=== PATIENT | male | born 1960 | race Caucasian/White ===

== ENCOUNTER → 2019-10-31 | Outpatient (CLI) | payer OTHER, SELFPAY ==
--- NOTE | 2019-11-02 08:01 | PFT ---
INTRODUCTION: The patient is a 59-year-old male that presents for pulmonary function studies secondary to a diagnosis of shortness of breath. Respiratory therapy reports good patient effort. Bronchodilators were used during testing. INTERPRETATION: Forced expiration spirometry demonstrates no evidence of a large airways obstructive ventilatory defect. There was no significant response to aerosolized bronchodilators. Spirograms are of good quality and plateau normally. Body plethysmography was performed and reveals lung volumes to be within normal limits. Diffusing capacity by single breath CO is also within normal limits. IMPRESSION: Grossly normal pulmonary function studies.
== END | disposition home or self-care (01) ==
PROVIDERS: Referring Provider Nurse Practitioner Family; Visit Provider Nurse Practitioner Family
DX: R06.02 Shortness of breath (principal); R07.89 Other chest pain; R53.83 Other fatigue; R53.1 Weakness
CPT/HCPCS: 94060; 94726; 94729

== ENCOUNTER → 2019-11-16 | Outpatient (CLI) | payer OTHER, SELFPAY ==
--- NOTE | 2019-11-17 12:37 | STRESSREP ---
Stress Test Report Date: 11/16/2019 Procedure: Exercise tolerance test Indications: Shortness of breath, chest tightness Consent: Per the patient Procedure: The patient exercised on a José Manuel protocol for 7 minutes and 30 seconds achieving a peak heart rate of 150 bpm (92 % predicted maximal heart rate) with a peak blood pressure 144/80 mmHg and a peak MET capacity of approximately 9.3 mET's. The baseline ECG demonstrated normal sinus rhythm. The peak exercise ECG demonstrated no significant ischemic changes. [There were no cardiac dysrhythmias pretest, during exercise, or recovery]. The functional capacity was considered normal for age. Patient had chest tightness at rest that became worse with exercise. The examination was discontinued secondary to dyspnea. Impression: 1. Technically adequate (percent predicted maximal heart rate greater than 85%) exercise tolerance test 2. Stress test is positive for chest pain at baseline that got worse with exertion. 3. Stress test test is negative for exercise-induced EKG changes of ischemia. 4. Functional capacity is normal for age This note was generated with [employer] software. It may contain incorrect words, spelling, and punctuation that were not noted in checking the note before signing.
== END | disposition home or self-care (01) ==
PROVIDERS: PCP Nurse Practitioner Family; Referring Provider Nurse Practitioner Family; Visit Provider Nurse Practitioner Family
DX: R06.02 Shortness of breath (principal); R07.89 Other chest pain
CPT/HCPCS: 93017

== ENCOUNTER → 2019-11-17 | Outpatient (CLI) | payer OTHER, SELFPAY ==
[2019-11-16 14:43] VITALS: BMI 33.7
--- OUTSIDE RECORDS SUMMARY | 2020-04-23 07:49 | XMS RPT_ITS | CCD ---
:1960 External Reference #:[id number] Author Organization [employer] Care Team Providers Name Role Phone WASHINGTON MARIE Admitting Unavailable MORAH, WASHINGTON Attending Unavailable HORTON, A Referring Unavailable MORAH, WASHINGTON Primary Care Unavailable HORTON, A Consulting Unavailable PROVIDER Consulting Unavailable PROVIDER Consulting Unavailable PROVIDER Consulting Unavailable HORTON, A Referring Unavailable REED, DO Admitting Unavailable REED, DO Attending Unavailable REED, DO Primary Care Unavailable HORTON, A Consulting Unavailable PROVIDER Consulting Unavailable PROVIDER Consulting Unavailable PROVIDER Consulting Unavailable KINCAID, C Admitting Unavailable KINCAID, C Attending Unavailable KINCAID, C Primary Care Unavailable HORTON, A Consulting Unavailable HORTON, A Referring Unavailable PROVIDER Consulting Unavailable PROVIDER Consulting Unavailable PROVIDER Consulting Unavailable Teresa (Gyn Physician) Primary Care Provider Allergies Reported Allergen Reaction(s) Severity Date of Onset Location Sulfonamides (Antibiotic) Unknown [facility] Reposi tory Sulfonamides (Antibiotic) 07-20-2005 - [facility] ([id number]) Medications Medication Name Sig Date Prescriber Location Omeprazole omeprazole 40 mg capsule [facility] Provider [facility] ([id number]) Take 40 mg by mouth once daily. 0 Active Comment: Take 40 mg by mouth once nilo ly. Spironolactone spironolactone 03-11-2020 Jerry (Gyn Physician) [facility] (ALDACTONE) 25 mg tablet Teresa ([id number]) Indications: Essential hypertension , Pedal edema Take 1 tablet by mouth once daily. 30 tablet 2 03/11/2020 Active Comment: Take 1 tablet by mouth once daily. Problems Category Problem Name Status Date Location Abdominal pain Left upper quadrant Active [facility] pain (32025) Allergic reactions Allergy status to Active 10-08-2019 - [facility] sulfonamides [facility] (68490) Anxiety disorders Anxiety Active [facility] (04032) Essential hypertension Essential (primary) Active 11-25-2013 - [facility] hypertension [facility] ([id number]) Fluid and electrolyte Hypokalemia Active 10-08-2019 - Jose R P omerene disorders [facility] (24123) Gastrointestinal [facility] (09037[facility] Nonspecific chest pain Chest pain Active [facility] (95836) Other lower respiratory Shortness of breath Active 10-08-2019 - Jose R Pomerene disease [facility] (42580) Other upper respiratory Acute upper Active 2019 - Jose R Pomerene infections respiratory [facility] infection, (63886) unspecified Pneumonia (except that Pneumonia, Active 10-08-2019 - Jose R Pomerene caused by tuberculosis or unspecified organism [facility] sexually transmitted (12957) disease) Residual codes; Sleep apnea, Active 10-08-2019 - Jose R Pomeren e unclassified unspecified [facility] (08245) Residual codes; Edema of foot Active [facility] linic unclassified ([id number]) Results Result Name Value Range Unit Interpretation Flag Date Location progress on 2020-04 PROGRESS HNO ID: [id number] Normal 04-12-2020 [facility] Author: Andre (Arlen.Kathya) REYNA Talavera.KATHYA [place] ([id number]) Service: ? Author Type: Nurse Practitioner Type: Progress Notes Filed: 04/12/2020 9:12 AM Note Text: Chief Complaint Patient presents with: Follow Up This Team Access Model visit is a virtual encounter. It requ ired patient-provider interaction for the medical decision making as documented below. Patient was offered a virtual/telemedicine appointmen t in lieu of an office visit due to recommendations to reduce patient exp osure to COVID-19. HIPAA secured video was used for evaluation of this patient. Patient agrees to the visit: Yes Patient Location: [facility] Jose Asif is a 59 year old male who is contacted today f or a virtual visit This is an established patient of Dr. Jerry Lama APRN.KATHYA Reports: Follow-up on blood pressure. Placed on Spironolacto ne at previous appointment. Previously been on another diuretic bu t it caused low potassium levels. Was changed to spironolactone. States over the past week he feels at times he has some chest tightness and shortness of breath. This is been chronic for the past 6 months. He has h ad spirometry, echocardiogram, exercise stress test without any significant findings or ischemic changes noted on testing. Has not seen cardiology or pulmonology. No current or active chest pain. Chest tightnes s and shortness of breath occurs at rest and/or with activity. He was given a trial of an inhaler but it did not provide significant relie f of his shortness of breath. He has been compliant with aspire lacto ne over the past month. Blood pressures have averaged 140/80. Denies ene e effects from the medication. Past medical history, appointments, medications, allergies r eviewed 04/12/2020 Previous Medical History PAST MEDICAL HISTORY Diagnosis Date - Abdominal pain, left upper quadrant - Allergic rhinitis, cause unspecified - Arrhythmia - Blood in stool - Hernia of unspecified site of abdominal cavity without men tion of obstruction or gangrene umbilical - High cholesterol - Snoring - Umbilical hernia without mention of obstruction or gangren e - Unspecified essential hypertension borderline Previous Surgical History PAST SURGICAL HISTORY Procedure Laterality Date - CHOLECYSTECTOMY 11/20/2019 Dr. Sanchez - COLONOSCOP W/ OR W/O [facility] SPEC 12/16/15 Colonoscopy - COLONOSCOPY 2002 - REMOVAL OF TONSILS,12+ Y/O age 19 - REPAIR UMBILICAL KAYLA,5+Y/O,REDUC 10/25/2009 - UNSPECIFIED ORAL SURGERY PROCEDURE, BY REPORT one wisdom tooth removed Family History FAMILY HISTORY Problem Relation Age of Onset - Diabetes Mother - Hypertension Mother - Lipids Mother - Diabetes Maternal Grandmother Patient Allergies ALLERGIES Allergen Reactions - Sulfa (Sulfonamide * Current Medications Current Outpatient Medications on File Prior to Visit Medication Sig - spironolactone (ALDACTONE) 25 mg tablet Take 1 tablet by m outh once daily. - omeprazole 40 mg capsule Take 40 mg by mouth once daily. No current facility-administered medications on file prior t o visit. Social History Social History Tobacco Use - Smoking status: Never Smoker - Smokeless tobacco: Former User - Tobacco comment: used for 20-30 years, quit about 13 years ago Substance Use Topics - Alcohol use: Yes Frequency: Monthly or less Drinks per session: 1 or 2 Binge frequency: Less than monthly Comment: occasionally/socially - Drug use: No Review of Symptoms GENERAL: No malaise or fatigue. No fevers. HEENT: Negative for headaches Nose POS for congestion and nasal discharge NECK: Negative for pain or swelling. RESPIRATORY: No wheezing, Difficulty breathing. No cough. Ch ronic shortness of breath CARDIOVASCULAR: Negative for chest pain. Chronic chest tight ness MUSCULOSKELETAL: Negative for bodyaches. Occasional extremit y swelling SKIN: Negative for rash or itching Neuro: No lightheadedness or dizziness EXAM: There were no vitals taken for this visit. Virtual visit completed using video, limited exam completed. Patient sounds or appears ill: No General Appearance: Well appearing, alert, in no acute distr ess, well-hydrated, well nourished. Skin: Skin color normal Head: Normocephalic. No facial swelling or redness. EENT: Eyes nonreddened. No discharge. External ears nonredde marjorie and no swelling. Neck: No mass or lesions. No swelling. FROM Patient is not able to speak in complete sentences: No Patient has labored breathing: No. Patient is audibly coughing: No Psych: Attitude - cooperative, easily engaged in conversatio n Affect - Euthymic, normal mood Mental status: Alert. Speech is clear and fluent with good r epetition, comprehension Appearance - Normal hygiene and grooming appropriate Coordination: No abnormal or extraneous movements. Gait/Stance: Posture is normal. Health Maintenance List HEPATITIS C SCREENING due on 1980 HIV SCREENING due on 1980 BP CONTROLLED (<130/80) due on 1980 DTAP,TDAP,TD(1 - Tdap) due on 1981 LIPID SCREEN due on 1997 SHINGRIX VACCINE(1 of 2) due on 2012 PROSTATE CANCER SCREENING DISCUSSION due on 2017 INFLUENZA(1) due on 03/12/2020 ANNUAL PCP TEAM CHRONIC DISEASE VISIT due on 03/11/2021 DIABETES SCREEN due on 01/01/2023 COLONOSCOPY due on 12/16/2025 MENINGOCOCCAL CONJUGATE Completed Data reviewed Last 5 Encounter BP Readings: Date: BP: 03/11/2020 138/92 02/06/2020 132/78 03/21/2017 122/82 02/10/2016 121/84 11/22/2015 126/76 BMI Readings from Last 5 Encounters: 03/11/20 : 34.17 kg/m? 02/06/20 : 33.51 kg/m? 03/21/17 : 33.25 kg/m? 02/10/16 : 32.98 kg/m? 12/16/15 : 33.16 kg/m? Last 5 Encounter Wt Readings: Date: Wt: 03/11/2020 117.5 kg (259 lb) 02/06/2020 115.2 kg (254 lb) 03/21/2017 114.3 kg (252 lb) 02/10/2016 113.4 kg (250 lb) 11/22/2015 114 kg (251 lb 5.2 oz) Medication and allergy list reviewed, reconciled and updated 04/12/2020 ASSESSMENT/PLAN: 1. Essential hypertension - ICD9: 401.9, ICD10: I10 (primary diagnosis) - fair control - Continue current medication(s) - Encouraged dietary sodium restriction/DASH diet - Recommend home blood pressure monitoring, to bring results in on next visit - Reviewed risks of HTN and principles of treatment - Goal of BP <140/90 2. Low blood potassium - ICD9: 276.8, ICD10: E87.6 Recheck CMP - CMP (CMP) (FOR REMOTE [facility] USE) 3. Other chest pain - ICD9: 786.59, ICD10: R07.89 Chest pain of unclear etiology, patient with significant ris k factor(s) of Hypertension and Obesity. Previous work-up completed which w as unremarkable to this point. No active chest pain during tolouise y's appointment. - Referral to Cardiology Patient will seek care in the emergency room for the followi ng: Any concerns of chest pain pressure or palpitations; any chest p ain that changes in severity, quality or location; chest pain that is associated with lightheadedness, dizziness, indigestion and/or shortnes s of breath, or that radiates to the jaw, neck, or back. The patient is i nstructed to call 911 for transport via EMS or head directly to the ER. T he patient verbalizes understanding. Follow-up with primary care provider after cardiology consul tation. - CONSULT TO CARDIOLOGY Andre Talavera DNP.SHEET METAL SUPERINTENDENT This note was completed with [email or web address] dictation software. Note was reviewed for accuracy. There may be minor misspellings or gr ammar miscues with [email or web address] Dictation. [facility] [address] [place], [place] [address] Total appointment time on virtual with patient = 20 minutes progress on 2020-02 PROGRESS HNO ID: [id number] Normal 03-11-2020 [facility] Author: Jerry (Gyn Physician) [facility] ([id number]) Service: ? Author Type: Nurse Practitioner Type: Progress Notes Filed: 03/20/2020 12:58 PM Note Text: Patient presents with: Follow Up: Elevated BP, swelling in feets and ankles intermi ttently HPI: Jose Asif is a 59 year old male who presents to the offi ce today for review of health conditions. Concerns today: He is still having some SOB, and starting to think that this is r/t stress. Cannot pinpoint anything specific that c auses it or when it happens. He does have a lot of stress at his job. Has gained some weight. Has noticed over the past 2-3 weeks, his ankles have been swelling a bit. This swelling improves with elevat ion. His Bps have been running 140's/90's at home. Last 3 Encounter BP Readings: Date: BP: 03/11/2020 138/92 02/06/2020 132/78 03/21/2017 122/82 PAST MEDICAL HISTORY Diagnosis Date - Abdominal pain, left upper quadrant - Allergic rhinitis, cause unspecified - Arrhythmia - Blood in stool - Hernia of unspecified site of abdominal cavity without men tion of obstruction or gangrene umbilical - High cholesterol - Snoring - Umbilical hernia without mention of obstruction or gangren e - Unspecified essential hypertension borderline PAST SURGICAL HISTORY Procedure Laterality Date - CHOLECYSTECTOMY 11/20/2019 Dr. Sanchez - COLONOSCOP W/ OR W/O [facility] SPEC 12/16/15 Colonoscopy - COLONOSCOPY 2002 - REMOVAL OF TONSILS,12+ Y/O age 19 - REPAIR UMBILICAL KAYLA,5+Y/O,REDUC 10/25/2009 - UNSPECIFIED ORAL SURGERY PROCEDURE, BY REPORT one wisdom tooth removed Social History Tobacco Use - Smoking status: Never Smoker - Smokeless tobacco: Former User - Tobacco comment: used for 20-30 years, quit about 13 years ago Substance Use Topics - Alcohol use: Yes Frequency: Monthly or less Drinks per session: 1 or 2 Binge frequency: Less than monthly Comment: occasionally/socially - Drug use: No FAMILY HISTORY Problem Relation Age of Onset - Diabetes Mother - Hypertension Mother - Lipids Mother - Diabetes Maternal Grandmother Allergies: ALLERGIES Allergen Reactions - Sulfa (Sulfonamide * Current Meds: omeprazole 40 mg capsule Take 40 mg by mouth once daily. Review of Systems Constitutional: Negative. HENT: Negative. Respiratory: Positive for chest tightness and shortness of b reath. Cardiovascular: Positive for leg swelling. Gastrointestinal: Negative. Endocrine: Negative. Genitourinary: Negative. Musculoskeletal: Negative. Neurological: Negative. Psychiatric/Behavioral: Stress PE: 03/11/20 0844 BP: 138/92 Pulse: 84 Resp: 16 Weight: 117.5 kg (259 lb) Physical Exam Vitals signs and nursing note reviewed. Constitutional: Appearance: Normal appearance. HENT: Head: Normocephalic and atraumatic. Cardiovascular: Rate and Rhythm: Normal rate and regular rhythm. Pulses: Normal pulses. Heart sounds: Normal heart sounds. Pulmonary: Effort: Pulmonary effort is normal. Breath sounds: Normal breath sounds. Skin: General: Skin is warm and dry. Capillary Refill: Capillary refill takes less than 2 seconds . Neurological: General: No focal deficit present. Mental Status: He is alert and oriented to person, place, an d time. Psychiatric: Mood and Affect: Mood normal. Behavior: Behavior normal. ASSESSMENT/PLAN: 1. Essential hypertension - ICD9: 401.9, ICD10: I10 (primary diagnosis) Would rather not be taking a medication for his blood pressu re, as he feels he has felt poorly from these types of medications in the past. Will utilize spironolactone, as he does have pedal edema as well as hx hypokalemia. He will notify me in 1 month of recent at-home blood pressures. Will follow up in the office again in 3 months. - SPIRONOLACTONE 25 MG TABLET 2. Pedal edema - ICD9: 782.3, ICD10: R60.0 See #1. - SPIRONOLACTONE 25 MG TABLET 3. Situational anxiety - ICD9: 300.09, ICD10: F41.8 Causing his SOB. Negative cardiac work up. At this time refu sing medication for these symptoms. Will continue to monitor. Jerry Lama APRN.SHEET METAL SUPERINTENDENT To ER if develops chest pain, shortness of breath, or severe worsening of symptoms. Discussed risks, benefits, alternatives, and potential side effects of medications. Patient expressed understanding and agreed with the plan. Jerry Lama APRN.SHEET METAL SUPERINTENDENT [address] [place] [address] cnov on 2020-03-11 CNOV Office Visit (FAMPWS) Normal 03-11-[address] [place] [address] JOSE Rojas ([id number]) 1960 Formerly [facility] Date Time Provider Department ([id number]) 03/11/20 8:40 AM [facility]KATH[facility] today, we recorded the following informati on about you: Pulse Respiration Blood pressure Weight 84/minute 16/minute 138/92 117.5 kg Jerry Lama APRN.CNP 03/20/2020 12:58 PM Signed Patient presents with: Follow Up: Elevated BP, swelling in feets and ankles intermi ttently HPI: Jose Asif is a 59 year o ld male who presents to the office today for review of health conditions. Concerns today: He is still having some SOB, and starting to think that this is r/t stress. Cannot pinpoint anything specific that causes it or when it happens. He does have a lot of stress at his job. Has gained some weight. Has noticed over the past 2-3 weeks, his ankles have been swelling a bit. This swelling improves with elevation. His Bps have been running 140's/90's at home. Last 3 Encounter BP Readings: Date: BP: 03/11/2020 138/92 02/06/2020 132/78 03/21/2017 122/82 PAST MEDICAL HISTORY Diagnosis Date - Abdominal pain, left upper quadrant - Allergic rhinitis, cause unspecified - Arrhythmia - Blood in stool - Hernia of unspecified site of abdominal cavity without mention of obstruction or gangrene umbilical - High cholesterol - Snoring - Umbilical hernia without mention of obstruction or gangren e - Unspecified essential hypertension borderline PAST SURGICAL HISTORY Procedure Laterality Date - CHOLECYSTECTOMY 11/20/2019 Dr. Sanchez - COLONOSCOP W/ OR W/O [facility] SPEC 6/6/16 Colonoscopy - COLONOSCOPY 2002 - REMOVAL OF TONSILS,12+ Y/O age 19 - REPAIR UMBILICAL KAYLA,5+Y/O,REDUC 10/25/2009 - UNSPECIFIED ORAL SURGERY PROCEDURE, BY REPORT one wisdom tooth removed Social History Tobacco Use - Smoking status: Never Smoker - Smokeless tobacco: Former User - Tobacco comment: used for 20-30 years, quit about 13 years ago Substance Use Topics - Alcohol use: Yes Frequency: Monthly or less Drinks per session: 1 or 2 Binge frequency: Less than monthly Comment: occasionally/socially - Drug use: No FAMILY HISTORY Problem Relation Age of Onset - Diabetes Mother - Hypertension Mother - Lipids Mother - Diabetes Maternal Grandmother Allergies: ALLERGIES Allergen Reactions - Sulfa (Sulfonamide * Current Meds: omeprazole 40 mg capsule Take 40 mg by mouth once daily. Review of Systems Constitutional: Negative. HENT: Negative. Respiratory: Positive for chest tightness and shortness of b reath. Cardiovascular: Positive for leg swelling. Gastrointestinal: Negative. Endocrine: Negative. Genitourinary: Negative. Musculoskeletal: Negative. Neurological: Negative. Psychiatric/Behavioral: Stress PE: 03/11/20 0844 BP: 138/92 Pulse: 84 Resp: 16 Weight: 117.5 kg (259 lb) Physical Exam Vitals signs and nursing note reviewed. Constitutional: Appearance: Normal appearance. HENT: Head: Normocephalic and atraumatic. Cardiovascular: Rate and Rhythm: Normal rate and regular rhythm. Pulses: Normal pulses. Heart sounds: Normal heart sounds. Pulmonary: Effort: Pulmonary effort is normal. Breath sounds: Normal breath sounds. Skin: General: Skin is warm and dry. Capillary Refill: Capillary refill takes less than 2 seconds . Neurological: General: No focal deficit present. Mental Status: He is alert and oriented to person, place, an d time. Psychiatric: Mood and Affect: Mood normal. Behavior: Behavior normal. ASSESSMENT/PLAN: 1. Essential hypertension - ICD9: 401.9, ICD10: I10 (primary diagnosis) Would rather not be taking a medication for his blood pressure, as he feels he has felt poorly from these types of medications in the past. Will utilize spironolactone, as he does have pedal ed reji as well as hx hypokalemia. He will notify me in 1 month of recent at-home blood pre ssures. Will follow up in the office again in 3 months. - SPIRONOLACTONE 25 MG TABLET 2. Pedal edema - ICD9: 782.3, ICD10: R60.0 See #1. - SPIRONOLACTONE 25 MG TABLET 3. Situational anxiety - ICD9: 300.09, ICD10: F41.8 Causing his SOB. Negative cardiac work up. At this time re fusing medication for these symptoms. Will continue to monitor. Jerry Lama APRN.CNP To ER if develops chest pain, shortness of breath, or severe worsening of symptoms. Discussed risks, benefits, alternatives, and potential side effects of medications. Patient expressed understanding and agreed with the plan. Jerry Lama APRN.CNP [address] [place] [address] Jerry Lama APRN.CNP 03/11/2020 9:12 AM Signed Start taking your spironolactone on a daily basis, in the mo rning. Send me a [employer] message in 3-4 weeks w ith some recent BP readings and report of your ankle swelling. Follow up in the office in 3 months. Referring Provider: SELF [[id number]] Allergies As of Date: 03/11/2020 Noted Allergy Reaction SULFA (SULFONAMIDE ANTIBIOTICS) 07/20/2005 Date Reviewed: 03/11/2020 Reviewed by: Jerry Lama - Fully Assessed Reason for Visit: Follow Up [171] Cmt: Elevated BP, swelling in fe ets and ankles intermittently Primary Visit Diagnosis:Essential hypertension [I10] Other Visit Diagnoses:Pedal edema [R60.0] Situational anxiety [F41.8] Order(s):spironolactone (ALDACTONE) 25 mg tabletTake 1 tab let by mouth once daily.Disp: 30 tabletRfl: 2 Prescriptions as of 03/11/2020 Sig: OMEPRAZOLE 40 MG CAPSULE,MATTHEW* Take 40 mg by mouth once josé manuel * SPIRONOLACTONE 25 MG TABLET Take 1 tablet by mouth once d* Problem List As Of Date 03/11/2020 Noted Resolved ABDOMINAL PAIN LUQ [R10.12] Hypertension [I10] 11/25/2013 Blood in stool [K92.1] Other instructions from your clinician: Start taking your spironolactone on a daily basis, in the mo rning. Send me a [employer] message in 3-4 weeks with some recent BP r eadings and report of your ankle swelling. Follow up in the office in 3 months. Prescriptions ordered this encounter Disp Refills Start End SPIRONOLACTONE 25 MG TABLET 30 t* 2 03/11/2020 Route: ORAL Sig: Take 1 tablet by mouth once daily. Disposition: Return in about 3 months (around 06/10/2020) fo r anxiety, SOB, HTN follow up. Follow-up and Disposition History Recorded Encounter Status:Closed by JERRY LAMA on 03/20/20 progress on 2020-01 PROGRESS HNO ID: [id number] Normal 02-06-2020 [facility] Author: Dora Santiago (Alena) Lottie Nolasco ([id number]) Service: ? Author Type: Physician Gold Nib Grinder Type: Progress Notes Filed: 02/06/2020 7:32 AM Note Text: This note was created using NoteWriter. Subjective Jose Asif is a 59 year old male. HPI Patient presents with left lower tooth pain over the past 4 days. He thinks he has a filling in that tooth that might be coming l oose. He has had some swelling of his lymph nodes on that side and left e ar pain. No fever. No drainage from the tooth. He did take ibuprofen [id number]-[id number]. No nausea or vomiting. No trouble opening and closing his jaw. He has a dentist appointment next week. Review of Systems HENT: Dental pain All other systems reviewed and are negative. PAST MEDICAL HISTORY Diagnosis Date - Abdominal pain, left upper quadrant - Allergic rhinitis, cause unspecified - Arrhythmia - Blood in stool - Hernia of unspecified site of abdominal cavity without men tion of obstruction or gangrene umbilical - High cholesterol - Snoring - Umbilical hernia without mention of obstruction or gangren e - Unspecified essential hypertension borderline Current Outpatient Medications Medication Sig Dispense Refill - omeprazole 40 mg capsule Take 40 mg by mouth once daily. - amoxicillin (AMOXIL) 875 mg tablet Take 1 tablet by mouth twice daily for 10 days. 20 tablet 0 No current facility-administered medications for this visit. PAST SURGICAL HISTORY Procedure Laterality Date - CHOLECYSTECTOMY 11/20/2019 Dr. Sanchez - COLONOSCOP W/ OR W/O [facility] SPEC 12/16/15 Colonoscopy - COLONOSCOPY 2002 - REMOVAL OF TONSILS,12+ Y/O age 19 - REPAIR UMBILICAL KAYLA,5+Y/O,REDUC 10/25/2009 - UNSPECIFIED ORAL SURGERY PROCEDURE, BY REPORT one wisdom tooth removed FAMILY HISTORY Problem Relation Age of Onset - Diabetes Mother - Hypertension Mother - Lipids Mother - Diabetes Maternal Grandmother Social History Tobacco Use - Smoking status: Never Smoker - Smokeless tobacco: Former User - Tobacco comment: used for 20-30 years, quit about 13 years ago Substance Use Topics - Alcohol use: Yes Frequency: Monthly or less Drinks per session: 1 or 2 Binge frequency: Less than monthly Comment: occasionally/socially - Drug use: No Objective BP 132/78 Pulse 88 Temp 37.2 ?C (99 ?F) (Tympanic) Res p 16 Wt 115.2 kg (254 lb) SpO2 96% BMI 33.51 kg/m? Physical Exam Vitals signs reviewed. Constitutional: Appearance: Normal appearance. HENT: Head: Normocephalic and atraumatic. Right Ear: Tympanic membrane, ear canal and external ear nor mal. Left Ear: Tympanic membrane, ear canal and external ear norm al. Nose: Nose normal. Mouth/Throat: Comments: Patient has fillings in teeth #20 and 18. No obvio us swelling of the gumline. He does have some left anterior cer vical lymphadenopathy palpated which is tender. No trismus. No sig nificant overlying facial swelling. Skin: General: Skin is warm and dry. Findings: No rash. Neurological: Mental Status: He is alert. Assessment and Plan ASSESSMENT/PLAN: 1. Dental infection - ICD9: 522.4, ICD10: K04.7 I will start him on amoxicillin. Keep dental appointment. Di scussed red flag symptoms that would warrant ER. Patient agreeable. CROW Estrada on 2020-02-06 [facility] Normal 02-06-20 [place] JOSE Rojas R ([id number]) 1960 [address] JEFF [place] Date Time Provider Department ([id number]) 02/06/20 7:00 AM DORA LISA (ALENA) [facility] During your visit today, we recorded the following informati on about you: Temperature Pulse Respiration Blood pressure 99 degrees 88/minute 16/minute 132/78 Weight 115.2 kg Dora Lisa PA-C 02/06/2020 7:32 AM Signed This note was created using NoteWriter. Subjective Jose Asif is a 59 year old male. HPI Patient presents with left lower tooth p ain over the past 4 days. He thinks he has a filling in that tooth that might be coming loose. He h as had some swelling of his lymph nodes on that side and left ear pain. No fever. No drainage from the tooth. He did take ibuprofen o [id number]. No nausea or vomiting. No trouble opening and closing his jaw. [facility]. Review of Systems HENT: Dental pain All other systems reviewed and are negative. PAST MEDICAL HISTORY Diagnosis Date - Abdominal pain, left upper quadrant - Allergic rhinitis, cause unspecified - Arrhythmia - Blood in stool - Hernia of unspecified site of abdominal cavity without mention of obstruction or gangrene umbilical - High cholesterol - Snoring - Umbilical hernia without mention of obstruction or gangren e - Unspecified essential hypertension borderline Current Outpatient Medications Medication Sig Dispense Refill - omeprazole 40 mg capsule Take 40 mg by mouth once daily. - amoxicillin (AMOXIL) 875 mg tablet Hugo e 1 tablet by mouth twice daily for 10 days. 20 tablet 0 No current facility-administered medications for this visit. PAST SURGICAL HISTORY Procedure Laterality Date - CHOLECYSTECTOMY 11/20/2019 Dr. Sanchez - COLONOSCOP W/ OR W/O [facility] SPEC 12/16/15 Colonoscopy - COLONOSCOPY 2002 - REMOVAL OF TONSILS,12+ Y/O age 19 - REPAIR UMBILICAL KAYLA,5+Y/O,REDUC 10/25/2009 - UNSPECIFIED ORAL SURGERY PROCEDURE, BY REPORT one wisdom tooth removed FAMILY HISTORY Problem Relation Age of Onset - Diabetes Mother - Hypertension Mother - Lipids Mother - Diabetes Maternal Grandmother Social History Tobacco Use - Smoking status: Never Smoker - Smokeless tobacco: Former User - Tobacco comment: used for 20-30 years, quit about 13 years ago Substance Use Topics - Alcohol use: Yes Frequency: Monthly or less Drinks per session: 1 or 2 Binge frequency: Less than monthly Comment: occasionally/socially - Drug use: No Objective BP 132/78 Pulse 88 Temp 37.2 ?C (99 ?F) (Tympanic) R herlinda 16 Wt 115.2 kg (254 lb) SpO2 96% BMI 33.51 kg/m? Physical Exam Vitals signs reviewed. Constitutional: Appearance: Normal appearance. HENT: Head: Normocephalic and atraumatic. Right Ear: Tympanic membrane, ear canal and external ear nor mal. Left Ear: Tympanic membrane, ear canal and external ear norm al. Nose: Nose normal. Mouth/Throat: Comments: Patient has fillings in teeth #20 and 18. No obvio us swelling of the gumline. He does have some left ante rior cervical lymphadenopathy palpated which is tender. No trismus. No significant overlying facial swelling. Skin: General: Skin is warm and dry. Findings: No rash. Neurological: Mental Status: He is alert. Assessment and Plan ASSESSMENT/PLAN: 1. Dental infection - ICD9: 522.4, ICD10: K04.7 I will start him on amoxicillin. Keep dental appointme nt. Discussed red flag symptoms that would warrant ER. Patient agreeable. LAY EstradaC Referring Provider: SELF [[id number]] Allergies As of Date: 02/06/2020 Noted Allergy Reaction SULFA (SULFONAMIDE ANTIBIOTICS) 07/20/2005 Date Reviewed: 02/06/2020 Reviewed by: Bessy Holt Ma - Fully Assessed Reason for Visit: Dental Problem [31] Cmt: left side tooth pain migratin g into gland and ear x 4 days Primary Visit Diagnosis:Dental infection [K04.7] Order(s):amoxicillin (AMOXIL) 875 mg tabletTake 1 tablet by mouth twice daily for 10 days.Disp: 20 tabletRfl: 0 Prescriptions as of 02/06/2020 Sig: OMEPRAZOLE 40 MG CAPSULE,MATTHEW* Take 40 mg by mouth once josé manuel * AMOXICILLIN 875 MG TABLET Take 1 tablet by mouth twice * Problem List As Of Date 02/06/2020 Noted Resolved ABDOMINAL PAIN LUQ [R10.12] Hypertension [I10] 11/25/2013 Blood in stool [K92.1] Prescriptions ordered this encounter Disp Refills Start End AMOXICILLIN 875 MG TABLET 20 t* 0 02/06/2020 02/16/2020 Route: ORAL Sig: Take 1 tablet by mouth twice daily for 10 days. Encounter Status:Closed by DORA LISA PA-C on 02/06/20 progress on 2019-12 PROGRESS HNO ID: [id number] Normal 01-08-2020 [facility] Author: Jerry Harmon) Treesa Nolasco ([id number]) Service: ? Author Type: Nurse Practitioner Type: Progress Notes Filed: 01/08/2020 5:01 PM Note Text: Chief Complaint No chief complaint on file. In lieu of an in person visit due to coronavirus COVID 19 pa ndemic concerns, a virtual Zoom visit was performed with patient. Anabela bucio is aware that I am not fully able to assess symptoms and do a f ull physical exam including vital signs in office at this time. Patient c onsents to the visit. This Team Access Model visit is a virtual encounter. It requ ired patient-provider interaction for the medical decision making as documented below. Patient was offered a virtual/telemedicine appointmen t in lieu of an office visit due to recommendations to reduce patient exp osure to COVID-19. HIPAA secured video was used for evaluation of this patient. 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 Every once in a while he gets the SOB feeling and gets winded easily. But do es not happen very often. He has been back to work for a couple months, an d states he has quite a bit of stress-but states that it comes with the job. He does wonder if the SOB feeling is related to some type of food/bl oating. When he has bloating, he feels that it possibly does put pressure on his lungs and causes some SOB. His stools are pretty normal, if anythi ng on the looser side-but not runny like diarrhea. He does seem to hav e sinus pressure or congestion at the times she has these SOB feelin gs. He does have a fluttering feeling, did wear a heart monitor about 20 years ago for this. Past medical history, appointments, medications, allergies r eviewed 01/08/2020 Previous Medical History PAST MEDICAL HISTORY Diagnosis Date - Abdominal pain, left upper quadrant - Allergic rhinitis, cause unspecified - Arrhythmia - Blood in stool - Hernia of unspecified site of abdominal cavity without men tion of obstruction or gangrene umbilical - High cholesterol - Snoring - Umbilical hernia without mention of obstruction or gangren e - Unspecified essential hypertension borderline Previous Surgical History PAST SURGICAL HISTORY Procedure Laterality Date - CHOLECYSTECTOMY 11/20/2019 Dr. Sanchez - COLONOSCOP W/ OR W/O [facility] SPEC 12/16/15 Colonoscopy - COLONOSCOPY 2002 - REMOVAL OF TONSILS,12+ Y/O age 19 - REPAIR UMBILICAL KAYLA,5+Y/O,REDUC 10/25/2009 - UNSPECIFIED ORAL SURGERY PROCEDURE, BY REPORT one wisdom tooth removed Family History FAMILY HISTORY Problem Relation Age of Onset - Diabetes Mother - Hypertension Mother - Lipids Mother - Diabetes Maternal Grandmother Patient Allergies ALLERGIES Allergen Reactions - Sulfa (Sulfonamide * Current Medications Current Outpatient Medications on File Prior to Visit Medication Sig - perflutren lipid microspheres (DEFINITY) 1.1 mg/mL injecti on (to be provided with echo procedure) Inject 1.3 mL intravenously as directed. Administration Instructions: If no IV access, insert saline lock prior to administering contrast. Discontinue saline lock post exam. I f patient has central line or IVAD, may access for administration accordin g to line specific nursing protocol. Once exam is complete, flush line and de-access per line specific nursing protocol. Diluted IV Bolus: Dilute 1.3 ml of Definity with 8.7 ml of preservative-free saline. No current facility-administered medications on file prior t o visit. Social History Social History Tobacco Use - Smoking status: Never Smoker - Smokeless tobacco: Former User - Tobacco comment: used for 20-30 years, quit about 13 years ago Substance Use Topics - Alcohol use: Yes Frequency: Monthly or less Drinks per session: 1 or 2 Binge frequency: Less than monthly Comment: occasionally/socially - Drug use: No Review of Symptoms GENERAL: Occasional fatigue. No fevers. HEENT: Negative for headaches NECK: Negative for pain or swelling. No lumps RESPIRATORY:Occasional SOB CARDIOVASCULAR: Negative for chest pain. Occasional flutteri ng in chest. GI: No nausea, vomiting, or diarrhea MUSCULOSKELETAL: Negative for bodyaches SKIN: Negative for rash or itching Neuro: No lightheadedness or dizziness EXAM: There were no vitals taken for this visit. Virtual visit completed using video, limited exam completed. General Appearance: Well appearing, alert, in no acute distr ess, well-hydrated, well nourished. Skin: Skin color normal Head: Normocephalic. No facial swelling or redness. Affect - Euthymic, normal mood Mental status: Alert. Speech is clear and fluent with good r epetition, comprehension Appearance - Normal hygiene and grooming appropriate Coordination: No abnormal or extraneous movements. Gait/Stance: Posture is normal. Health Maintenance List HEPATITIS C SCREENING due on 1980 HIV SCREENING due on 1980 BP CONTROLLED (<130/80) due on 1980 DTAP,TDAP,TD(1 - Tdap) due on 1981 LIPID SCREEN due on 1997 SHINGRIX VACCINE(1 of 2) due on 2012 PROSTATE CANCER SCREENING DISCUSSION due on 2017 ANNUAL PCP TEAM CHRONIC DISEASE VISIT due on 11/28/2020 DIABETES SCREEN due on 01/01/2023 COLORECTAL CANCER SCREENING,SEE MODIFIER due on 12/16/2025 INFLUENZA Completed Data reviewed Last 5 Encounter BP Readings: Date: BP: 03/21/2017 122/82 02/10/2016 121/84 11/22/2015 126/76 11/21/2015 132/80 08/20/2014 132/80 BMI Readings from Last 5 Encounters: 03/21/17 : 33.25 kg/m? 02/10/16 : 32.98 kg/m? 12/16/15 : 33.16 kg/m? 11/21/15 : 33.17 kg/m? Last 5 Encounter Wt Readings: Date: Wt: 03/21/2017 114.3 kg (252 lb) 02/10/2016 113.4 kg (250 lb) 11/22/2015 114 kg (251 lb 5.2 oz) 11/21/2015 114 kg (251 lb 6.4 oz) 08/20/2014 113.4 kg (250 lb) Medication and allergy list reviewed, reconciled and updated 01/08/2020 Total appointment time on phone with patient = 21-30 minutes ASSESSMENT/PLAN: 1. SOB (shortness of breath) - ICD9: 786.05, ICD10: R06.02 ( primary diagnosis) Has improved, but still occasionally experiences. Patient fe els this may be related to bloating of his stomach, pushing up on his brittanie phragm. He will keep a food diary to determine if he can narrow down a specific food or category that seems to make him bloat. I do suspect that both his SOB and fluttering sensation of his heart are related to stress and anxiety, although patient does not necessarily feel these would be a cause. Will order Holter Monitor for this fluttering to determine any ab normal beats/rhythms as well as correlation with his SOB. Will foll ow up with him in the office in 6-8 weeks to discuss food diary, BP, an d heart monitor results. 2. Bloating - ICD9: 787.3, ICD10: R14.0 See #1. 3. Fluttering sensation of heart - ICD9: 785.1, ICD10: R00.2 See #1. Jerry Lama APRN.KATHYA welsh on 2020-01-08 KAVON Telephone (FAMWS) Normal 01-08-2020 [place] JOSE Rojas ([id number]) 1960 [place] JEFF [place] Date Time Provider Department ([id number]) 01/08/20 [facility] your visit today, we recorded the following informati on about you: Jerry Lama APRN.CNP 01/08/2020 5:01 PM Signed Please assist patient to schedule for his Holter monitor. LUCIANO Marshall [facility] 01/09/2020 2:26 PM Signed Spoke with patient who will check with [facility] and see if order can be faxed there for placement. Nohemi Brice 01/09/2020 3:00 PM Signed Patient is calling back and stated that info can be faxed to Allergies As of Date: 01/08/2020 Noted Allergy Reaction SULFA (SULFONAMIDE ANTIBIOTICS) 07/20/2005 Date Reviewed: 01/08/2020 Reviewed by: Jerry MirelesPenikese Island Leper HospitalTre Lama - Fully Assessed Reason for Visit: Holter Monitor Application [261] Prescriptions as of 01/08/2020 Sig: OMEPRAZOLE 40 MG CAPSULE,MATTHEW* Take 40 mg by mouth once josé manuel * Problem List As Of Date 01/08/2020 Noted Resolved ABDOMINAL PAIN LUQ [R10.12] Hypertension [I10] 11/25/2013 Blood in stool [K92.1] Encounter Status:Closed by KEITH STERN on 01/09/20 comp metabolic panel on 2020-01-02 Albumin [Mass/Vol] 4.5 3.9-4.9 g/dL Normal 01-02-2020 [facility] ([id number]) Comment: Performed By: #### CMP ####C [address] [phone] ALP [Catalytic activity/Vol] 64 38-113 U/L Normal 0 01-02-2020 [facility] ([id number]) Comment: Performed By: #### CMP ####C [address] [phone] ALT [Catalytic activity/Vol] 37 10-54 U/L Normal 0 01-02-2020 [facility] ([id number]) Comment: Performed By: #### CMP ####C [address] [phone] Anion gap [Moles/Vol] 12 9-18 mmol/L Normal 01-02-20 [facility] ([id number]) Comment: Performed By: #### CMP ####C [address] [phone] AST [Catalytic activity/Vol] 26 14-40 U/L Normal 0 01-02-2020 [facility] ([id number]) Comment: Performed By: #### CMP ####C [address] [phone] Bilirubin [Mass/Vol] 0.7 0.2-1.3 mg/dL Normal 0 [facility] ([id number]) Comment: Performed By: #### CMP ####C [address] [phone] Calcium [Mass/Vol] 9.2 8.5-10.2 mg/dL Normal 01-02-2020 [facility] ([id number]) Comment: Performed By: #### CMP ####C [address] [phone] Chloride [Moles/Vol] 99 97-105 mmol/L Normal 0 [facility] ([id number]) Comment: Performed By: #### CMP ####C [address] [phone] CO2 [Moles/Vol] 28 22-30 mmol/L Normal 01-02-2020 [facility] ([id number]) Comment: Performed By: #### CMP ####C [address] [phone] Creatinine [Mass/Vol] 0.88 0.73-1.22 mg/dL Normal 01-02-20 20 [facility] ([id number]) Comment: Performed By: #### CMP ####C [address] [phone] eGFR- Amer. >60 Normal 01-02-2020 [facility] ([id number]) Comment: Performed By: #### CMP ####C [address] [phone] GFR/1.73 sq M predicted >60 mL/min/{1.73_m2} Normal 01-02-2020 [facility] among non-blacks [facility] ([id number]) (S/P/Bld) [Vol rate/Area] Comment: Result Comment: eGFR (Estima trev GFR) Units of measure: mL/min/1.73 meters squared eGFR is derived from the ree xpressed MDRD Study equation using the following parameters: serum creatinine, age, gender and race. The creatinine assay has been calibrated to be traceable to IDMS. An eGFR <60 mL/min/1.73m2 fo r >3 months is consistent with chronic kidney disease. Refer to KDOQI guidelines for clinical interpretation. In patients with unstable re nal function, e.g. those with acute kidney injury, the eGFR may not accurately reflect actual GFR. Performed By: #### CMP ####C [facility] [place], [place] [phone] Glucose [Mass/Vol] 85 74-99 mg/dL Normal 01-02-2020 [facility] ([id number]) Comment: Result Comment: The [place] Diabetes Association (ADA) provides guidance for cutoff values for fasting glucose and random glucose. The ADA defines fasting as no caloric intake for at least 8 hours. Fas ting plasma glucose results between 100 to 125 mg/dL indicate increased risk for diabetes (prediabetes). Fasting plasma glucose resul ts greater than or equal to 126 mg/dL meet the criteria for diagnosis of diabetes. In the absence of unequivocal hyperglycemia, results should be confirmed by repeat testing. In a patient with classic s ymptoms of hyperglycemia or hyperglycemic crisis, random plasma glucose results greater than or equal to 200 mg/dL meet the criteria for diagnosis of diabetes. Reference: Standards of [facility] Care in Diabetes 2016, [place] Diabetes Association. Diabetes Care. 2016.39(Suppl 1). Performed By: #### CMP ####C [facility] [address] [place], [place] [phone] Potassium [Moles/Vol] 4.1 3.7-5.1 mmol/L Normal 01-02-20 [facility] ([id number]) Comment: Performed By: #### CMP ####C [facility] [place], [place] [phone] Protein [Mass/Vol] 7.5 6.3-8.0 g/dL Normal 01-02-2020 [facility] ([id number]) Comment: Performed By: #### CMP ####C [facility] [address] [place], [place] [phone] Sodium [Moles/Vol] 139 136-144 mmol/L Normal 01-02-2020 [facility] ([id number]) Comment: Performed By: #### CMP ####C [facility] [place], [place] [phone] Urea nitrogen [Mass/Vol] 12 9-24 mg/dL Normal 01-01 [facility] ([id number]) Comment: Performed By: #### CMP ####C [facility] [place], [place] [phone] cnpn on 2019-12-01 CNPN Telephone (FAMPWS) Normal 12-01-2019 [place] [facility] JOSE ASIF ([id number]) 1960 [facility] Date Time Provider Department ([id number]) 12/01/19 JERRY LAMA) KAYA During your visit today, we recorded the following informati on about you: Jerry Lama APRN.CNP 12/01/2019 12:28 PM Signed Please notify patient that his echocardiogram of his heart looks very good. LUCIANO Marshall MA 12/01/2019 12:58 PM Signed Spoke to pt and advised of shantel saldana, pt verbalizes understanding. He would like to know what the next step is/what provider recommends. Please advise, thank you. Stephania Chu MA Allergies As of Date: 12/01/2019 Noted Allergy Reaction SULFA (SULFONAMIDE ANTIBIOTICS) 07/20/2005 Date Reviewed: 11/29/2019 Reviewed by: Jerry Harmon) Teresa - Fully Assessed Reason for Visit: Results [95] Prescriptions as of 12/01/2019 Sig: PERFLUTREN LIPID MICROSPHERES* Inject 1.3 mL intravenously a * LORAZEPAM 0.5 MG TABLET Take 1 tablet by mouth twice * Problem List As Of Date 12/01/2019 Noted Resolved ABDOMINAL PAIN LUQ [R10.12] Hypertension [I10] 11/25/2013 Blood in stool [K92.1] Encounter Status:Closed by JERRY LAMA on 12/21/19 progress on 2019-11 PROGRESS HNO ID: [id number] Normal 11-29-2019 [facility] Author: Jerry (Kathya) Teresa [place] Service: ? ([id number]) Author Type: Nurse Practitioner Type: Progress Notes Filed: 11/29/2019 8:44 AM Note Text: Chief Complaint Patient presents with: Follow Up: F/u on cholecystectomy surgery; some questions on labs; In lieu of an in person visit due to coronavirus COVID 19 pa ndemic concerns, a telephone visit was performed with patient. Minerva ent is aware that I am not fully able to assess symptoms and do a full ph ysical exam including vital signs in office at this time. Patient consen ts to the visit. This Team Access Model visit is a phone encounter. It requir ed patient-provider interaction for the medical decision making as documented below. Patient was offered a virtual/telemedicine appointmen t in lieu of an office visit due to recommendations to reduce patient exp osure to COVID-19. No video was used for evaluation of this patient. 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 His gallb ladder was adhered to his liver, so that made it a little bit more diff icult to remove. Was pretty painful the first couple days, but has be en improving since. He only took a couple doses of the Percocet because h e felt like his pulse was dropping so low from it. He only required a fe w Advil here and there for the pain, and he feels like things are healing up well. He has an appointment tomorrow for a follow up with his surgeon , Dr. Sanchez. The feeling of needing to take the deep breath. He feels courtney t his endurance was building up prior to the surgery, but that he took some steps backward with his endurance by having the surgery and is now having decreased endurance and feeling that shortness of breath/fat igue feeling after about 10 minutes of walking. Past medical history, appointments, medications, allergies r eviewed 11/29/2019 Previous Medical History PAST MEDICAL HISTORY Diagnosis Date - Abdominal pain, left upper quadrant - Allergic rhinitis, cause unspecified - Arrhythmia - Blood in stool - Hernia of unspecified site of abdominal cavity without men tion of obstruction or gangrene umbilical - High cholesterol - Snoring - Umbilical hernia without mention of obstruction or gangren e - Unspecified essential hypertension borderline Previous Surgical History PAST SURGICAL HISTORY Procedure Laterality Date - CHOLECYSTECTOMY 11/20/2019 Dr. Sanchez - COLONOSCOP W/ OR W/O [facility] SPEC 12/16/15 Colonoscopy - COLONOSCOPY 2002 - REMOVAL OF TONSILS,12+ Y/O age 19 - REPAIR UMBILICAL KAYLA,5+Y/O,REDUC 10/25/2009 - UNSPECIFIED ORAL SURGERY PROCEDURE, BY REPORT one wisdom tooth removed Family History FAMILY HISTORY Problem Relation Age of Onset - Diabetes Mother - Hypertension Mother - Lipids Mother - Diabetes Maternal Grandmother Patient Allergies ALLERGIES Allergen Reactions - Sulfa (Sulfonamide * Current Medications Current Outpatient Medications on File Prior to Visit Medication Sig - LORazepam (ATIVAN) 0.5 mg Take 1 tablet by mouth twice nilo ly as needed (anxiety) for up to 30 days. - triamterene-hydrochlorothiazide 37.5-25 mg per capsule Hugo e 1 capsule by mouth once daily. - KRILL OIL ORAL Take by mouth once daily. - Naproxen Sodium (ALEVE) 220 mg ORAL Tab Take one(1) tablet twice daily.as necessary No current facility-administered medications on file prior t o visit. Social History Social History Tobacco Use - Smoking status: Never Smoker - Smokeless tobacco: Former User - Tobacco comment: used for 20-30 years, quit about 13 years ago Substance Use Topics - Alcohol use: Yes Frequency: Monthly or less Drinks per session: 1 or 2 Binge frequency: Less than monthly Comment: occasionally/socially - Drug use: No Review of Symptoms GENERAL: Positive forfatigue. No fevers. HEENT: Negative for headaches Nose NEG for congestion and nasal discharge NECK: Negative for pain or swelling. No lumps RESPIRATORY: No wheezing, difficulty breathing. No cough. SO B with prolonged exertion CARDIOVASCULAR: Negative for chest pain GI: No nausea, vomiting, or diarrhea MUSCULOSKELETAL: Negative for bodyaches SKIN: Negative for rash or itching Neuro: No lightheadedness or dizziness EXAM: There were no vitals taken for this visit. Deferred/limited physical exam as visit was completed over t [employer] phone platform. Health Maintenance List HIV SCREENING due on 1980 BP CONTROLLED (<130/80) due on 1980 DTAP,TDAP,TD(1 - Tdap) due on 1981 LIPID SCREEN due on 1997 HEPATITIS C SCREENING due on 2006 SHINGRIX VACCINE(1 of 2) due on 2012 PROSTATE CANCER SCREENING DISCUSSION due on 2017 ANNUAL PCP TEAM CHRONIC DISEASE VISIT due on 11/01/2020 DIABETES SCREEN due on 10/23/2022 COLORECTAL CANCER SCREENING,SEE MODIFIER due on 12/16/2025 INFLUENZA Completed Data reviewed Last 5 Encounter BP Readings: Date: BP: 03/21/2017 122/82 02/10/2016 121/84 11/22/2015 126/76 11/21/2015 132/80 08/20/2014 132/80 BMI Readings from Last 5 Encounters: 03/21/17 : 33.25 kg/m? 02/10/16 : 32.98 kg/m? 12/16/15 : 33.16 kg/m? 11/21/15 : 33.17 kg/m? Last 5 Encounter Wt Readings: Date: Wt: 03/21/2017 114.3 kg (252 lb) 02/10/2016 113.4 kg (250 lb) 11/22/2015 114 kg (251 lb 5.2 oz) 11/21/2015 114 kg (251 lb 6.4 oz) 08/20/2014 113.4 kg (250 lb) Medication and allergy list reviewed, reconciled and updated 11/29/2019 Total appointment time on phone with patient = 11-20 minutes ASSESSMENT/PLAN: 1. SOB (shortness of breath) - ICD9: 786.05, ICD10: R06.02 ( primary diagnosis) Recent treadmill stress test was WNL. Patient is continuing to get fatigued and SOB, with some chest tightness after 10 minutes of walking. Will obtain echo as well. He will be going back to work next week. Also will need to continue closely following his K+ level, as it has been decreased in the past. However, he has not been been taking blood pressure medication for the past couple months and his blood pressures have been 130's over 80's. - ECHO - PERFLUTREN LIPID MICROSPHERES 1.1 MG/ML INTRAVENOUS SUSPEN STUART 2. Fatigue, unspecified type - ICD9: 780.79, ICD10: R53.83 See #1. - ECHO - PERFLUTREN LIPID MICROSPHERES 1.1 MG/ML INTRAVENOUS SUSPEN STUART 3. Chest tightness - ICD9: 786.59, ICD10: R07.89 See #1, - ECHO - PERFLUTREN LIPID MICROSPHERES 1.1 MG/ML INTRAVENOUS SUSPEN STUART Jerry Lama APRN.KATHYA welsh on 2019-11-22 CNPN Telephone (FAMWS) Normal 11-22-2019 [place] JOSE Rojas ([id number]) 1960 T[place] Date Time Provider Department ([id number]) 11/22/19 JERRY LAMA [facility] During your visit today, we recorded the following informati on about you: Estefany Whalen RN 11/22/2019 11:17 AM Signed Pt called, verified by name and birthdat e. Pt wanted to verify Upcoming apt on 11-29-2019. Appointment verified. Pt states he is working wit h his employer about extending short term disability 1 week longer an d will contact [facility] for records from gallbladder surgery Estefany Whalen RN Allergies As of Date: 11/22/2019 Noted Allergy Reaction SULFA (SULFONAMIDE ANTIBIOTICS) 07/20/2005 Date Reviewed: 11/09/2019 Reviewed by: Chiara (Anne-Marie) Anne-Marie Marino Reason for Visit: Patient Question [1067] Prescriptions as of 11/22/2019 Sig: LORAZEPAM 0.5 MG TABLET Take 1 tablet by mouth twice * TRIAMTERENE 37.5 MG-HYDROCHLO* Take 1 capsule by mouth once * KRILL OIL ORAL Take by mouth once daily. * ALEVE 220 MG TABLET Take one(1) tablet twice josé manuel* Problem List As Of Date 11/22/2019 Noted Resolved ABDOMINAL PAIN LUQ [R10.12] Hypertension [I10] 11/25/2013 Blood in stool [K92.1] Encounter Status:Closed by ESTEFANY WHALEN RN on 11/22/19 progress on 2019-11 PROGRESS HNO ID: [id number] Normal 11-14-2019 [facility] Author: Chiara (Dynadmic) Anne-Marie Marino [place] ([id number]) Service: ? Author Type: Carpet Layer Helper Type: Progress Notes Filed: 11/14/2019 9:46 AM Note Text: Radiology Service Progress Note DATE OF SERVICE: November 14, 2019 TIME: 9:46 AM PATIENT IDENTITY VERIFICATION COMPLETED USING TWO (2) [address] RD IDENTIFIERS: Name and Date of confirmed by patient shanna faustin. FALL SCREENING: Has the patient had 2 falls in the last year or 1 fall with injury or currently using an Ambulatory Assistive Devic e (Walker, Cane, Wheelchair, Crutches, etc.)? No PATIENT GENDER DATA: Male PATIENT RELEVANT IMPLANT DATA REVIEWED: Not Applicable ALLERGIES: Reviewed and unchanged CONTRAST ALLERGY: NO. EXAM: CT -CONTRAST INDUCED NEPHROPATHY RISK FACTORS: Not applicabl e CREATININE: Creatinine Date Value Ref Range Status 10/24/2019 0.86 0.73 - 1.22 mg/dL Final eGFR-All Other Races Date Value Ref Range Status 10/24/2019 >60 . Final Comment: eGFR (Estimated GFR) Units of measure: mL/min/1.73 meters sq uared eGFR is derived from the reexpressed MDRD Study equation usi ng the following parameters: serum creatinine, age, gender and race. The crea tinine assay has been calibrated to be traceable to IDMS. An eGFR <60 mL/min/1.73m2 for >3 months is consistent with c hronic kidney disease. Refer to KDOQI guidelines for clinical interpretati on. In patients with unstable renal function, e.g. those with ac librado kidney injury, the eGFR may not accurately reflect actual GFR. eGFR- Date Value Ref Range Status 10/24/2019 >60 Final P.O.C.T. RESULTS: POC done: Yes, See Lab Tab November 14, 2019 TREATMENT: N/A PERIPHERAL IV DATA: Ambulatory: A peripheral IV was started in the Left antecubital site with a Angio cath: 22 gauge. RADIOLOGY DEPARTMENT: CT; Exam(s) Completed: Abdomen/Pelvis SIGNATURE: Anne-Marie Dahl PATIENT NAME: Jose Asif DATE: November 14, 2019 TIME: 9:[address] abd/pel w ivcon on 2019-11-14 CT ABD/PEL W * * *Final Report* * * Normal [facility] IVCON DATE OF EXAM: Nov 14 2019 9:43AM [place] ([id number]) [facility] 0530 - CT ABD/PEL W IVCON / PROCEDURE REASON: Abdominal distension (gaseous) * * * * Physician Interpretation * * * * EXAMINATION: CT ABDOMEN AND PELVIS WITH IV CONTRAST HISTORY: Clinical information: Abdominal distension (gaseous) Possible abscess in the liver noted on ultrasound TECHNIQUE: CT of the abdomen and pelvis was performed using standard technique, scanning from just above the dome of the diaphrag m to the symphysis pubis. MQ: CTAP_3 Contrast: IV: 150 ml of Omnipaque 300 Oral: 50 ml of 50ML Omnipaque [address] Radiation dose: Integrated Dose-length product (DLP) for this visit = 735 mGy*cm. CT Dose Reduction Employed: Automated exposure control(AEC) and iterative recon COMPARISON: Ultrasound RIGHT upper quadrant 11/07/2019 RESULT: Liver: There are 3 lesions which probably represent hemangiomas: * There is a 2.9 cm low-density lesion with peripheral enhan cement in the lateral segment LEFT lobe of the liver image 37 and brooke esponding to the lesion in question on previous ultrasound. * There is also a 1.5 cm homogeneously hyperattenuating lesi on in the medial segment LEFT lobe of the liver image 26. * There is a 1.5 cm low-density lesion with peripheral enhan cement in the posterior segment RIGHT lobe of the liver image 58. Several small low-density lesions are seen scattered through out the liver Biliary: No bile duct dilation. Multiple gallstones are note d Spleen: No mass. No splenomegaly. Pancreas: No mass or duct dilation. Adrenals: No mass. Kidneys: Kidneys are unremarkable. GI tract: There appears to be hypervascularity surrounding t he colon throughout the region of the transverse descending and sigmo id regions. This also question some thickening of the colonic wall in th e region of the ascending colon. Although the thickening could be due to contraction of the colon. Lymph nodes: No abdominal or pelvic lymphadenopathy. Mesentery/Peritoneum: No ascites or mass. Retroperitoneum: No mass. Vasculature: The celiac axis and SMA are patent. The portal vein and branches, splenic vein, SMV, and hepatic veins are patent. Pelvis: No mass, ascites or fluid collection. Bones/Soft Tissues: No acute changes Lower thorax: Lungs are clear IMPRESSION: 1. There are multiple enhancing lesions in the liver probabl y representing hemangiomas. One in the lateral segment LEFT lo be appears to correspond to the complex lesion noted on previous ultras ound 2. There are also are several smaller indeterminate low-dens ity lesions scattered throughout the liver. 3. The colon appears to show some thickening of the wall as well as some hypervascularity along the pole margins of the colon. This c ould represent colitis 4. Cholelithiasis Grain Manager: PSCB Transcribe Date/Time: Nov 14 2019 9:50A Dictated by : KAELA MALHOTRA DO This examination was interpreted and the report reviewed and electronically signed by: KAELA MALHOTRA DO on Nov 14 2019 10:26AM EST [id number] [facility] 2019[facility] CNPN Telephone (FAMPWS) Normal 11-14-2019 [place] JOSE Rojas ([id number]) 1960 N[place] JEFF [place] Date Time Provider Department ([id number]) 11/14/19 JERRY LAMA ([facility]) FAMPWS During your visit today, we recorded the following informati on about you: Jerry Lama APRN.CNP 11/14/2019 3:21 PM Signed Please notify patient that his CT of his abdomen again revealed gallstones, as well as a few liver lesions that are considered likely benign. Please inform him that we will send this information on to Dr. Sanchez and to expect a call from their office to schedule an appointment. I ordered a stress test at the same time as the CT, and does not look like it has been even scheduled yet. Please look into this. In addition, please send official consult as well as p fortunato's recent visits with myself, CT of chest, CT of abdomen, and ult rasound of his abdomen to Dr. Sanchez. I spoke with him about a week ago, and he is now fa miliar with, willing, and agreeable to see patient. Thanks, Jerry Lama APRN.KATHYA Jang LPN 11/14/2019 3:33 PM Signed TC to pt, notified of provider instructions. He verbalized understanding. All information faxed to Dr. Sanchez's office. Pt st ates stress test is scheduled for 11/15 at [facility]. Carla Lama APRN.KATHYA 11/14/2019 3:39 PM Signed Great, thank you. Jerry Lama APRN.CNP Allergies As of Date: 11/14/2019 Noted Allergy Reaction SULFA (SULFONAMIDE ANTIBIOTICS) 07/20/2005 Date Reviewed: 11/09/2019 Reviewed by: Chiara Valiente) Anne-Marie Marino - Anna wright Reason for Visit: Results [95] Primary Visit Diagnosis:Calculus of gallbladder without cholecystitis without obstruction [K80.20] Order(s):CONSULT TO GENERAL SURGERY [9011] Order #: [id number]: 1 FUTURE Prescriptions as of 11/14/2019 Sig: LORAZEPAM 0.5 MG TABLET Take 1 tablet by mouth twice * TRIAMTERENE 37.5 MG-HYDROCHLO* Take 1 capsule by mouth once * KRILL OIL ORAL Take by mouth once daily. * ALEVE 220 MG TABLET Take one(1) tablet twice josé manuel* Problem List As Of Date 11/14/2019 Noted Resolved ABDOMINAL PAIN LUQ [R10.12] Hypertension [I10] 11/25/2013 Blood in stool [K92.1] Encounter Status:Closed by CARLA JANG LPN on 11/14/19 us abd spleen -nb o n 2019-11-07 US ABD SPLEEN * * *Final Report* * * Normal [facility] - DATE OF EXAM: Nov 07 2019 11:33AM [place] ([id number]) [facility] 1232 - US ABD SPLEEN -NB / PROCEDURE REASON: multiple diagnoses * * * * Physician Interpretation * * * * EXAMINATION: RIGHT UPPER QUADRANT and splenic ULTRASOUND CLINICAL HISTORY: Right upper quadrant pain TECHNIQUE: Sonography of the right upper quadrant was perfor med. Images were obtained and stored in a permanent archive. MQ: URUQ_2 COMPARISON: CT chest dated 10/24/2019 RESULT: Pancreas: Normal sonographic appearance. Portions obscured: Portions of the head, distal body and kati l are suboptimally seen due to overlying bowel gas. Liver: Echotexture: Normal, homogeneous. Echogenicity: Normal Surface contour: Smooth Lesions: Several hepatic cysts are seen measuring at or near 1 to 1.5 cm. Complex lesion in the left hepatic lobe 2.9 x 1.9 x 3.7 cm. This appears to have sharp wall and posterior enhancement. It is filled w ith thick dense echoes, however. No vascularity within it. Biliary: No intrahepatic biliary duct dilation. CBD: 0.3 cm at the hilum. Gallbladder: Multiple gallstones. The largest is approximate ly 0.8 cm. No wall thickening or pericholecystic fluid. Right and left kidney: Right kidney measures 12.1 and the le ft 13 cm in length. No hydronephrosis or solid mass. Ascites: None. The spleen is 12.3 cm in length. No focal abnormality within it. IMPRESSION: Several hepatic cysts. This includes complex nonvascular les ion in the left hepatic lobe as described above. Possibly complex cyst filled with dense material. Diagnostic considerations would include absc ess, in the correct clinical setting. Further evaluation with CT and/or MRI recommended. Gallstones. No common duct dilatation, gallbladder distentio n or pericholecystic fluid. The spleen appears normal. The exam was limited technically by patient inability to raf erate optimal positioning and breath holding for the study Grain Manager: OSMAN Transcribe Date/Time: Nov 07 2019 11:34A Dictated by : SANDI GARCIA MD This examination was interpreted and the report reviewed and electronically signed by: SANDI GARCIA MD on Nov 07 2019 11:41AM EST [id number] us abd right upper quadrant on 2019-11-07 US ABD RIGHT * * *Final Report* * * Normal 04- [facility] UPPER QUADRANT DATE OF EXAM: Nov 07 2019 11:33AM [place] ([id number]) WRU 1032 - US ABD RIGHT UPPER QUADRANT / 10 PROCEDURE REASON: multiple diagnoses * * * * Physician Interpretation * * * * EXAMINATION: RIGHT UPPER QUADRANT and splenic ULTRASOUND CLINICAL HISTORY: Right upper quadrant pain TECHNIQUE: Sonography of the right upper quadrant was perfor med. Images were obtained and stored in a permanent archive. MQ: URUQ_2 COMPARISON: CT chest dated 10/24/2019 RESULT: Pancreas: Normal sonographic appearance. Portions obscured: Portions of the head, distal body and kati l are suboptimally seen due to overlying bowel gas. Liver: Echotexture: Normal, homogeneous. Echogenicity: Normal Surface contour: Smooth Lesions: Several hepatic cysts are seen measuring at or near 1 to 1.5 cm. Complex lesion in the left hepatic lobe 2.9 x 1.9 x 3.7 cm. This appears to have sharp wall and posterior enhancement. It is filled w ith thick dense echoes, however. No vascularity within it. Biliary: No intrahepatic biliary duct dilation. CBD: 0.3 cm at the hilum. Gallbladder: Multiple gallstones. The largest is approximate ly 0.8 cm. No wall thickening or pericholecystic fluid. Right and left kidney: Right kidney measures 12.1 and the le ft 13 cm in length. No hydronephrosis or solid mass. Ascites: None. The spleen is 12.3 cm in length. No focal abnormality within it. IMPRESSION: Several hepatic cysts. This includes complex nonvascular les ion in the left hepatic lobe as described above. Possibly complex cyst filled with dense material. Diagnostic considerations would include absc ess, in the correct clinical setting. Further evaluation with CT and/or MRI recommended. Gallstones. No common duct dilatation, gallbladder distentio n or pericholecystic fluid. The spleen appears normal. The exam was limited technically by patient inability to raf erate optimal positioning and breath holding for the study Grain Manager: OSMAN Transcribe Date/Time: Nov 07 2019 11:34A Dictated by : SANDI GARCIA MD This examination was interpreted and the report reviewed and electronically signed by: SANDI GARCIA MD on Nov 07 2019 11:41AM EST [id number] progress on 2019-10 PROGRESS HNO ID: [id number] Normal 11-07-2019 [facility] Author: Anne-Marie Rao (Tech) [place] ([id number]) Service: ? Author Type: Carpet Layer Helper Type: Progress Notes Filed: 11/07/2019 11:34 AM Note Text: Radiology Service Progress Note PATIENT NAME: Jose Asif DATE OF SERVICE: November 07, 2019 TIME: 11:33 AM PATIENT IDENTITY VERIFICATION COMPLETED USING TWO (2) IDENTI FIERS: Name and Date of confirmed by patient verbally. FALL SCREENING: Has the patient had 2 falls in the last year or 1 fall with injury or currently using an Ambulatory Assistive Devic e (Walker, Cane, Wheelchair, Crutches, etc.)? No PATIENT GENDER DATA: Male PATIENT RELEVANT IMPLANT DATA REVIEWED: Not Applicable RADIOLOGY DEPARTMENT: Ultrasound PERIPHERAL IV DATA: Not applicable SIGNED BY: Anne-Marie Rao November 07, 2019 11:33 AM cnpn on 2019-11-07 KATHYAN Telephone (FAMPWS) Normal 11-07-2019 [place] [facility] JOSE ASIF ([id number]) 1960 [facility]ly [facility] Date Time Provider Department () 11/07/19 JERRY LAMA ([facility]) FAMPWS During your visit today, we recorded the following informati on about you: Estefany Whalen RN 11/07/2019 8:37 AM Signed Pt called, verified by name and birthdate. Pt states h e is having ultrasound today for his gallbladder. Pt states he has decided he wan ts to have stress test at [facility] so he has not scheduled it. Faxed order to [facility] and advised pt he will need to contact them to schedule. Pt verbalized understanding. Pt wants to know if he should have his short term disability extended. Anabela bal states it currently is thru 11-12-2019 and he is concerned about returni ng to work 11-13-2019. Please advise Estefany Lama APRN.KATHYA 11/07/2019 10:28 AM Signed If he is still feeling weak and having significant shortness of breath, I would recommend extending it if possible. Jerry Lama APRN.KATHYA Schwartz LPN, FRANCISCO 11/07/2019 10:55 AM Signed Spoke with pt gave information provided. Allergies As of Date: 11/07/2019 Noted Allergy Reaction SULFA (SULFONAMIDE ANTIBIOTICS) 07/20/2005 Date Reviewed: 11/02/2019 Reviewed by: Jerry Harmon) Teresa - Fully Assessed Reason for Visit: Question [1327] Prescriptions as of 11/07/2019 Sig: LORAZEPAM 0.5 MG TABLET Take 1 tablet by mouth twice * TRIAMTERENE 37.5 MG-HYDROCHLO* Take 1 capsule by mouth once * KRILL OIL ORAL Take by mouth once daily. * ALEVE 220 MG TABLET Take one(1) tablet twice josé manuel* Problem List As Of Date 11/07/2019 Noted Resolved ABDOMINAL PAIN LUQ [R10.12] Hypertension [I10] 11/25/2013 Blood in stool [K92.1] Encounter Status:Closed by ANNE SCHWARTZ LPN on 11/07/19 KAVON Telephone (FAMPWS) Normal 11-07-2019 [place] JOSE Rojas ([id number]) 1960 [place] Date Time Provider Department ([id number]) 11/07/19 JERRY LAMA (KATHYA) KAYA During your visit today, we recorded the following informati on about you: Jerry Lama APRN.CNP 11/07/2019 12:14 PM Signed Please inform patient that his ultrasound did sh ow multiple gallstones in his gallbladder, as well as some lesions wit hin his liver. The radiologist as well as Dr. Sanchez have recommended we proceed with a CT s can of his abdomen for further assessment. Please assist him to schedule this appointment. LUCIANO Marshall LPN 11/07/2019 1:38 PM Signed Message left to return call. Carri Jang LPN 11/09/2019 9:57 AM Signed TC to pt, notified of provider instructions. He verbalized u nderstanding. Carla Jang LPN Allergies As of Date: 11/07/2019 Noted Allergy Reaction SULFA (SULFONAMIDE ANTIBIOTICS) 07/20/2005 Date Reviewed: 11/02/2019 Reviewed by: Jerry Harmon) Teresa - Fully Assessed Reason for Visit: Results [95] Visit Diagnosis:Abdominal distension (gaseous) [R14.0] Order(s):CT ABD/PEL W IVCON [[id number]] Order #: [id number] FU TURE [] iv contrast (will be provided with radiology test) CT ABD/PEL -Inject, intravenously, once for 1 dose.No IV access , insert saline lock prior to the beginning of sedation, infusion, in jection of imaging exam. Discontinue saline lock post exam. If Pt. has a central line or IVAD, may access for administration according to elaine e specific nursing protocol. Once exam is complete flush line and de-ac cess according to line specific nursing protocol in the CT contra st administration guidelines link.Disp: 1 EachRfl: 0 [] enteric contrast (will be provided with radiology test)For CT ABD/PEL W IVCON Routine order Administer, As Directed One Time Only, via Oral, Rectal, both Oral and Rectal, Enteric Tube, Stoma or Indwelling Catheter, Enteric Contrast as designated per ente jennyfer contrast guidelinesDisp: 1 EachRfl: 0 Prescriptions as of 11/07/2019 Sig: IV CONTRAST (RADIOLOGY PROCED* CT ABD/PEL -Inject, intraveno * ENTERIC CONTRAST (RADIOLOGY P* For CT ABD/PEL W IVCON Routin * LORAZEPAM 0.5 MG TABLET Take 1 tablet by mouth twice * TRIAMTERENE 37.5 MG-HYDROCHLO* Take 1 capsule by mouth once * KRILL OIL ORAL Take by mouth once daily. * ALEVE 220 MG TABLET Take one(1) tablet twice josé manuel* Problem List As Of Date 11/07/2019 Noted Resolved ABDOMINAL PAIN LUQ [R10.12] Hypertension [I10] 11/25/2013 Blood in stool [K92.1] Prescriptions ordered this encounter Disp Refills Start End IV CONTRAST (RADIOLOGY PROCEDURE) 1 Ea* 0 11/07/2019 020 Class: In Office Sig: CT ABD/PEL -Inject, intravenously, once for 1 dos e.No IV access, insert saline lock prior to the beginning of sedation, infusion, in jection of imaging exam. Discontinue saline lock post exam. If Pt. has a central line or IVAD, may access for administration according to elaine e specific nursing protocol. Once exam is complete flush line and de-ac cess according to line specific nursing protocol in the CT contra st administration guidelines link. ENTERIC CONTRAST (RADIOLOGY PROCEDUR* 1 Ea* 0 11/07/2019 Class: In Office Sig: For CT ABD/PEL W IVCON Routine order Administer, As Dir ected One Time Only, via Oral, Rectal, both Oral and Rectal, Enteric Tube, Stoma or Indwelling Catheter, Enteric Contrast as designated per ente jennyfer contrast guidelines Encounter Status:Closed by CARLA JANG LPN on 11/09/19 cnco on 2019-11-07 CNCO Letter Text Normal 11-07-2019 [facility] ([id number]) progress on 2019-10 PROGRESS HNO ID: [id number] Normal 11-02-2019 [facility] Author: Jerry Harmon) [facility] Service: ? ([id number]) Author Type: Nurse Practitioner Type: Progress Notes Filed: 11/07/2019 11:27 AM Note Text: Chief Complaint Patient presents with: Breathing Problem ruq pain In lieu of an in person visit due to coronavirus COVID 19 pa ndemic concerns, a virtual visit was performed with patient. Jaspal bal is aware that I am not fully able to assess symptoms and do a full ph ysical exam including vital signs in office at this time. Patient consen ts to the visit. This Team Access Model visit is a virtual encounter. It requ ired patient-provider interaction for the medical decision making as documented below. Patient was offered a virtual/telemedicine appointmen t in lieu of an office visit due to recommendations to reduce patient exp osure to COVID-19. HIPAA secured video was used for evaluation of this patient. 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 Reports: He does feel that he is slowly improving with his s hortness or breath and weakness, although they do still persist. He quit e frequently feels gassy and bloated, like he has gas up in his chest and between his shoulder blades. He has intermittent pain under his front an d lateral right rib cage that does come and go. His appetite has impro jorge a somewhat, but weight remains down. He is unable to state a certain rajni e that he feels that gas or bloating/pain, but thinks it may be after he is done eating. Past medical history, appointments, medications, allergies r eviewed 11/02/2019 Previous Medical History PAST MEDICAL HISTORY Diagnosis Date - Abdominal pain, left upper quadrant - Allergic rhinitis, cause unspecified - Arrhythmia - Blood in stool - Hernia of unspecified site of abdominal cavity without men tion of obstruction or gangrene umbilical - High cholesterol - Snoring - Umbilical hernia without mention of obstruction or gangren e - Unspecified essential hypertension borderline Previous Surgical History PAST SURGICAL HISTORY Procedure Laterality Date - COLONOSCOP W/ OR W/O [facility] SPEC 12/16/15 Colonoscopy - COLONOSCOPY 2002 - REMOVAL OF TONSILS,12+ Y/O age 19 - REPAIR UMBILICAL KAYLA,5+Y/O,REDUC 10/25/2009 - UNSPECIFIED ORAL SURGERY PROCEDURE, BY REPORT one wisdom tooth removed Family History FAMILY HISTORY Problem Relation Age of Onset - Diabetes Mother - Hypertension Mother - Lipids Mother - Diabetes Maternal Grandmother Patient Allergies ALLERGIES Allergen Reactions - Sulfa (Sulfonamide * Current Medications Current Outpatient Medications on File Prior to Visit Medication Sig - triamterene-hydrochlorothiazide 37.5-25 mg per capsule Hugo e 1 capsule by mouth once daily. - KRILL OIL ORAL Take by mouth once daily. - Naproxen Sodium (ALEVE) 220 mg ORAL Tab Take one(1) tablet twice daily.as necessary No current facility-administered medications on file prior t o visit. Social History Social History Tobacco Use - Smoking status: Never Smoker - Smokeless tobacco: Former User - Tobacco comment: used for 20-30 years, quit about 13 years ago Substance Use Topics - Alcohol use: Yes Frequency: Monthly or less Drinks per session: 1 or 2 Binge frequency: Less than monthly Comment: occasionally/socially - Drug use: No Review of Symptoms GENERAL: Positive for malaise and fatigue. No fevers. HEENT: Negative for headaches No eye discharge or redness No earaches No sore throat Nose NEG for congestion and nasal discharge NECK: Negative for pain or swelling. No lumps RESPIRATORY: No wheezing. Positive for SOB, difficulty breat aisha, worse with exertion. No cough CARDIOVASCULAR: Negative for chest pain, positive for chest tightness GI: No nausea, vomiting, or diarrhea. Positive for lack of a ppetite. Positive for bloating MUSCULOSKELETAL: Negative for bodyaches SKIN: Negative for rash or itching Neuro: No lightheadedness or dizziness EXAM: There were no vitals taken for this visit. Virtual visit completed using video, limited exam completed. General Appearance: Patient sounds or appears ill: No Skin: Skin color normal Head: Normocephalic Patient is not able to speak in complete sentences: Yes Patient has labored breathing: Yes. Patient is audibly coughing: No Psych: Attitude - cooperative, easily engaged in conversatio n Affect - Euthymic, normal mood Mental status: Alert. Speech is clear and fluent with good r epetition, comprehension Appearance - Normal hygiene and grooming appropriate Coordination: No abnormal or extraneous movements. Gait/Stance: Posture is normal. Abdomen: positive for Pace's sign as Health Maintenance List DTAP,TDAP,TD(1 - Tdap) due on 1973 HIV SCREENING due on 1980 BP CONTROLLED (<130/80) due on 1980 LIPID SCREEN due on 1997 HEPATITIS C SCREENING due on 2006 SHINGRIX VACCINE(1 of 2) due on 2012 PROSTATE CANCER SCREENING DISCUSSION due on 2017 INFLUENZA(Season Ended) due on 03/12/2020 ANNUAL PCP TEAM CHRONIC DISEASE VISIT due on 10/29/2020 DIABETES SCREEN due on 10/23/2022 COLORECTAL CANCER SCREENING,SEE MODIFIER due on 12/16/2025 Data reviewed Last 5 Encounter BP Readings: Date: BP: 03/21/2017 122/82 02/10/2016 121/84 11/22/2015 126/76 11/21/2015 132/80 08/20/2014 132/80 BMI Readings from Last 5 Encounters: 03/21/17 : 33.25 kg/m? 02/10/16 : 32.98 kg/m? 12/16/15 : 33.16 kg/m? 11/21/15 : 33.17 kg/m? Last 5 Encounter Wt Readings: Date: Wt: 03/21/2017 114.3 kg (252 lb) 02/10/2016 113.4 kg (250 lb) 11/22/2015 114 kg (251 lb 5.2 oz) 11/21/2015 114 kg (251 lb 6.4 oz) 08/20/2014 113.4 kg (250 lb) Medication and allergy list reviewed, reconciled and updated 11/02/2019 Total appointment time on virtual with patient = 21-30 minut es ASSESSMENT/PLAN: 1. Situational anxiety - ICD9: 300.09, ICD10: F41.8 (primary diagnosis) Patient agrees that he is suffering from some anxiety. He wi ll utilize lorazepam as needed for this situations. - LORAZEPAM 0.5 MG TABLET 2. SOB (shortness of breath) - ICD9: 786.05, ICD10: R06.02 Will obtain stress test. - EXERCISE STRESS WO IMAGING - US ABD RT UPPER QUADRANT 3. Chest tightness - ICD9: 786.59, ICD10: R07.89 Will obtain stress test as well as ultrasound of RUQ. - EXERCISE STRESS WO IMAGING - US ABD RT UPPER QUADRANT 4. Calculus of gallbladder without cholecystitis without obs truction - ICD9: 574.20, ICD10: K80.20 [address] did speak [address] Sanchez in general surgery, who was spe cifically requested by patient. Dr. Sanchez would like patient to have a stress test as well as ultrasound of RUQ performed prior to their a ppointment. He does feel that patient likely will need to have his gallb ladder removed. If after ultrasound of the gallbladder, a CT is rec ommended, Dr. Sanchez would like this to be with both IV and PO contrast. - US ABD RT UPPER QUADRANT LUCIANO Marshall on 2019-11-02 [facility] Telephone (FAMPWS) Normal 11-02-2019 [facility] JOSE ASIF ([id number]) 1960 Nannette JEFF [place] Date Time Provider Department ([id number]) 11/02/19 JERRY LAMA (KATHYA) FAMVANIA During your visit today, we recorded the following informati on about you: Jerry Lama APRN.CNP 11/02/2019 1:15 PM Signed Please notify patient that I did speak with Dr. Sanchez, and he does suspect he will require having his gallbladder removed. However, he wou ld like us to obtain an ultrasound of his gallbladder first, as well as have a stress test performed. Please assist patient to schedule these as soon a s possible, as patient is painful, fatigued, and SOB. LUCIANO Marshall Ma 11/02/2019 1:25 PM Signed Pt notified. Transferred to ticket scheduler to set up ultrasound and stress test. Jennifer Murray Ma Allergies As of Date: 11/02/2019 Noted Allergy Reaction SULFA (SULFONAMIDE ANTIBIOTICS) 07/20/2005 Date Reviewed: 11/02/2019 Reviewed by: Jerry Harmon) Teresa - Fully Assessed Reason for Visit: schedule tests [Other] Prescriptions as of 11/02/2019 Sig: LORAZEPAM 0.5 MG TABLET Take 1 tablet by mouth twice * TRIAMTERENE 37.5 MG-HYDROCHLO* Take 1 capsule by mouth once * KRILL OIL ORAL Take by mouth once daily. * ALEVE 220 MG TABLET Take one(1) tablet twice josé manuel* Problem List As Of Date 11/02/2019 Noted Resolved ABDOMINAL PAIN LUQ [R10.12] Hypertension [I10] 11/25/2013 Blood in stool [K92.1] Encounter Status:Closed by JENNIFER MURRAY MA on 11/02/19 progress on 2019-10 PROGRESS HNO ID: [id number] Normal 10-30-2019 [facility] Author: Jerry Harmon) [facility] Service: ? ([id number]) Author Type: Nurse Practitioner Type: Progress Notes Filed: 10/30/2019 9:12 AM Note Text: Chief Complaint Patient presents with: lump in throat In lieu of an in person visit due to coronavirus COVID 19 pa ndemic concerns, a telephone visit was performed with patient. Minerva ent is aware that I am not fully able to assess symptoms and do a full ph ysical exam including vital signs in office at this time. Patient consen ts to the visit. This Team Access Model visit is a phone encounter. It requir ed patient-provider interaction for the medical decision making as documented below. Patient was offered a virtual/telemedicine appointmen t in lieu of an office visit due to recommendations to reduce patient exp osure to COVID-19. No video was used for evaluation of this patient. Patient agrees to the visit: Yes Patient Location: [facility] Jose Asif is a 59 year old male who is contacted today f or a phone visit This is an established patient of Nannette Bill. Reports: As far as cough and SOB, he feels it may be improvi ng a bit. He has been able to sleep in bed the past 4 nights, which is an improvement. He tried to go outside and walk yesterday for about 10 minut es, and he was exhausted. Very short of breath. States he has no stamina. He has noticed when he eats milk or dairy, it seems to make his symptoms of thickening in the back of his throat worse. Starting 2 days ago, he feels that he has been having diffic ulty swallowing. Having trouble getting his pills down. He took a Benadryl, which knocked him out for 6 hours, but he feels it may have helped the feeling of a lump in his throat down a little. Yesterday did not notice much chest tightness, but around be dtime he started with chest tightness and feeling short of breath, wh ich continued through the night. This morning he does feel some chest tigh tness and shortness of breath. Questioning some gurgling noises in his upper chest that he states his can even hear, especially when he is laying down. States feels like his abdomen is a bit gassy and feels this may be related to gas in his upper chest as well. Has been having some inte rmittent sharp and aching pains just under his right lower ribs, as w ambika. These come and go; has not noticed anything that causes them or ma kes them feel any better. He has about 2 weeks of short term disability left. Believes he can extend it out 3 more weeks if necessary. Has PFTs scheduled for tomorrow (10/30) and an appointment with Dr. Wells, ENT on Wednesday (10/31). Past medical history, appointments, medications, allergies r eviewed 10/30/2019 Previous Medical History PAST MEDICAL HISTORY Diagnosis Date - Abdominal pain, left upper quadrant - Allergic rhinitis, cause unspecified - Arrhythmia - Blood in stool - Hernia of unspecified site of abdominal cavity without men tion of obstruction or gangrene umbilical - High cholesterol - Snoring - Umbilical hernia without mention of obstruction or gangren e - Unspecified essential hypertension borderline Previous Surgical History PAST SURGICAL HISTORY Procedure Laterality Date - COLONOSCOP W/ OR W/O [facility] SPEC 12/16/15 Colonoscopy - COLONOSCOPY 2002 - REMOVAL OF TONSILS,12+ Y/O age 19 - REPAIR UMBILICAL KAYLA,5+Y/O,REDUC 10/25/2009 - UNSPECIFIED ORAL SURGERY PROCEDURE, BY REPORT one wisdom tooth removed Family History FAMILY HISTORY Problem Relation Age of Onset - Diabetes Mother - Hypertension Mother - Lipids Mother - Diabetes Maternal Grandmother Patient Allergies ALLERGIES Allergen Reactions - Sulfa (Sulfonamide * Current Medications Current Outpatient Medications on File Prior to Visit Medication Sig - triamterene-hydrochlorothiazide 37.5-25 mg per capsule Hugo e 1 capsule by mouth once daily. - KRILL OIL ORAL Take by mouth once daily. - lansoprazole(PREVACID 30 MG CAP) Take one(1) capsule daily . (Patient taking differently: as needed) - Naproxen Sodium (ALEVE) 220 mg ORAL Tab Take one(1) tablet twice daily.as necessary No current facility-administered medications on file prior t o visit. Social History Social History Tobacco Use - Smoking status: Never Smoker - Smokeless tobacco: Former User - Tobacco comment: used for 20-30 years, quit about 13 years ago Substance Use Topics - Alcohol use: Yes Comment: occasionally/socially - Drug use: No Review of Symptoms GENERAL: Positive for malaise and fatigue. No fevers. HEENT: Negative for headaches No eye discharge or redness No earaches No sore throat Nose NEG for congestion and nasal discharge NECK: Negative for pain or swelling. No lumps. Positive for a feeling of a lump or swelling in his throat intermittently; difficulty swallowing. RESPIRATORY: No wheezing. Continues with moderate dry nonpro ductive cough, SOB-worse with exertion, difficulty breathing. CARDIOVASCULAR: Negative for chest pain. Positive for chest tightness. GI: No nausea, vomiting, or diarrhea MUSCULOSKELETAL: Negative for bodyaches SKIN: Negative for rash or itching Neuro: No lightheadedness or dizziness EXAM: There were no vitals taken for this visit. Deferred physical exam as visit was completed over the phone /Paystikhart. Health Maintenance List DTAP,TDAP,TD(1 - Tdap) due on 1973 HIV SCREENING due on 1980 BP CONTROLLED (<130/80) due on 1980 LIPID SCREEN due on 1997 HEPATITIS C SCREENING due on 2006 SHINGRIX VACCINE(1 of 2) due on 2012 PROSTATE CANCER SCREENING DISCUSSION due on 2017 INFLUENZA(Season Ended) due on 03/12/2020 ANNUAL PCP TEAM CHRONIC DISEASE VISIT due on 10/22/2020 DIABETES SCREEN due on 10/23/2022 COLORECTAL CANCER SCREENING,SEE MODIFIER due on 12/16/2025 Data reviewed Last 5 Encounter BP Readings: Date: BP: 03/21/2017 122/82 02/10/2016 121/84 11/22/2015 126/76 11/21/2015 132/80 08/20/2014 132/80 BMI Readings from Last 5 Encounters: 03/21/17 : 33.25 kg/m? 02/10/16 : 32.98 kg/m? 12/16/15 : 33.16 kg/m? 11/21/15 : 33.17 kg/m? Last 5 Encounter Wt Readings: Date: Wt: 03/21/2017 114.3 kg (252 lb) 02/10/2016 113.4 kg (250 lb) 11/22/2015 114 kg (251 lb 5.2 oz) 11/21/2015 114 kg (251 lb 6.4 oz) 08/20/2014 113.4 kg (250 lb) Medication and allergy list reviewed, reconciled and updated 10/30/2019 Total appointment time on phone with patient = 11-20 minutes ASSESSMENT/PLAN: 1. SOB (shortness of breath) - ICD9: 786.05, ICD10: R06.02 ( primary diagnosis) SOB, chest tightness, cough are slightly to moderately impro ving. SOB with exertion as well as weakness and fatigue remain. Lab wo rk, chest xray, chest CT do not reveal any acute reason for these symp toms. He does have PFTs scheduled tomorrow. Concern that he likely contrac trev COVID, but was not in a high risk category to be tested, hence the lingering shortness of breath, cough, significant weakness and fatigue . 2. Chest tightness - ICD9: 786.59, ICD10: R07.89 See #1. 3. Fatigue, unspecified type - ICD9: 780.79, ICD10: R53.83 See #1. 4. Generalized weakness - ICD9: 780.79, ICD10: R53.1 See #1. 5. Dysphagia, unspecified type - ICD9: 787.20, ICD10: R13.10 This is a new symptom, as of 2 days ago. Possibility that he may have some PND r/t change in the weather and possible allergy resp onse as well. Would recommend cetirizine/loratadine daily. He does already have an appointment scheduled with Dr. Wells, ENT, in 2 days. Depdeangelo campbell on results of Dr. Wells's assessment, may consider allergy sharda ting vs medications vs anxiety vs GERD. 6. Calculus of gallbladder without cholecystitis without obs truction - ICD9: 574.20, ICD10: K80.20 Patient is describing some gas/bloating symptoms as well as intermittent pain under his right rib cage. Concern that this could be ca used by his cholelithiasis. If this continues, will consider ultrasound and hida scan of his gallbladder to determine function. Jerry Lama APRN.SHEET METAL SUPERINTENDENT emergency report on 2019-10-30 [facility] Normal 10-30-2019 [facility] [place] [facility] [facility] EMERGENCY ROOM REPORT Hospital ([id number]) NAME ACCOUNT SEX AGE ADMIT DISCHARGE PT MED. RECORD# NUMBER DATE DATE TYPE JOSE ASIF [id number] Nannette 59 10/19/19 10/19/19 3 [id number] ROOM: ER DATE OF : 1960 DICTATING PHYSICIAN: Michael Kincaid CHIEF COMPLAINT: Shortness of breath with chest tightness an d dizziness. HISTORY OF PRESENT ILLNESS: This is the patient's third visit to the ED over the past couple of weeks for jennifer oing symptoms. 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 He has had chest x-rays that have been unr emarkable. A previous workup has been unr emarkable, but he says that he is getting increasing chest tightness, dizziness, weakne ss and fatigue. He saw Dr. Horton this morning who referred him to the ED for initial ev aluation. He is concerned because of his potential exposure to COVID in the hospitals. He has not had documented fever. He has minimal nausea, but no vomiting. PAST MEDICAL HISTORY: Hypertension, anxiety. PAST SURGICAL HISTORY: Hernia surgery. MEDICATIONS: Triamterene/hydrochlorothiazide for blood press ure. ALLERGIES: Sulfa. SOCIAL HISTORY: He does smoke cigars occasionall y. He does not drink alcohol. REVIEW OF SYSTEMS: He has lost 10-15 pounds over the last couple of weeks. No bleeding disorders. No under lying heart disease. No urinary symptoms. He was told that he has a low potassium earlier. PHYSICAL EXAMINATION: This i s a 59-year-old, mildly heavy-built male who is alert and appropriate. Patient haywood s not appear toxic or in acute distress. Skin is pink, warm and dry. HEENT: Eyes, ears, nose, mouth and throat are all within normal limits. Neck is supple without adeno jeff. Lungs are clear without crackles or wheezes. Cardiac exam, regular rhythm without ectopy, murmurs, gallops or rubs. Abdomen is mildly obese, but soft and n ontender. Moves all extremities appropriately. Good peripheral pulses and capill shreyas refill. VITAL SIGNS: Temperature 98.3, pulse 92, respirations 16, blood pressure 146/95. O2 saturation was 99 -100%. DIAGNOSTIC DATA: EKG showed normal sinus rhythm without acute abnormalities. I did get a number of blood tests. I did order a COVID swab on him. Page 1 of 2 JOSE ASIF Emergency Room Report JOSE ASIF : 1960 CBC returned showing WBC of 11,900 with 78% neutrophils. H &H 17.9 and 50.7. D-dimer was 177. Lactate 2.0. BNP 10. Chemistrie s: Sodium 132, potassium 3.2, CO2 21.2, BUN and creatinine 13 and 0.9. ABGs: pH 7.54, PCO2 22, PO2 99, bicarb 19. EMERGENCY DEPARTMENT COURSE AND TREATMENT: IV normal saline was placed. He was given 1 liter IV fluids. PLAN/DISPOSITION: The patient presents with a number o f symptoms but exam is unremarkable. He does appear to have fwhi-mb-ljtvwzya hyperventilation which is probably contributing to wilman e of his symptoms and most likely that is brought on by anxiety. He has mild hypokal emia and probably some degree of hypovolemia as well. I discussed with Dr. Sol levine d I discussed with the patient. I did give him a prescription for oral potassium to take a t a higher dose than what he was taking over the past several weeks. He is to push fluids. Follow up with Dr. Horton in the next 3-5 days. Return if symptoms worsen. Dictated By: Michael Kincaid MD 10/19/19 14:09 JOB #: [id number] Transcribed By: smith 10/20/19 12:14 Electronically signed by: MIQUEL Kincaid M.D. 10/30/19 07:10 Page 2 of 2 JOSE ASIF Emergency Room Report emergency report on 2019-10-28 EMERGENCY REPORT [facility] Normal 10-27 [facility] EMERGENCY ROOM REPORT ([id number]) NAME ACCOUNT SEX AGE ADMIT DISCHARGE PT MED. RECORD# NUMBER DATE DATE TYPE JOSE ASIF [id number] Nannette 59 10/08/19 10/08/19 3 [id number] ROOM: ER DATE OF : 1960 DICTATING PHYSICIAN: Jessica Reed CHIEF COMPLAINT: Shortness of breath. HISTORY OF PRESENT ILLNESS: The patient is a 59-year-old male with a history of sleep apnea who presents with shortness of breat h that has been progressively worsening over the past 4 da ys. He was seen in the ED 4 days ago at which time his flu swab was negative, his chest x-ray was negative, and he was diagnosed with a viral upper respiratory infection. Since that time, he has had very occasional coughing, no fever, just a constant feeli ng like he cannot breathe, especially at night when he wears his CPAP. He has not had any nausea, vomiting, malaise, but he has had a change in appetite in that he is not w anting to eat or drink much of anything for the past 3 days. 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 He is unaware of any recent sick contacts. PAST MEDICAL HISTORY: Hypertension. PAST SURGICAL HISTORY: Hernia repair. ALLERGIES: Sulfa. REVIEW OF SYSTEMS: Positive for shortness of breath, occasional cough. All other systems reviewed and are negative. PHYSICAL EXAMINATION: Vitals : Blood pressure 150/105, pulse 107, respirations 22, temperature 98.1, SpO2 95% o n room air. General: The patient is awake, alert, calm, and cooperative. Head: Normo cephalic and atraumatic. Eyes: Extraocular movements intact. Ears: Tympanic membr anes clear bilaterally. Oral mucous membranes are moist without erythema or exudates . Lungs are clear to auscultation bilaterally. The patient is tachypneic without retractio ns. Cardiac: Slight tachycardia, regular rhythm. Abdomen: Soft, nondistended, and nont ivan. Extremities: No deformities or edema. Skin: No rashes or lesions. Neurologi c: The patient is alert and oriented to person, place, and time. No neurological deficits. DIAGNOSTIC DATA: He does have a slight leukocytosis of 13.6. Chest x-ray, as interpreted by emergency physician, was unchanged from previous and shows no acute infiltrates. He did have a slight hyponat remia and hypokalemia of 2.9. He was given normal saline Page 1 of 2 JOSE ASIF Emergency Room Report JOSE ASIF : 1960 and 40 mEq of potassium by mouth. EMERGENCY DEPARTMENT COURSE AND TREATMENT: As the patient fe els like he has gotten worse in the p ast 4 days, a workup was done. A chest x-ray being clear did not fully explain his ta chypnea and tachycardia, so a bedside ultrasound was done and was concerning for a rig ht upper lobe pneumonia. I do suspect that this is the cause of his symptoms at this time . As he does not have fever or significant cough or bilateral infiltrates, he does not feliciano t criteria for novel coronavirus testing at this time. DIAGNOSES: 1. Pneumonia. 2. Hypokalemia. PLAN/DISPOSITION: This was a ll discussed with the patient, who felt comfortable being discharged home. He wa s not hypoxic or in any distress while in the emergency department. He was given dox ycycline and a prescription for potassium once daily for the next 7 days. He was inst ructed to follow up with his primary care physician and educated on when to return t o the emergency department. Disposition: Home in stable condition. Dictated By: Jessica Reed DO 10/08/19 19:14 JOB #: [id number] Transcribed By: am 10/08/19 19:52 Electronically signed by: E-Sign: Jessica Reed D.O. 10/28/19 10:30 Page 2 of 2 JOSE ASIF Emergency Room Report cnpn on 2019[facility]10-[facility]) Normal 10-25-2019 [facility] JOSE ASIF ([id number]) 1960 Nannette JEFF [place] Date Time Provider Department ([id number]) 10/25/19 JERRY LAMA ([facility]) JONELWS During your visit today, we recorded the following informati on about you: Estefany Whalen RN 10/25/2019 1:14 PM Signed Pt called, verified by name and birthdate. Pt wants results of CT and labs from yesterday. No notes seen in Epic. Please advise Estefany Lama APRN.KATHYA 10/25/2019 3:08 PM Signed I do have his results, and I would like to have Dr. Knapp look over them as well before giving him a call back. Jerry Lama APRN.KATHYA Lama APRN.CNP 10/25/2019 4:48 PM Signed Please notify patient that his CT of his chest looked good. No reasons noted for his SOB. His lab work was just a little bit off, as far as his electrolytes are concerned. This being said, it would not be causing SOB, and I would like for him to repeat these in a month. We need to do pulmonary function testing next. To make sure that his lungs and all associated structures are operating the way they s hould be. I would like him to have this testing performed in next day to , definitely by Wednesday. If [facility] is unable to perform this testing, I believe [facility] is still doing testing. Please assist him to schedule this. LUCIANO Marshall Ma 10/25/2019 5:03 PM Signed Please see message below. Help assist pt to schedule PFT's Pt notified of results Deidre English Pss 10/26/2019 1:59 PM Signed Patient called back and stated that the soonest he could get into [facility] for the Pulmonary Function Te sting would be October 30. If this is a problem, the patient would like to be abigail led back at [phone]. He scheduled the appointment incase that was angel oliver. Jerry Lama APRN.CNP 10/26/2019 2:13 PM Signed That is fine, if that is the soonest he can make it. Anabela zavaleta reiterate to him however, that if his breathi ng worsens, he should be seen in the emergency room. LUCIANO Marshall MA, MA 10/26/2019 2:29 PM Signed Patient informed of results, verbalized understanding. Roberta Thompson MA Allergies As of Date: 10/25/2019 Noted Allergy Reaction SULFA (SULFONAMIDE ANTIBIOTICS) 07/20/2005 Date Reviewed: 10/24/2019 Reviewed by: Chiara Valiente) Anne-Marie Marino - Anna wright Reason for Visit: Results [95] Primary Visit Diagnosis:SOB (shortness of breath) [R06.02] Other Visit Diagnoses:Chest tightness [R07.89] Fatigue, unspecified type [R53.83] Generalized weakness [R53.1] Order(s):SPIROMETRY - BASELINE AND POST DILATOR [0017340] Order #: [id number] FUTURE COMP METABOLIC PANEL [SQCMP] Order #: [id number] FUTURE URINE CYTOLOGY VOIDED [[id number]] Order #: [id number] Prescriptions as of 10/25/2019 Sig: TRIAMTERENE 37.5 MG-HYDROCHLO* Take 1 capsule by mouth once * KRILL OIL ORAL Take by mouth once daily. * PREVACID 30 MG CAPSULE,DELAYE* Take one(1) capsule daily. Patient taking differently: as needed * ALEVE 220 MG TABLET Take one(1) tablet twice josé manuel* Problem List As Of Date 10/25/2019 Noted Resolved ABDOMINAL PAIN LUQ [R10.12] Hypertension [I10] 11/25/2013 Blood in stool [K92.1] Encounter Status:Closed by ROBERTA THOMPSON on 10/26/19 troponin t on 10-23 Troponin T.cardiac <0.010 0.000-0.029 ug/L Normal 0 [facility] [Mass/Vol] [place] ([id number]) Comment: Performed By: #### CRP, MBE, NTBNP, JO, DDMER #### [facility] [address] [place], [place] [id number] tb by quantiferon o n 2019-10-24 Interpretation No evidence of current or Normal 10-24-2019 [facility] previous infection with [place] ([id number]) Mycobacterium tuberculosis. Comment: Performed By: #### INFTBP ## ##[facility] [address] [place], [place] [phone]- [phone] Mitogen minus Nil 3.92 Normal 10-24-2019 [facility] ([id number]) Comment: Performed By: #### INFTBP ## ##[facility] [address] [place], [place] [id number]- [phone] TB NIL 0.02 IU/mL Normal 10-24-2019 [facility] (28613) Comment: Performed By: #### INFTBP ## ##[place] [id number] [phone] TB Result Negative Negative Normal 10-24-2019 [facility] ([id number]) Comment: Performed By: #### INFTBP ## ##[place] [id number] [phone] TB1 Ag minus Nil 0.00 <0.35 IU/mL Normal 10-24-2019 [facility] (50870) Comment: Performed By: #### INFTBP ## ##[place] [id number] [phone] TB2 Ag minus Nil 0.01 <0.35 IU/mL Normal 10-24-2019 [facility] (79042) Comment: Performed By: #### INFTBP ## ##[place] [id number] [phone] progress on 2019-10 PROGRESS HNO ID: [id number] Normal 10-24-2019 [facility] Author: Anne-Marie Benavides (Tech) [place] ([id number]) Service: ? Author Type: Carpet Layer Helper Type: Progress Notes Filed: 10/24/2019 1:52 PM Note Text: Radiology Service Progress Note DATE OF SERVICE: October 24, 2019 TIME: 1:52 PM PATIENT IDENTITY VERIFICATION COMPLETED USING TWO (2) [address] RD IDENTIFIERS: Name and Date of confirmed by patient shanna faustin. PATIENT GENDER DATA: Male PATIENT RELEVANT IMPLANT DATA REVIEWED: Yes ALLERGIES: Reviewed and unchanged CONTRAST ALLERGY: NO. EXAM: CT -CONTRAST INDUCED NEPHROPATHY RISK FACTORS: Patient age > 60 years CREATININE: No results found for: CREAT, EGFROTH, EGFRAA P.O.C.T. RESULTS: POC done: Yes, See Lab Tab October 24, 2019 TREATMENT: N/A PERIPHERAL IV DATA: Ambulatory: A peripheral IV was started in the Left antecubital site with a Angio cath: 18 gauge. RADIOLOGY DEPARTMENT: CT; Exam(s) Completed: PE Study SIGNATURE: Anne-Marie Dahl PATIENT NAME: Jose Asif DATE: October 24, 2019 TIME: 1:52 PM nt pro bnp on 10-23 PRO B Natr Peptide <50 <125 Normal 10-24-2019 [facility] ([id number]) Comment: Performed By: #### CRP, MBE, NTBNP, JO, DDMER #### [facility] [address] [place], [place] [address] d dimer on D dimer 210 <500 ng/mL FEU Normal 10-24-2019 [facility] (50446) Comment: Result Comment: 500 ng/mL FE U is the D Dimer cutoff to exclude DVT (deep vein thrombosis) and PE (pulmonary embolism) in patients with a low pre test probability. Supplemental Comment: In pat ients over 50 years with a low pre test probability for DVT and/or PE, an age adjusted D dimer cutoff can be calculated as [age x 10] ng/mL FEU. For example, a patient of 88 years would have an age adju sted D dimer cutoff of 880 ng/mL FEU. For patients with a suspecte d DVT, a D dimer level below 500 ng/mL FEU has a negative predictive value of >98.9%, a sensitivity of >96.9% and a specificity of >35.7%. For patients with a suspecte d PE, a D dimer level below 500 ng/mL FEU has a negative predictive value of >98.5%, and a sensitivity of >96.5% and a specificity of >38.8%. Reference: Dl M, et al. FLO 2014 311:1117 and Van Miquel N, et al. Eva Int Med 2016 165:253. Performed By: #### CRP, MBE, NTBNP, JO, DDMER ####[facility] [address] [place], [place] [phone] ct chest w ivcon pe on 2019-10-24 CT CHEST W * * *Final Report* * * Normal 2019 [facility] IVCON PE DATE OF EXAM: Oct 24 2019 1:26PM [place] ([id number]) [facility] 0540 - CT CHEST W IVCON PE / PROCEDURE REASON: multiple diagnoses * * * * Physician Interpretation * * * * EXAMINATION: CHEST CT WITH CONTRAST (PULMONARY EMBOLISM PROT OCOL) CLINICAL HISTORY: SOB (shortness of breath). Chest tightness Technique: Spiral CT acquisition of the chest from the thora cic inlet to the upper abdomen following IV contrast. Axial 1 and 3 mm th ick slices plus coronal and sagittal reformatted images. MQ: CTCP_5 Contrast: 130 mL Omnipaque [address] Dose-Length Product: 574 mGy*cm CT Dose Reduction Employed: Automated exposure control(AEC) and iterative recon Comparison: No relevant prior studies available. RESULT: Limitations: None. Evaluation for thromboembolic disease: - Right heart chambers: No thromboembolic disease. - Main pulmonary arteries: No thromboembolic disease. - Lobar pulmonary arteries: No thromboembolic disease. - Segmental pulmonary arteries: No thromboembolic disease. - Subsegmental pulmonary arteries: No thromboembolic disease . - Additional pulmonary artery findings: The main pulmonary a rtery is normal in caliber. Lines, tubes, and devices: None. Lung parenchyma and airways: Solitary 0.3 cm nodule at the l eft lung base (7:279). No airspace consolidation or pulmonary edema. No en dobronchial lesion or bronchial occlusion. Linear subsegmental atelectas is/scarring within the right lower lobe and anterior right upper lobe. Pleural space: No pleural effusion. No pleural thickening. Lower neck, lymph nodes, and mediastinum: The imaged thyroid gland is normal. No lymphadenopathy in the supraclavicular, axillary, mediastinal, or hilar regions. Heart, pericardium, and thoracic vessels: The thoracic aorta is normal in caliber. The cardiac chambers are normal in size. No silas nary artery atherosclerotic calcifications are noted, although the study is not optimized for coronary assessment. No pericardial effusion o r thickening. Bones and soft tissues: No destructive bone lesion. Chest wa ll is unremarkable. Upper abdomen: Cholelithiasis. Multiple small hypodensities throughout the liver measuring approximately 0.5 cm or less to small to characterize. IMPRESSION: 1. No CT evidence of pulmonary embolism. 2. Lungs are essentially clear. 3. Cholelithiasis. Incidental Finding: No follow-up imaging for incidentally de tected solitary 0.3 cm nodule at the left lung base is recommended. If there are risk factors for lung malignancy, a follow-up chest CT exam could be obtained in 12 months. Note: No imaging follow-up is recommended for any of the fol lowing incidentally detected lesions: Liver lesions less than or eq ual to 0.5 cm, cystic kidney lesions less than 1.0 cm, or adrenal lesio ns less than or equal to 1.0 cm, in this adult patient (18 years or older ). ACR white paper: Managing Incidental Findings on Abdominal CT. JACR 20 10; 17:754 Grain Manager: OSMAN Transcribe Date/Time: Oct 24 2019 1:29P Dictated by : BLACK CHAVEZ MD This examination was interpreted and the report reviewed and electronically signed by: BLACK CHAVEZ MD on Oct 24 2019 1:42PM EST [id number] comp metabolic panel on 2019-10-24 Albumin [Mass/Vol] 4.2 3.9-4.9 g/dL Normal 10-24-2019 [facility] ([id number]) ALP [Catalytic 60 38-113 U/L Normal 10-24-2019 [facility] activity/Vol] [place] (14357) ALT [Catalytic 62 10-54 U/L High 10-24-2019 [facility] activity/Vol] [place] (86764) Anion gap 12 9-18 mmol/L Normal 10-24-2019 [facility] [Moles/Vol] [place] (69060) AST [Catalytic 26 14-40 U/L Normal 10-24-2019 [facility] activity/Vol] [place] (29825) Bilirubin [Mass/Vol] 0.6 0.2-1.3 mg/dL Normal 0 [facility] (46603) Calcium [Mass/Vol] 8.8 8.5-10.2 mg/dL Normal 10-24-2019 [facility] (84744) Chloride [Moles/Vol] 94 97-105 mmol/L Low 0 [facility] (28449) CO2 [Moles/Vol] 21 22-30 mmol/L Low 10-24-2019 [facility] (72189) Creatinine 0.86 0.73-1.22 mg/dL Normal 10-24-2019 [facility] [Mass/Vol] [place] (31720) eGFR- Amer. >60 Normal 10-24-2019 [facility] (04139) GFR/1.73 sq M >60 mL/min/{1.73_m Normal 10-24-2019 [facility] predicted among 2} [place] (62941) non-blacks MDRD (S/P/Bld) [Vol rate/Area] Comment: Result Comment: eGFR (Estima trev GFR) Units of measure: mL/min/1.73 meters squared eGFR is derived from the ree xpressed MDRD Study equation using the following parameters: serum creatinine, age, gender and race. The creatinine assay has been calibrated to be traceable to IDMS. An eGFR <60 mL/min/1.73m2 fo r >3 months is consistent with chronic kidney disease. Refer to KDOQI guidelines for clinical interpretation. In patients with unstable re nal function, e.g. those with acute kidney injury, the eGFR may not accurately reflect actual GFR. Glucose [Mass/Vol] 89 74-99 mg/dL Normal 10-24-2019 [facility] (73568) Comment: Result Comment: The [place] Diabetes Association (ADA) provides guidance for cutoff values for fasting glucose and random glucose. The ADA defines fasting as no caloric intake for at least 8 hours. Fas ting plasma glucose results between 100 to 125 mg/dL indicate increased risk for diabetes (prediabetes). Fasting plasma glucose resul ts greater than or equal to 126 mg/dL meet the criteria for diagnosis of diabetes. In the absence of unequivocal hyperglycemia, results should be confirmed by repeat testing. In a patient with classic s ymptoms of hyperglycemia or hyperglycemic crisis, random plasma glucose results greater than or equal to 200 mg/dL meet the criteria for diagnosis of diabetes. Reference: Standards of [facility] Care in Diabetes 2016, [place] Diabetes Association. Diabetes Care. 2016.39(Suppl 1). Potassium [Moles/Vol] 3.6 3.7-5.1 mmol/L Low 10-24-19 20 [facility] (60088) Protein [Mass/Vol] 6.9 6.3-8.0 g/dL Normal 10-24-2019 [facility] (74758) Sodium [Moles/Vol] 127 136-144 mmol/L Low 10-24-2019 [facility] (52487) Urea nitrogen [Mass/Vol] 8 9-24 mg/dL Low 10-23 [facility] (80910) ckmb on 2019-10-24 CK.MB [Mass/Vol] 1.8 <7.8 ng/mL Normal 10-24-2019 [facility] (39432) Comment: Performed By: #### CRP, MBE, NTBNP, JO, DDMER #### [facility] [address] [place] [id number] cbc and differential on 2019-10-24 Abs Baso 0.06 <0.11 k/uL Normal 10-24-2019 [facility] (10845) Abs Butts 0.69 <0.87 k/uL Normal 10-24-2019 [facility] (31797) Abs Neut 8.17 1.45-7.50 k/uL High 10-24-2019 [facility] (19230) Absolute nRBC <0.01 <0.01 Normal 10-24-2019 [facility] (61612) Basophils/100 WBC 0.6 % Normal 10-24-2019 [facility] (Bld) [place] (88496) DTYPE Auto Diff Normal 10-24-2019 [facility] (95699) Eosinophils (Bld) 0.08 <0.46 k/uL Normal 10-24-2019 [facility] [#/Vol] [place] (11870) Eosinophils/100 WBC 0.8 % Normal 10-24-2019 [facility] (Bld) [place] (17222) Erythrocyte 13.1 11.5-15.0 % Normal 10-24-2019 [facility] distribution width [facility] (18855) (RBC) [Ratio] Hematocrit (Bld) 48.3 39.0-51.0 % Normal 10-24-2019 [facility] [Volume fraction] [facility] (41890) Hemoglobin (Bld) 17.5 13.0-17.0 g/dL High 10-24-2019 [facility] [Mass/Vol] [place] (65693) Lymphocytes (Bld) 1.63 1.00-4.00 k/uL Normal 10-24-2019 [facility] [#/Vol] [place] (98601) Lymphocytes/100 WBC 15.3 % Normal 10-24-2019 [facility] (Bld) [place] (79297) MCH (RBC) [Entitic 29.4 26.0-34.0 pG Normal 10-24-2019 [facility] mass] [place] (79094) MCHC (RBC) 36.2 30.5-36.0 g/dL High 10-24-2019 [facility] [Mass/Vol] [place] (92268) MCV (RBC) [Entitic 81.2 80.0-100.0 fL Normal 10-24-2019 [facility] vol] [place] (42733) Monocytes/100 WBC 6.5 % Normal 10-24-2019 [facility] (d) [place] (98048) Neutrophils/100 WBC 76.8 % Normal 10-24-2019 [facility] ([facility]) [place] (08859) NRBCs 0.0 0 /100 WBC Normal 10-24-2019 [facility] (15661) Platelet mean volume 9.6 9.0-12.7 fL Normal 0 [facility] ([facility]) [Entitic vol] [place] (52643) Platelets (d) 266 150-400 k/uL Normal 10-24-2019 [facility] [#/Vol] [place] (03650) RBC (Bld) [#/Vol] 5.95 4.20-6.00 m/uL Normal 10-24-2019 [facility] (19414) WBC (Bld) [#/Vol] 10.63 3.70-11.00 k/uL Normal 10-24-2019 [facility] (40018) c-reactive protein on 2019-10-24 CRP [Mass/Vol] 0.3 <0.9 mg/dL Normal 10-24-2019 [facility] (85701) Comment: Performed By: #### CRP, MBE, NTBNP, JO, DDMER #### [facility] [address] [place], [place] [id number] progress on 2019-10 PROGRESS HNO ID: [id number] Normal 10-23-2019 [facility] Author: Jerry (Kathya) [facility] (65392) Service: ? Author Type: Nurse Practitioner Type: Progress Notes Filed: 10/23/2019 4:53 PM Note Text: Chief Complaint No chief complaint on file. In lieu of an in person visit due to coronavirus COVID 19 pa ndemic concerns, a telephone visit was performed with patient. Minerva ent is aware that I am not fully able to assess symptoms and do a full ph ysical exam including vital signs in office at this time. Patient consen ts to the visit. This Team Access Model visit is a phone encounter. It requir ed patient-provider interaction for the medical decision making as documented below. Patient was offered a virtual/telemedicine appointmen t in lieu of an office visit due to recommendations to reduce patient exp osure to COVID-19. No video was used for evaluation of this patient. Patient agrees to the visit: Yes Patient Location: [facility] Jose Asif is a 59 year old male who is contacted today f or a phone visit This is an established patient of Nannette Bill. Reports: Started on 09/30 with noticeable SOB and continued t o worsen-is winded going up stairs, any activity. On 10/03, 10/07 was seen in the Emergency Room in [facility]. They did EKG, lab work, kaci st xray, a test for blood clots in his lungs. Did an ultrasound and fou nd fluid in right lung. Then dx with pneumonia and given Doxycycline for 7 days. He then did a telehealth with his PCP and called in 10 days of Doxycycline and supplemental oxygen. Is unable to walk any significant d istance without SOB, cannot speak in full sentences. 10/18-potassium w as low and was given 20mg tabs to be taken 3x daily for 3 days, then 2x daily x3 days, then once daily. Had ABG done-unsure of results. Feels very weak, does not have an appetite, gets bloated and it puts pressure on his lungs with makes his chest pressure worse. Has tested negative for COVID-19, flu A/B, and RSV. Has been sleeping in a recliner. He tried to sleep in bed last night, but just didn't work. The albuterol inhaler may have helped a little. He noticed some pain in his left lung with taking deep breaths, very occasional cough-is really more of a throat cl earing. Not necessarily chest pain, but significant tightness. No known fever, but does get hot sweats and chills. He has lost 15-16 pounds 3-4 weeks unintentionally. Cannot use his CPAP because it is too hard for him to breathe out against the pressure. They never tried him on ox ygen supplementally at the ER. Is on short term disability through November 11 for these sympto ms. Past medical history, appointments, medications, allergies r eviewed 10/23/2019 Previous Medical History PAST MEDICAL HISTORY Diagnosis Date - Abdominal pain, left upper quadrant - Allergic rhinitis, cause unspecified - Arrhythmia - Blood in stool - Hernia of unspecified site of abdominal cavity without men tion of obstruction or gangrene umbilical - High cholesterol - Snoring - Umbilical hernia without mention of obstruction or gangren e - Unspecified essential hypertension borderline Previous Surgical History PAST SURGICAL HISTORY Procedure Laterality Date - COLONOSCOP W/ OR W/O [facility] SPEC 12/16/15 Colonoscopy - COLONOSCOPY 2002 - REMOVAL OF TONSILS,12+ Y/O age 19 - REPAIR UMBILICAL KAYLA,5+Y/O,REDUC 10/25/2009 - UNSPECIFIED ORAL SURGERY PROCEDURE, BY REPORT one wisdom tooth removed Family History FAMILY HISTORY Problem Relation Age of Onset - Diabetes Maternal Grandmother - Diabetes Mother - Hypertension Mother - Lipids Mother Patient Allergies ALLERGIES Allergen Reactions - Sulfa (Sulfonamide * Current Medications Current Outpatient Medications on File Prior to Visit Medication Sig - KRILL OIL ORAL Take by mouth once daily. - hydrochlorothiazide 25 mg tablet Take 1 tablet by mouth on ce daily. - lansoprazole(PREVACID 30 MG CAP) Take one(1) capsule daily . (Patient taking differently: as needed) - Naproxen Sodium (ALEVE) 220 mg ORAL Tab Take one(1) tablet twice daily.as necessary No current facility-administered medications on file prior t o visit. Social History Social History Tobacco Use - Smoking status: Never Smoker Substance Use Topics - Alcohol use: Yes Comment: occasionally/socially - Drug use: No Review of Symptoms GENERAL: Positive for malaise and fatigue. No fevers. HEENT: Negative for headaches No eye discharge or redness No earaches No sore throat Nose NEG for congestion and nasal discharge NECK: Negative for pain or swelling. No lumps RESPIRATORY: No wheezing, SOB, Difficulty breathing. No coug h CARDIOVASCULAR: Negative for chest pain GI: No nausea, vomiting, or diarrhea MUSCULOSKELETAL: Negative for bodyaches SKIN: Negative for rash or itching Neuro: No lightheadedness or dizziness EXAM: There were no vitals taken for this visit. Deferred physical exam as visit was completed over the phone /MyChart. Health Maintenance List DTAP,TDAP,TD(1 - Tdap) due on 1973 ANNUAL PCP TEAM CHRONIC DISEASE VISIT due on 1980 HIV SCREENING due on 1980 BP CONTROLLED (<130/80) due on 1980 LIPID SCREEN due on 1997 HEPATITIS C SCREENING due on 2006 DIABETES SCREEN due on 10/05/2007 SHINGRIX VACCINE(1 of 2) due on 2012 PROSTATE CANCER SCREENING DISCUSSION due on 2017 INFLUENZA(Season Ended) due on 03/12/2020 COLORECTAL CANCER SCREENING,SEE MODIFIER due on 12/16/2025 Data reviewed Last 5 Encounter BP Readings: Date: BP: 03/21/2017 122/82 02/10/2016 121/84 11/22/2015 126/76 11/21/2015 132/80 08/20/2014 132/80 BMI Readings from Last 5 Encounters: 03/21/17 : 33.25 kg/m? 02/10/16 : 32.98 kg/m? 12/16/15 : 33.16 kg/m? 11/21/15 : 33.17 kg/m? Last 5 Encounter Wt Readings: Date: Wt: 03/21/2017 114.3 kg (252 lb) 02/10/2016 113.4 kg (250 lb) 11/22/2015 114 kg (251 lb 5.2 oz) 11/21/2015 114 kg (251 lb 6.4 oz) 08/20/2014 113.4 kg (250 lb) Medication and allergy list reviewed, reconciled and updated 10/23/2019 Total appointment time on phone with patient = 21-30 minutes ASSESSMENT/PLAN: 1. SOB (shortness of breath) - ICD9: 786.05, ICD10: R06.02 ( primary diagnosis) Worse with exertion, worsening over past month. - NT PRO BNP - CBC + DIFF - TROPONIN T - CKMB ONLY - D-DIMER - CT CHEST W IVCON PE - IV CONTRAST (RADIOLOGY PROCEDURE) - COMP METABOLIC PANEL 2. Chest tightness - ICD9: 786.59, ICD10: R07.89 Worse with exertion, worsening over past month. - NT PRO BNP - TROPONIN T - CKMB ONLY - D-DIMER - C-REACTIVE PROTEIN (CRP) - CT CHEST W IVCON PE - IV CONTRAST (RADIOLOGY PROCEDURE) - COMP METABOLIC PANEL 3. Fatigue, unspecified type - ICD9: 780.79, ICD10: R53.83 - CBC + DIFF - C-REACTIVE PROTEIN (CRP) - COMP METABOLIC PANEL 4. Generalized weakness - ICD9: 780.79, ICD10: R53.1 - CBC + DIFF - C-REACTIVE PROTEIN (CRP) - COMP METABOLIC PANEL 5. Hypokalemia - ICD9: 276.8, ICD10: E87.6 Likely r/t triamterene-HCTZ medication. May consider changeliu bunch to another medication, based on results of CMP. He will currently ishaan jeri taking his 20meq KCL supplement daily. - COMP METABOLIC PANEL 6. Dehydration - ICD9: 276.51, ICD10: E86.0 - CBC + DIFF - COMP METABOLIC PANEL Jerry Lama APRN.KATHYA welsh on 2019-10-23 KATHYAN Telephone (FAMWS) Normal 10-23-2019 [place] [facility] JOSE ASIF ([id number]) 1960 [address] JEFF [place] Date Time Provider Department ([id number]) 10/23/19 J[facility] L[facility] During your visit today, we recorded the following informati on about you: Jerry Lama APRN.CNP 10/23/2019 4:52 PM Signed Please inform patient that after reviewi ng his records from [facility], and discussing with Dr. Knapp, I would like him to come in and have some lab work drawn. In addition, I would like ahmet cabrera to have a CT of his chest performed, and have this done tomorrow if at all possible. Please assist him to schedule this. Jerry Lama APRN.SHEET METAL SUPERINTENDENT Marybel Ignacio Ma 10/23/2019 5:13 PM Signed Patient notified. Please assist pt with CT scan. See below message Keith Cabrera [facility] 10/24/2019 12:57 PM Signed Patient scheduled for October 24, 2019. Patient voiced underst anding. Allergies As of Date: 10/23/2019 Noted Allergy Reaction SULFA (SULFONAMIDE ANTIBIOTICS) 07/20/2005 Date Reviewed: 10/23/2019 Reviewed by: Jerry (Gyn Physician) Teresa - Fully Assessed Reason for Visit: CT Scan [Other] Prescriptions as of 10/23/2019 Sig: TRIAMTERENE 37.5 MG-HYDROCHLO* Take 1 capsule by mouth once * IV CONTRAST (RADIOLOGY PROCED* CT Chest PE -Inject, intraven * KRILL OIL ORAL Take by mouth once daily. * PREVACID 30 MG CAPSULE,DELAYE* Take one(1) capsule daily. Patient taking differently: as needed * ALEVE 220 MG TABLET Take one(1) tablet twice josé manuel* Problem List As Of Date 10/23/2019 Noted Resolved ABDOMINAL PAIN LUQ [R10.12] Hypertension [I10] 11/25/2013 Blood in stool [K92.1] Encounter Status:Closed by DAVID TORREZ KEITH Cabrera on 10/24/19 lactate on Lactate [Moles/Vol] 2.0 0.5 - 2.0 mmol/L Normal 10-19-2019 [facility] ( 40773) Comment: Performed By: #### [id number] ## ##[facility],[address] [place] [address] d-dimer, quantitative on 2019-10-19 D-DIMER QUANT 177 0 - 230 ng/ml Normal 10-19-2019 [facility] (47764) Comment: Performed By: #### [id number] ## ##[facility],[address] [place] [address] 57587 D-DIMER, QUANTITATIVE Normal 10-19-19 [facility] (45045) Comment: Result Comment: QUANT D-DIME R Performed By: #### [id number] ## ##[facility],[address] [place] [address] 62963 cmp with egfr on 29-10-08 Age - Reported 59 years Normal 10-19-2019 [facility] (54491) Comment: Performed By: #### [id number] ## ##[facility],[address] [place] [address] 36965 Albumin [Mass/Vol] 4.6 3.4 - 4.8 g/dL Normal 10-19-2019 [facility] ( 38643) Comment: Performed By: #### [id number] ## ##[facility],[address] [place] [address] 34693 Albumin/Globulin [Mass 1.4 0.9 - 1.6 {ratio} Normal [address] [place] [address] (30324) Comment: Performed By: #### [id number] ## ##[facility],[address] [place] [address] 34614 ALK PHOS 56 38 - 126 U/L Normal 10-19-2019 [facility] (69351) Comment: Performed By: #### [id number] ## ##[facility],[address] [place] [address] 37543 ALT/SGPT 55 10 - 40 U/L High 10-19-2019 [facility] (06308) Comment: Performed By: #### [id number] ## ##[facility],[address] [place] [address] 76041 Anion gap [Moles/Vol] 15 10 - 20 mmol/L Normal 10-19-19 [facility] ( 49049) Comment: Performed By: #### [id number] ## ##[facility],[address] [place] [address] 99760 AST/SGOT 27 13 - 39 U/L Normal 10-19-2019 [facility] (69240) Comment: Performed By: #### [id number] ## ##[facility],[address] [place] [address] [place] [address] B/C RATIO 14 0 - 30 ratio Normal 10-19-2019 [facility] (69581) Comment: Performed By: #### [id number] ## ##[facility],[address] [place] [address] [place] [address] Bilirubin [Mass/Vol] 0.8 0.0 - 1.5 mg/dl Normal 0 [facility] ( 62030) Comment: Performed By: #### [id number] ## ##[facility],[address] [place] [address] 06615 Calcium [Mass/Vol] 9.3 8.6 - 10.2 mg/dl Normal 10-19-2019 [facility] ( 58093) Comment: Performed By: #### [id number] ## ##[facility],[address] [place] [address] 79916 Chloride [Moles/Vol] 99 98 - 107 mmol/L Normal 0 [facility] ( 87473) Comment: Performed By: #### [id number] ## ##[facility],[address] [place] [address] 18223 CO2 [Moles/Vol] 21.2 21.0 - 31.0 mmol/L Normal 10-19-2019 [facility] ( 64055) Comment: Performed By: #### [id number] ## ##[facility],[address] [place] [address] [place] [address] Creatinine [Mass/Vol] 0.9 0.7 - 1.3 mg/dl Normal 10-19-19 20 [facility] ( 36137) Comment: Performed By: #### [id number] ## ##[facility],[address] [place] [address] 93859 GFR/1.73 sq M predicted among Normal 10-19-2019 [facility] non-blacks MDRD (S/P/Bld) [Vol Hospital (84423) rate/Area] Comment: Result Comment: COMPREHENSIV E METABOLIC PANEL Performed By: #### [id number] ## ##[facility],[address] [place] [address] 26272 GFR/1.73 sq M >60 60 - 999 mL/min/{1.73_m2} Normal 0 [facility] among [facility] non-blacks MDRD (000 00) (S/P/Bld) [Vol rate/Area] Comment: Result Comment: ACCORDING TO THE NATIONAL KIDNEY DISEASE EDUCATION PROGRAM(NKDE), A NORMAL eGFR IS A VALUE GREATER THAN OR E QUAL TO 60 ML/MIN/1.73 SQ METERS. CHRONIC KIDNEY DISEASE: <60m L/MIN/1.73 SQ METERS KIDNEY FAILURE: <15mL/MIN/1. 73 SQ METERS THIS TEST SHOULD ONLY BE USE D FOR PATIENTS 18 YEARS OF AGE AND OLDER. Performed By: #### [id number] ## ##[address] [address] Globulin (S) [Mass/Vol] 3.2 1.5 - 3.8 G/DL Normal 2019 [facility] ( 11043) Comment: Performed By: #### [id number] ## ##[address] [address] Glucose [Mass/Vol] 106 74 - 106 mg/dl Normal 10-19-2019 [facility] ( 89218) Comment: Performed By: #### [id number] ## ##[address] [address] Potassium [Moles/Vol] 3.2 3.5 - 5.1 mmol/L Low 10-19-19 20 [facility] ( 25035) Comment: Performed By: #### [id number] ## ##[address] [address] Protein [Mass/Vol] 7.8 6.4 - 8.3 g/dl Normal 10-19-2019 [facility] ( 03199) Comment: Performed By: #### [id number] ## ##[facility],[address] [place] [address] 61927 Sodium [Moles/Vol] 132 136 - 145 mmol/l Low 10-19-2019 [facility] ( 43234) Comment: Performed By: #### [id number] ## ##[facility],[address] [place] [address] 81544 Urea nitrogen [Mass/Vol] 13 6 - 20 mg/dl Normal 10-18 [facility] ( 70221) Comment: Performed By: #### [id number] ## ##[facility],[address] [place] [address] 76797 chest 1 view on 0-10-18 CHEST 1 VIEW [facility] Normal 0 [facility] [address] [place] [address] ([id number]) Patient: JOSE ASIF Phone#: : 1960 Age: 59 Gender: M Pt. Type: ER Account: [id number] Location: [facility] Ordering: MICHAEL KINCAID Exam Date: 10/19/2019/11:52 Family Phys: VIKTOR HORTON Charge Code: 255779 Physician: [place] Order #: [id number] DLP Dose#: PROCEDURE: X-RAY CHEST 1 VIEW COMPARISON: [facility], XR, CHEST 2 VIEWS, 0, 3:33. [facility], XR, CHEST 2 VIEWS, 10/08/2019, 17:06. INDICATIONS: Shortness of Breath. FINDINGS: LUNGS: Normal. No significant pulmonary parenchymal abnormal ities. VASCULATURE: Normal. Unremarkable pulmonary vasculature. CARDIAC: Normal. No cardiac silhouette abnormality or cardio megaly. MEDIASTINUM: Normal. No visible mass or adenopathy. PLEURA: Normal. No effusion or pleural thickening. BONES: There are degenerative changes of the spine. OTHER: Monitoring leads project across the thorax. CONCLUSION: No acute disease. No significant change has occu rred. Dictated by: Eboni Estrada MD on 10/19/2019 at 12:12 Approved by: Eboni Estrada MD on 10/19/2019 at 12:12 cbc + diff on 10-18 Basophils (Bld) 0.00 0.00 - 0.10 x10EE3/UL Normal 10-19-2019 Jayro angeline [place] [#/Vol] [facility] (14093) Comment: Performed By: #### [id number] ## ##[address] [address] Basophils/100 WBC (Bld) 0.2 0.0 - 2.0 % Normal 2019 [facility] ( 74178) Comment: Performed By: #### [id number] ## ##[address] [address] CBC + DIFF Normal 10-19-2019 [facility] (77656) Comment: Result Comment: CBC-COMPLETE BLOOD COUNT Performed By: #### [id number] ## ##[address] [address] Eosinophils (Bld) 0.00 0.00 - 0.50 x10EE3/UL Normal 10-19-2019 [facility] [#/Vol] [facility] (09907) Comment: Performed By: #### [id number] ## ##[address] [address] Eosinophils/100 WBC (Bld) 0.4 0.0 - 7.0 % Normal [facility] ( 82421) Comment: Performed By: #### [id number] ## ##[address] [address] Erythrocyte distribution 13.6 12.0 - 15.6 % Normal [facility] (RBC) [Ratio] Hospital (60872) Comment: Performed By: #### [id number] ## ##[address] [address] Hematocrit (Bld) [Volume 50.7 40.0 - 52.0 % Normal [facility] ( 15822) Comment: Performed By: #### [id number] ## ##[facility],[address] [place] [address] 94476 Hemoglobin (Bld) 17.9 13.0 - 17.5 g/dl High 10-19-2019 [facility] [Mass/Vol] [facility] (17707) Comment: Performed By: #### [id number] ## ##[facility],[address] [place] [address] 87840 Lymphocytes (Bld) 1.70 0.80 - 2.80 x10EE3/UL Normal 10-19-2019 [facility] [#/Vol] [facility]ital (36388) Comment: Performed By: #### [id number] ## ##[address] [address] Lymphocytes/100 WBC (Bld) 14.2 20.0 - 45.0 % Low [facility] ( 16491) Comment: Performed By: #### [id number] ## ##[address] [address] MANUAL DIFF N/A Normal 10-19-2019 [facility] (35851) Comment: Performed By: #### [id number] ## ##[address] [address] MCH (RBC) [Entitic mass] 29 27 - 33 pg Normal 10-18 [facility] ( 96833) Comment: Performed By: #### [id number] ## ##[address] [address] MCHC (RBC) [Mass/Vol] 35 32 - 36 X10 3 Normal 10-19-19 20 [facility] ( 96470) Comment: Performed By: #### [id number] ## ##[address] [address] MCV (RBC) [Entitic vol] 83 81 - 98 fl Normal 2019 [facility] ( 71876) Comment: Performed By: #### [id number] ## ##[facility],[address] [place] [address] 79074 Monocytes (Bld) 0.80 0.20 - 1.00 x10EE3/UL Normal 10-19-2019 [facility] [#/Vol] [facility] (80472) Comment: Performed By: #### [id number] ## ##[facility],[address] [place] [address] 64698 MONOS % 6.6 0.0 - 10.0 % Normal 10-19-2019 [facility] (77416) Comment: Performed By: #### [id number] ## ##[address] [address] Morphology Gerardo (Bld) [Interp] N/A Normal 10-19-2019 [facility] ( 11594) Comment: Performed By: #### [id number] ## ##[address] [address] Neutrophils (Bld) 9.40 1.50 - 7.10 x10EE3/UL High 10-19-2019 [facility] [#/Vol] [facility] (57310) Comment: Performed By: #### [id number] ## ##[address] [address] Neutrophils/100 WBC (Bld) 78.6 46.0 - 76.0 % High [facility] ( 98550) Comment: Performed By: #### [id number] ## ##[address] [address] Platelet mean volume 8.0 6.4 - 10.5 fl Normal 10-19-19 20 [facility] (Bld) [Entitic vol] [facility] (39708) Comment: Result Comment: AUTOMATED DI FFERENTIAL Performed By: #### [id number] ## ##[address] [address] Platelets (Bld) 293 150 - 450 x10EE3/UL Normal 10-19-2019 [facility] [#/Vol] [facility] Maryann dalaltal (54970) Comment: Performed By: #### [id number] ## ##[facility],[address] [place] [address] 48115 RBC (Bld) [#/Vol] 6.12 4.50 - 6.00 x 10EE6/UL High 0 [facility] ( 85627) Comment: Performed By: #### [id number] ## ##[facility],[address] [place] [address] 54480 WBC (Bld) [#/Vol] 11.9 4.5 - 10.8 x 10EE3/UL High 10-19-2019 [facility] ( 87242) Comment: Performed By: #### [id number] ## ##[facility],[address] [place] [address] 03741 bnp (b-type natriuretic peptide) on 2019-10-19 Natriuretic peptide B (Bld) 10 1 - 100 pg/ml Normal [facility] [Mass/Vol] [facility] (34056) Comment: Performed By: #### [id number] ## ##[facility],[address] [place] [address] 10566 arterial blood gas analysis on 2019-10-19 ALLENS TEST + Normal 10-19-2019 [facility] (25060) Comment: Result Comment: { TIME LLOYD D Performed By: #### [id number] ## ##[facility],[address] [place] [address] 84671 ARTERIAL BLOOD GAS ANALYSIS Normal [facility] (72477) Comment: Result Comment: ARTERIAL BLO OD GAS Performed By: #### [id number] ## ##[facility],[address] [place] [address] 15277 Base excess Calc (Bld) -4 -2 - 3 mmol/L Low 020 [facility] [Moles/Vol] [facility] (88645) Comment: Performed By: #### [id number] ## ##[facility],[address] [place] [address] 44384 HCO3 (Bld) [Moles/Vol] 19 22 - 26 mmol/L Low 020 [facility] ( 08332) Comment: Performed By: #### [id number] ## ##[facility],[address] [place] [address] 51151 MODALITY RA Normal 10-19-2019 [facility] (57114) Comment: Performed By: #### [id number] ## ##[facility],[address] [place] [address] 32915 Oxygen (Bld) [Partial 99 80 - 105 mm Hg Normal 10-19-19 20 [facility] ( 08108) Comment: Performed By: #### [id number] ## ##[address] [address] PCO2 22 35 - 45 mm Hg Low 10-19-2019 [facility] (27461) Comment: Performed By: #### [id number] ## ##[address] [address] pH (Bld) 7.54 7.35 - 7.45 [pH] High 10-19-2019 [facility] (31294) Comment: Performed By: #### [id number] ## ##[address] [address] SAMPLE SITE RR Normal 10-19-2019 [facility] (02290) Comment: Performed By: #### [id number] ## ##[address] [address] SaO2 99 95 - 98 High 10-19-2019 [facility] (35595) Comment: Result Comment: TIME RESULT CALLED _. 10/19/19.1202.JHV. { FIO2/LPM .21 Performed By: #### [id number] ## ##[facility],[address] [place] [address] 74677 VENT N/A Normal 10-19-2019 [facility] (28797) Comment: Performed By: #### [id number] ## ##[facility],[address] [place] [address] 14205 troponin on 2019-09 Troponin I.cardiac 0.02 0.00 - 0.05 ng/ml Normal 0 [facility] [Mass/Vol] [facility] (49323) Comment: Result Comment: Elevated tro ponin (above the 99th percentile) usually indicates myocardial ischemia. Results must be in terpreted within the clinical setting. 1.Non-ischemic pathology can also cause elevated troponin levels (e.g., acute pulmonary embol ism, myocarditis, pericarditis, heart failure, intracranial injury, rhabdom yolisis, sepsis, shock and renal insufficiency). 2.Approximately 1% of health y adults have elevated troponin levels. 3.Analytical false positive results rarely occur(due to multiple interferences such as heterophile antibodi es). Performed By: #### [id number] ## ## [facility],[address] [place] [address] 10558 lactate on Lactate [Moles/Vol] 1.2 0.5 - 2.0 mmol/L Normal 10-08-2019 [facility] ( 02076) Comment: Performed By: #### [id number] ## ## [facility],[address] [place] [address] 65514 d-dimer, quantitative on 2019-10-08 D-DIMER QUANT 157 0 - 230 ng/ml Normal 10-08-2019 [facility] (27467) Comment: Performed By: #### [id number] ## ## [facility],[address] [place] [address] 83397 D-DIMER, QUANTITATIVE Normal 10-08-19 20 [facility] (59812) Comment: Result Comment: QUANT D-DIME R Performed By: #### [id number] ## ## [facility] [facility] [address] cmp with egfr on 28-09-28 Age - Reported 59 years Normal 10-08-2019 [facility] (12688) Comment: Performed By: #### [id number] ## ## [facility] [facility] 41648 Albumin [Mass/Vol] 4.8 3.4 - 4.8 g/dL Normal 10-08-2019 [facility] ( 10393) Comment: Performed By: #### [id number] ## ## [facility],[address] [place] [address] 05080 Albumin/Globulin [Mass 1.5 0.9 - 1.6 {ratio} Normal 020 [facility]] [facility] (48152) Comment: Performed By: #### [id number] ## ## [facility],[address] [place] [address] 98235 ALK PHOS 50 38 - 126 U/L Normal 10-08-2019 [facility] (89105) Comment: Performed By: #### [id number] ## ## [facility] 93773 ALT/SGPT 61 10 - 40 U/L High 10-08-2019 [facility] (19011) Comment: Performed By: #### [id number] ## ## [facility] 69619 Anion gap [Moles/Vol] 16 10 - 20 mmol/L Normal 10-08-19 20 [facility] ( 45975) Comment: Performed By: #### [id number] ## ## [facility] [facility] 6[address] AST/SGOT 33 13 - 39 U/L Normal 10-08-2019 [facility] (98761) Comment: Performed By: #### [id number] ## ## [facility] saul,[address] [facility] 04163 B/C RATIO 14 0 - 30 ratio Normal 10-08-2019 [facility] (64528) Comment: Performed By: #### [id number] ## ## [facility] saul,[address] [facility] 14766 Bilirubin [Mass/Vol] 1.0 0.0 - 1.5 mg/dl Normal 0 [facility] ( 35372) Comment: Performed By: #### [id number] ## ## [facility] [facility] [address]115 Calcium [Mass/Vol] 10.3 8.6 - 10.2 mg/dl High 10-08-2019 [facility] ( 58188) Comment: Performed By: #### [id number] ## ## [facility] [facility] 22914 Chloride [Moles/Vol] 96 98 - 107 mmol/L Low 0 [facility] ( 42369) Comment: Performed By: #### [id number] ## ## [facility],981 [facility] [place] [address] CO2 [Moles/Vol] 23.6 21.0 - 31.0 mmol/L Normal 10-08-2019 [facility] ( 20169) Comment: Performed By: #### [id number] ## ## [facility] [facility] 95584 Creatinine [Mass/Vol] 1.0 0.7 - 1.3 mg/dl Normal 10-08-19 20 [facility] ( 79331) Comment: Performed By: #### [id number] ## ## [facility] [facility] 12745 GFR/1.73 sq M predicted among Normal 10-08-2019 [facility] non-blacks MDRD (S/P/Bld) [Vol Hospital (75972) rate/Area] Comment: Result Comment: COMPREHENSIV E METABOLIC PANEL Performed By: #### [id number] ## ## [facility],[address] [place] [address] 09104 GFR/1.73 sq M >60 60 - 999 mL/min/{1.73_m2} Normal 0 [facility] non-blacks MDRD (000 00) (S/P/Bld) [Vol rate/Area] Comment: Result Comment: ACCORDING TO THE NATIONAL KIDNEY DISEASE EDUCATION PROGRAM(NKDE), A NORMAL eGFR IS A VALUE GREATER THAN OR E QUAL TO 60 ML/MIN/1.73 SQ METERS. CHRONIC KIDNEY DISEASE: <60m L/MIN/1.73 SQ METERS KIDNEY FAILURE: <15mL/MIN/1. 73 SQ METERS THIS TEST SHOULD ONLY BE USE D FOR PATIENTS 18 YEARS OF AGE AND OLDER. Performed By: #### [id number] ## ## [facility],[address] [place] [address] 05861 Globulin (S) [Mass/Vol] 3.1 1.5 - 3.8 G/DL Normal 2019 [facility] ( 73776) Comment: Performed By: #### [id number] ## ## [facility],[address] [place] [address] 92965 Glucose [Mass/Vol] 110 74 - 106 mg/dl High 10-08-2019 [facility] (72220) Comment: Performed By: #### [id number] ## ## [facility],[address] [place] [address] 22307 Potassium [Moles/Vol] 2.9 3.5 - 5.1 mmol/L Critically low [facility] (11231) Comment: Result Comment: { CALLED TO KINGSTON@1652 / WKK { READ BACK BY KINGSTON / RA@16 52 Performed By: #### [id number] ## ## [facility],[address] [place] [address] 55723 Protein [Mass/Vol] 7.9 6.4 - 8.3 g/dl Normal 10-08-2019 [facility] ( 43152) Comment: Performed By: #### [id number] ## ## [facility] [facility] [address]608 Sodium [Moles/Vol] 133 136 - 145 mmol/l Low 10-08-2019 [facility] ( 10932) Comment: Performed By: #### [id number] ## ## [facility],[address] [place] [address] 82571 Urea nitrogen [Mass/Vol] 14 6 - 20 mg/dl Normal 10-07 [facility] ( 69481) Comment: Performed By: #### [id number] ## ## [facility],[address] [place] [address] 66113 chest 2 views on 20 28-09-28 CHEST 2 VIEWS [facility] Normal 10-08-19 [facility] [address] [place] [address] ([id number]) Patient: JOSE ASIF Phone#: : 1960 Age: 59 Gender: M Pt. Type: ER Account: [id number] Location: [facility] Ordering: JESSICA REED Exam Date: 10/08/2019/17:06 Family Phys: VIKTOR HORTON Charge Code: [id number] Physician: [place] Order #: [id number] DLP Dose#: PROCEDURE: X-RAY CHEST 2 VIEWS COMPARISON: [facility], XR, CHEST 2 VIEWS, 2019, 3:33. INDICATIONS: Dyspnea. FINDINGS: LUNGS: Normal. No significant pulmonary parenchymal abnormal ities. VASCULATURE: Normal. Unremarkable pulmonary vasculature. CARDIAC: Normal. No cardiac silhouette abnormality or cardio megaly. MEDIASTINUM: Normal. No visible mass or adenopathy. PLEURA: Normal. No effusion or pleural thickening. BONES: There are degenerative changes of the spine. OTHER: Negative. CONCLUSION: No acute disease. No significant change has occu rred. Dictated by: Eboni Estrada MD on 10/08/2019 at 21:21 Approved by: Eboni Estrada MD on 10/08/2019 at 21:21 cbc + diff on 10-07 Basophils (Bld) 0.10 0.00 - 0.10 x10EE3/UL Normal 10-08-2019 [facility] [#/Vol] [facility] (61039) Comment: Performed By: #### [id number] ## ## [facility],[address] [place] [address] 99596 Basophils/100 WBC (Bld) 0.4 0.0 - 2.0 % Normal 2019 [facility] ( 94362) Comment: Performed By: #### [id number] ## ## [facility],[address] [place] [address] 17309 CBC + DIFF Normal 10-08-2019 [facility] (79051) Comment: Result Comment: CBC-COMPLETE BLOOD COUNT Performed By: #### [id number] ## ## [facility],[address] [place] [address] 69241 Eosinophils (Bld) 0.00 0.00 - 0.50 x10EE3/UL Normal 10-08-2019 [facility] [#/Vol] [facility] (88699) Comment: Performed By: #### [id number] ## ## [facility],[address] [place] [address] 79859 Eosinophils/100 WBC (Bld) 0.2 0.0 - 7.0 % Normal 09-10 [facility] ( 01751) Comment: Performed By: #### [id number] ## ## [facility],[address] [place] [address] 26987 Erythrocyte distribution 13.7 12.0 - 15.6 % Normal [facility] (RBC) [Ratio] [facility] (24144) Comment: Performed By: #### [id number] ## ## [facility],[address] [place] [address] 49810 Hematocrit (Bld) [Volume 51.5 40.0 - 52.0 % Normal [facility] ( 37684) Comment: Performed By: #### [id number] ## ## [facility],[address] [place] [address] 77935 Hemoglobin (Bld) 18.3 13.0 - 17.5 g/dl High 10-08-2019 [facility] [Mass/Vol] [facility] (82812) Comment: Performed By: #### [id number] ## ## [facility],[address] [place] [address] 43652 Lymphocytes (Bld) 1.50 0.80 - 2.80 x10EE3/UL Normal 10-08-2019 [facility] [#/Vol] [facility] (01615) Comment: Performed By: #### [id number] ## ## [facility],[address] [place] [address] 30685 Lymphocytes/100 WBC (Bld) 11.1 20.0 - 45.0 % Low [facility] ( 80256) Comment: Performed By: #### [id number] ## ## [facility],[address] [place] [address] 56872 MANUAL DIFF N/A Normal 10-08-2019 [facility] (99455) Comment: Performed By: #### [id number] ## ## [facility],[address] [place] [address] 51653 MCH (RBC) [Entitic mass] 29 27 - 33 pg Normal 10-07 [facility] ( 87200) Comment: Performed By: #### [id number] ## ## [facility],[address] [place] [address] 55323 MCHC (RBC) [Mass/Vol] 36 32 - 36 X10 3 Normal 10-08-19 20 [facility] ( 85941) Comment: Performed By: #### [id number] ## ## [facility],[address] [place] [address] 23121 MCV (RBC) [Entitic vol] 82 81 - 98 fl Normal 2019 [facility] ( 42462) Comment: Performed By: #### [id number] ## ## [facility],[address] [place] [address] 04967 Monocytes (Bld) 1.00 0.20 - 1.00 x10EE3/UL Normal 10-08-2019 [facility] [#/Vol] [facility] (50087) Comment: Performed By: #### [id number] ## ## [facility],[address] [place] [address] 09160 MONOS % 7.4 0.0 - 10.0 % Normal 10-08-2019 [facility] (56645) Comment: Performed By: #### [id number] ## ## [facility],[address] [place] [address] 62077 Morphology Gerardo (Bld) [Interp] N/A Normal 10-08-2019 [facility] ( 69243) Comment: Performed By: #### [id number] ## ## [facility],[address] [place] [address] 95718 Neutrophils (Bld) 11.00 1.50 - 7.10 x10EE3/UL High 10-08-2019 [facility] [#/Vol] [facility] (55326) Comment: Performed By: #### [id number] ## ## [facility],[address] [place] [address] 33017 Neutrophils/100 WBC (Bld) 80.9 46.0 - 76.0 % High [facility] ( 80913) Comment: Performed By: #### [id number] ## ## [facility],[address] [place] [address] 32284 Platelet mean volume 8.5 6.4 - 10.5 fl Normal 10-08-19 20 [facility] (Bld) [Entitic vol] [facility] (69649) Comment: Result Comment: AUTOMATED DI FFERENTIAL Performed By: #### [id number] ## ## [facility],[address] [place] [address] 34314 Platelets (Bld) 258 150 - 450 x10EE3/UL Normal 10-08-2019 [facility] [#/Vol] [facility] (87210) Comment: Performed By: #### [id number] ## ## [facility],[address] [place] [address] 05717 RBC (Bld) [#/Vol] 6.28 4.50 - 6.00 x 10EE6/UL High 0 [facility] ( 19595) Comment: Performed By: #### [id number] ## ## [facility],[address] [place] [address] 11563 WBC (Bld) [#/Vol] 13.6 4.5 - 10.8 x 10EE3/UL High 10-08-2019 [facility] ( 77592) Comment: Performed By: #### [id number] ## ## [facility],[address] [place] [address] 34449 influenza virus rapid a/b on 2019 INFLUENZA VIRUS INFLUENZA A Normal 2019 [facility] RAPID A/B NEGATIVE [facility] INFLUENZA [facility] (78080) NEGATIVE INTERNAL NEG QC PASS INTERNAL POS QC PASS EXTERNAL QC DONE? YES A NEGATIVE TEST RESULT DOES NOT EXCLUDE INFECTION WITH INFLUENZA A OR B. THEREFORE, THE RESULTS OBTAINED FROM THIS FLU TEST SHOULD BE USED IN CONJUCTION WITH CLINICAL FINDINGS TO MAKE AN ACCURATE DIAGNOSIS. A POSITIVE RESULT DOES NOT RULE OUT CO-INFECTIONS WITH OTHER PATHOGENS OR IDENTIFY ANY SPECIFIC INFLUENZA A VIRUS SUBTYPE.CO-INFECTION WITH INFLUENZA A AND B IS RARE. IT IS RECOMMENDED THAT DUAL POSITIVE RESULTS BE CONFIRMED BY VIRAL CULTURE OR AN FDA-CLEARED INFLUENZA A AND B MOLECULAR ASSAY. INDIVIDUALS WHO HAVE RECEIVED NASALLY ADMINISTERED INFLUENZA A VACCINE MAY TEST POSITIVE IN COMMERCIALLY AVAILABLE INFLUENZA RAPID DIAGNOSTIC TESTS FOR UP TO THREE DAYS. Comment: Performed By: #### [id number] ## ## [facility] saul,[address] [facility] [address] emergency report on 2019 EMERGENCY REPORT [facility] Normal 10-03 [facility] EMERGENCY ROOM REPORT ([id number]) NAME ACCOUNT SEX AGE ADMIT DISCHARGE PT MED. RECORD# NUMBER DATE DATE TYPE JOSE ASIF [id number] Nannette 58 10/04/19 10/04/19 3 [id number] ROOM: ER DATE OF : 1960 DICTATING PHYSICIAN: Mary Marie CHIEF COMPLAINT/HISTORY OF PRESENT ILLNESS: Patient is a 58- year-old male with a past medical history of hypertension, presenting with cough. The patient states that for the past 2 days, he has had a wet productive cough and shortness of breath. He denies chest pain or accompa nying fevers. He states that his home albuterol inhaler does help his symptoms some. 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 REVIEW OF SYSTEMS: Significa nt for shortness of breath and cough, but negative for lightheadedness or dizziness , fevers or chills, chest pain, abdominal pain, nausea or vomiting, hematuria, dysuria , hematochezia, hemoptysis, or lower extremity swelling. PHYSICAL EXAMINATION: General: Well appearing, no acute di stress, nontoxic. HEENT: Pupils equal, round a nd reactive to light bilaterally, normocephalic, atraumatic. Neck: Supple. Full range of motion. Cardiovascular: Regular rate and rhythm. No rubs, gallops, or murmurs. Respira tory: Lungs clear to auscultation bilaterally. Abdomen: Soft, nontender, nondistended, pos itive bowel sounds. Extremities: No rashes. Neurologic: Moving all extremities equally without deficits. DIAGNOSTIC DATA: Rapid influenza negative and chest x- ray negative for acute consolidations or acute processes. MEDICAL DECISION MAKING: Patient very we ll appearing and in no acute distress, nontoxic, hemodynamically st able. Patient afebrile and has oxygen saturations greater than 96% and I do not believ e that he would benefit from COVID 19 testing at this time. EMERGENCY DEPARTMENT COURSE AND TREATMENT: I do believe that patient is experiencing a viral uppe r respiratory infection. He was discharged in stable condition with return precautions and PCP contact information for followup. He was advised to continue taking his albuterol inhaler. Dictated By: Mary Marie MD 10/04/19 04:55 JOB #: [id number] Transcribed By: ivan Page 1 of 2 JOSE ASIF Emergency Room Report JOSE ASIF : 1960 10/04/19 07:26 Electronically signed by: Mary Marie MD 10/04/19 10:59 Page 2 of 2 JOSE ASIF Emergency Room Report chest 2 views on 28-09-24 CHEST 2 VIEWS [facility] Normal 10-04-19 [facility] ospital [address] [place] [address] ([id number]) Patient: JOSE ASIF. Phone#: : 1960 Age: 58 Gender: M Pt. Type: ER Account: [id number] Location: 2 Ordering: Jayro MARIE Exam Date: 10/04/2019/3:33 Family Phys: VIKTOR HORTON Charge Code: 313487 Physician: [place] Order #: [id number] DLP Dose#: PROCEDURE: X-RAY CHEST 2 VIEWS COMPARISON: None. INDICATIONS: Cough FINDINGS: LUNGS: Normal. No significant pulmonary parenchymal abnormal ities. VASCULATURE: Normal. Unremarkable pulmonary vasculature. CARDIAC: Normal. No cardiac silhouette abnormality or cardio megaly. MEDIASTINUM: Normal. No visible mass or adenopathy. PLEURA: Normal. No effusion or pleural thickening. BONES: Normal. No fracture or visible bony lesion. OTHER: Negative. CONCLUSION: No acute disease. Dictated by: Eboni Estrada MD on 2019 at 8:29 Approved by: Eboni Estrada MD on 2019 at 8:29 Vital Signs Vital Sign Description Value / Unit Date Location The following section is limited to 5 en tries per type and includes entries from the following time range: 20200311 20200212 1. Body weight 117.48 kg 03-11-2020 [facility] ([id number]) BP Diastolic 92 mm[Hg] 03-11-2020 [facility] ([id number]) BP Systolic 138 mm[Hg] 03-11-2020 [facility] ([id number]) Pulse (Heart Rate) 84 /min 03-11-2020 [facility] (61383) Respiratory Rate 16 /min 03-11-2020 [facility] (76237) Encounters Date Type Reason Provider Location 10-19-2019 - Emergency MICHAEL pradhan 10-19-2019 department patient C KINCAIDKlaus Toney [facility] visit [facility] ([phone]) SOL HORTON UNKNOWN PROVIDER UNKNOWN PROVIDER UNKNOWN PROVIDER 10-08-2019 - Emergency Shortness of breath VIKTOR milligan 10-08-2019 department patient JESSICA EVANS ODESSA Memoria l visit [facility] ([phone]) [facility] CAROLYN HORTON UNKNOWN PROVIDER UNKNOWN PROVIDER UNKNOWN PROVIDER 2019 - Emergency J. WASHINGTON Perales 2019 department patient Mary WASHINGTON MARIE Memoria l visit [facility] ([phone]) [place] HORTON UNKNOWN PROVIDER UNKNOWN PROVIDER UNKNOWN PROVIDER 04-12-2020 - Patient encounter Essential Andre (Siri) Family Medicine 04-12-2020 procedure hypertension Ilan Johnson Comment: Essential hypertension (Prim shreyas Dx); Low blood potassium; Other chest pain 03-11-2020 - Patient encounter Essential Jerry (Kathya) Family Sd dicine 03-11-2020 procedure hypertension Teresa Alex Comment: Essential hypertension (Prim shreyas Dx); Pedal edema; Situational anxiety 04-12-2020 - Telemedicine Andre (Siri) [facility] melissa 04-12-2020 consultation with Ilan patient Procedures Procedure Name Date Provider Location Microscopic examination of blood, 10-19-2019 [facility] culture ([id number]) Comment: Performed By: #### [id number] ## ##[facility],[address] [place] [address] Microscopic examination of 10-08-2019 - 10-08-2019 [facility] blood, culture Hospital ([id number]) Comment: Performed By: #### [id number] ## ##[facility],[address] [place] [id number] Performed By: #### [id number] ## ## [facility],[address] [place] [address] Colonoscopy 12-17-2015 - 12-17-2015 [facility] ([id number]) Plan of Treatment Plan Description Date Location COLONOSCOPY COLONOSCOPY 12-16-2025 - [facility] 12-16-2025 ([id number]) DIABETES SCREEN DIABETES SCREEN 01-01-2023 - [facility] 01-01-2023 ([id number]) ANNUAL PCP TEAM CHRONIC ANNUAL PCP TEAM CHRONIC 03-11-2021 - [facility] DISEASE VISIT DISEASE VISIT 03-11-2021 ([id number]) INFLUENZA (#1) INFLUENZA (#1) 2020 - [facility] 03-12-2020 ([id number]) PROSTATE CANCER PROSTATE CANCER 2017 - [facility] SCREENING DISCUSSION SCREENING DISCUSSION 2017 ([id number] ) SHINGRIX VACCINE (1 of SHINGRIX VACCINE (1 of 2012 - [facility] 2) 2) 2012 (97692) LIPID SCREEN LIPID SCREEN 1997 - [facility] 1997 (06038) DTAP,TDAP,TD (1 - Tdap) DTAP,TDAP,TD (1 - Tdap) 1981 - [facility] 1981 (14264) BP CONTROLLED (<130/80) BP CONTROLLED (<130/80) 1980 - [facility] 1980 (60761) HEPATITIS C SCREENING HEPATITIS C SCREENING 1980 - [facility] 1980 (12328) HIV SCREENING HIV SCREENING 1980 - [facility] 1980 (73380) CMP (CMP) (FOR REMOTE CMP (CMP) (FOR REMOTE 04-12-2021 [facility] USE) [facility] USE) Lab Routine Low (61651) blood potassium 1 Occurrences starting 04/12/2020 until 04/12/2021 Comment: 1 Occurrences starting 04/12 until 04/12/2021 no information [facility] ([id number]) Payers Payer Name Policy Number Location [facility] [id number] [facility] (44 195) [facility] COMMERCIAL [id number] [facility] OUTPAITIENT ([id number]) [id number] [facility] ([id number]) [id number] [facility] ([id number]) [id number] [facility] ([id number]) The following information is from the original human readable contentNo Payer Records Found Social History Type Social History Date Location Description Tobacco use and exposure Former user 03-11-2020 - [facility] 04-12-2020 ([id number]) History SDOH Social 98 11-01-2019 - [facility] [employer] Phone 11-01-2019 ([id number]) History of tobacco use User of smokeless 10-22-2008 [facility] tobacco (70589) Alcohol intake [facility] 04-12-2020 (10015) History SDOH Alcohol 2 11-01-2019 - [facility] Frequency 11-26-2019 (25906) History SDOH Alcohol Std 1 11-01-2019 - [facility] Drinks 11-26-2019 (02067) Tobacco smoking status Never smoker 03-11-2020 - [facility] NHIS 04-12-2020 (49851) History SDOH Social 3 11-01-2019 - [facility] Living 11-26-2019 (29435) History SDOH Education 12 11-26-2019 - [facility] 11-26-2019 (44802) History SDOH Financial 4 11-26-2019 - [facility] 11-26-2019 (96919) Tobacco Comment used for 20-30 years, 10-23-2019 - [facility] quit about 13 years ago 10-23-2019 (31458) Sex Assigned At Not on file [facility] (95733) Exposure to SARS-CoV-2 Not sure [facility] (event) (61271) The following information is from the original human readable contentNo Social History Records FoundNo Social History Records FoundNo Social History Records Found Summary Purpose Family History No Family History Records FoundNo Family History Records Found Advance Directives No Advanced Directives Records Found Documents on File Type Date Recorded Patient Director Stage Explanati on Advance Directive(s) 12/16/2015 2:37 PM Documents on File Type Date Recorded Patient Director Stage Explanati on Advance Directive(s) 12/16/2015 2:37 PM Instructions Patient InstructionsStJerry moya) - 03/11/2020 9:10 AM EDTStart taking your spironolactone on a daily basis, in the morning. Send me a [employer] message in 3-4 weeks with some recent BP readings and report of your ankle swelling. Follow up in the office in 3 months. documented in this encounter History of Present Illness Jerry Lama) - 03/11/2020 8:51 AM EDT Patient presents with: Follow Up: Elevated BP, swelling in feets and ankles intermittently HPI: Jose Asif is a 59 year old male who presents to the office today for review of health conditions. Concerns today: He is still having some SOB, and starting to think that this is r/t stress. Cannot pinpoint anything specific that causes it or when it happens. He does have a lot of stress at his job. Has gained some weight. Has noticed over the past 2-3 weeks, his ankles have been swelling a bit. This swelling improves with elevation. His Bps have been running 140's/90's at home. Last 3 Encounter BP Readings: Date: BP: 03/11/2020 138/92 02/06/2020 132/78 03/21/2017 122/82 PAST MEDICAL HISTORY Diagnosis Date ? Abdominal pain, left upper quadrant ? Allergic rhinitis, cause unspecified ? Arrhythmia ? Blood in stool ? Hernia of unspecified site of abdominal cavity without mention of obstruction or gangrene umbilical ? High cholesterol ? Snoring ? Umbilical hernia without mention of obstruction or gangrene ? Unspecified essential hypertension borderline PAST SURGICAL HISTORY Procedure Laterality Date ? CHOLECYSTECTOMY 11/20/2019 Dr. Sanchez ? COLONOSCOP W/ OR W/O [facility] SPEC 12/16/15 Colonoscopy ? COLONOSCOPY 2002 ? REMOVAL OF TONSILS,12+ Y/O age 19 ? REPAIR UMBILICAL KAYLA,5+Y/O,REDUC 10/25/2009 ? UNSPECIFIED ORAL SURGERY PROCEDURE, BY REPORT one wisdom tooth removed Social History Tobacco Use ? Smoking status: Never Smoker ? Smokeless tobacco: Former User ? Tobacco comment: used for 20-30 years, quit about 13 years ago Substance Use Topics ? Alcohol use: Yes Frequency: Monthly or less Drinks per session: 1 or 2 Binge frequency: Less than monthly Comment: occasionally/socially ? Drug use: No FAMILY HISTORY Problem Relation Age of Onset ? Diabetes Mother ? Hypertension Mother ? Lipids Mother ? Diabetes Maternal Grandmother Allergies: ALLERGIES Allergen Reactions ? Sulfa (Sulfonamide * Current Meds: omeprazole 40 mg capsule Take 40 mg by mouth once daily. Review of Systems Constitutional: Negative. HENT: Negative. Respiratory: Positive for chest tightness and shortness of breath. Cardiovascular: Positive for leg swelling. Gastrointestinal: Negative. Endocrine: Negative. Genitourinary: Negative. Musculoskeletal: Negative. Neurological: Negative. Psychiatric/Behavioral: Stress PE: 03/11/20 0844 BP: 138/92 Pulse: 84 Resp: 16 Weight: 117.5 kg (259 lb) Physical Exam Vitals signs and nursing note reviewed. Constitutional: Appearance: Normal appearance. HENT: Head: Normocephalic and atraumatic. Cardiovascular: Rate and Rhythm: Normal rate and regular rhythm. Pulses: Normal pulses. Heart sounds: Normal heart sounds. Pulmonary: Effort: Pulmonary effort is normal. Breath sounds: Normal breath sounds. Skin: General: Skin is warm and dry. Capillary Refill: Capillary refill takes less than 2 seconds. Neurological: General: No focal deficit present. Mental Status: He is alert and oriented to person, place, and time. Psychiatric: Mood and Affect: Mood normal. Behavior: Behavior normal. ASSESSMENT/PLAN: 1. Essential hypertension - ICD9: 401.9, ICD10: I10 (primary diagnosis) Would rather not be taking a medication for his blood pressure, as he feels he has felt poorly from these types of medications in the past. Will utilize spironolactone, as he does have pedal edema as well as hx hypokalemia. He will notify me in 1 month of recent at-home blood pressures. Will follow upin the office again in 3 months. - SPIRONOLACTONE 25 MG TABLET 2. Pedal edema - ICD9: 782.3, ICD10: R60.0 See #1. - SPIRONOLACTONE 25 MG TABLET 3. Situational anxiety - ICD9: 300.09, ICD10: F41.8 Causing his SOB. Negative cardiac work up. At this time refusing medication for these symptoms. Willcontinue to monitor. Jerry Lama APRN.CNP To ER if develops chest pain, shortness of breath, or severe worsening of symptoms. Discussed risks, benefits, alternatives, and potential side effects of medications. Patient expressed understanding and agreed with the plan. Jerry Lama APRN.CNP [address] [place] [address] documented in this encounterAndre Talavera.LUCIANO Wright - 04/12/2020 8:40 AM EDT Chief Complaint Patient presents with: Follow Up This Team Access Model visit is a virtual encounter. It required patient- provider interaction for the medical decision making as documented below. Patient was offered a virtual/telemedicine appointmentin lieu of an office visit due to recommendations to reduce patient exposure to COVID-19. HIPAA secured video was used for evaluation of this patient. Patient agrees to the visit: Yes Patient Location: [facility] Jose Asif is a 59 year old male who is contacted today for a virtual visit This is an established patient of Dr. Jerry Lama APRN.KATHYA Reports: Follow-up on blood pressure. Placed on Spironolactone at previous appointment. Previously been on another diuretic but it caused low potassium levels. Was changed to spironolactone. States over the past week he feels at times he has some chest tightness and shortness of breath. This is been chronic for the past 6 months. He has had spirometry, echocardiogram, exercise stress test without anysignificant findings or ischemic changes noted on testing. Has not seen cardiology or pulmonology. No current or active chest pain. Chest tightness and shortness of breath occurs at rest and/or with activity. He was given a trial of an inhaler but it did not provide significant relief of his shortnessof breath. He has been compliant with aspire lactone over the past month. Blood pressures have averaged 140/80. Denies side effects from the medication. Past medical history, appointments, medications, allergies reviewed 04/12/2020 Previous Medical History PAST MEDICAL HISTORY Diagnosis Date ? Abdominal pain, left upper quadrant ? Allergic rhinitis, cause unspecified ? Arrhythmia ? Blood in stool ? Hernia of unspecified site of abdominal cavity without mention of obstruction or gangrene umbilical ? High cholesterol ? Snoring ? Umbilical hernia without mention of obstruction or gangrene ? Unspecified essential hypertension borderline Previous Surgical History PAST SURGICAL HISTORY Procedure Laterality Date ? CHOLECYSTECTOMY 11/20/2019 Dr. Sanchez ? COLONOSCOP W/ OR W/O [facility] SPEC 12/16/15 Colonoscopy ? COLONOSCOPY 2002 ? REMOVAL OF TONSILS,12+ Y/O age 19 ? REPAIR UMBILICAL KAYLA,5+Y/O,REDUC 10/25/2009 ? UNSPECIFIED ORAL SURGERY PROCEDURE, BY REPORT one wisdom tooth removed Family History FAMILY HISTORY Problem Relation Age of Onset ? Diabetes Mother ? Hypertension Mother ? Lipids Mother ? Diabetes Maternal Grandmother Patient Allergies ALLERGIES Allergen Reactions ? Sulfa (Sulfonamide * Current Medications Current Outpatient Medications on File Prior to Visit Medication Sig ? spironolactone (ALDACTONE) 25 mg tablet Take 1 tablet by mouth once daily. ? omeprazole 40 mg capsule Take 40 mg by mouth once daily. No current facility-administered medications on file prior to visit. Social History Social History Tobacco Use ? Smoking status: Never Smoker ? Smokeless tobacco: Former User ? Tobacco comment: used for 20-30 years, quit about 13 years ago Substance Use Topics ? Alcohol use: Yes Frequency: Monthly or less Drinks per session: 1 or 2 Binge frequency: Less than monthly Comment: occasionally/socially ? Drug use: No Review of Symptoms GENERAL: No malaise or fatigue. No fevers. HEENT: Negative for headaches Nose POS for congestion and nasal discharge NECK: Negative for pain or swelling. RESPIRATORY: No wheezing, Difficulty breathing. No cough. Chronic shortness of breath CARDIOVASCULAR: Negative for chest pain. Chronic chest tightness MUSCULOSKELETAL: Negative for bodyaches. Occasional extremity swelling SKIN: Negative for rash or itching Neuro: No lightheadedness or dizziness EXAM: There were no vitals taken for this visit. Virtual visit completed using video, limited exam completed. Patient sounds or appears ill: No General Appearance: Well appearing, alert, in no acute distress, well-hydrated, well nourished. Skin: Skin color normal Head: Normocephalic. No facial swelling or redness. EENT: Eyes nonreddened. No discharge. External ears nonreddened and no swelling. Neck: No mass or lesions. No swelling. FROM Patient is not able to speak in complete sentences: No Patient has labored breathing: No. Patient is audibly coughing: No Psych: Attitude - cooperative, easily engaged in conversation Affect - Euthymic, normal mood Mental status: Alert. Speech is clear and fluent with good repetition, comprehension Appearance - Normal hygiene and grooming appropriate Coordination: No abnormal or extraneous movements. Gait/Stance: Posture is normal. Health Maintenance List HEPATITIS C SCREENING due on 1980 HIV SCREENING due on 1980 BP CONTROLLED (<130/80) due on 1980 DTAP,TDAP,TD(1 - Tdap) due on 1981 LIPID SCREEN due on 1997 SHINGRIX VACCINE(1 of 2) due on 2012 PROSTATE CANCER SCREENING DISCUSSION due on 2017 INFLUENZA(1) due on 03/12/2020 ANNUAL PCP TEAM CHRONIC DISEASE VISIT due on 03/11/2021 DIABETES SCREEN due on 01/01/2023 COLONOSCOPY due on 12/16/2025 MENINGOCOCCAL CONJUGATE Completed Data reviewed Last 5 Encounter BP Readings: Date: BP: 03/11/2020 138/92 02/06/2020 132/78 03/21/2017 122/82 02/10/2016 121/84 11/22/2015 126/76 BMI Readings from Last 5 Encounters: 03/11/20 : 34.17 kg/m? 02/06/20 : 33.51 kg/m? 03/21/17 : 33.25 kg/m? 02/10/16 : 32.98 kg/m? 12/16/15 : 33.16 kg/m? Last 5 Encounter Wt Readings: Date: Wt: 03/11/2020 117.5 kg (259 lb) 02/06/2020 115.2 kg (254 lb) 03/21/2017 114.3 kg (252 lb) 02/10/2016 113.4 kg (250 lb) 11/22/2015 114 kg (251 lb 5.2 oz) Medication and allergy list reviewed, reconciled and updated 04/12/2020 ASSESSMENT/PLAN: 1. Essential hypertension - ICD9: 401.9, ICD10: I10 (primary diagnosis) - fair control - Continue current medication(s) - Encouraged dietary sodium restriction/DASH diet - Recommend home blood pressure monitoring, to bring results in on next visit - Reviewed risks of HTN and principles of treatment - Goal of BP <140/90 2. Low blood potassium - ICD9: 276.8, ICD10: E87.6 Recheck CMP - CMP (CMP) (FOR REMOTE [facility] USE) 3. Other chest pain - ICD9: 786.59, ICD10: R07.89 Chest pain of unclear etiology, patient with significant risk factor(s) of Hypertension and Obesity.Previous work-up completed which was unremarkable to this point. No active chest pain during today'sappointment. - Referral to Cardiology Patient will seek care in the emergency room for the following: Any concerns of chest pain pressure or palpitations; any chest pain that changes in severity, quality or location; chest pain that is associated with lightheadedness, dizziness, indigestion and/or shortness of breath, or that radiates to the jaw, neck, or back. The patient is instructed to call 911 for transport via EMS or head directly to the ER. The patient verbalizes understanding. Follow-up with primary care provider after cardiology consultation. - CONSULT TO CARDIOLOGY Andre Talavera DNP.CNP This note was completed with [email or web address] dictation software. Note was reviewed for accuracy. There may be minor misspellings or grammar miscues with [email or web address] Dictation. [place] [phone] Total appointment time on virtual with patient = 20 minutes documented in this encounter Assessments Diagnosis Essential hypertension - Primary Unspecified essential hypertension Pedal edema Edema Situational anxiety Other anxiety states Diagnosis Essential hypertension - Primary Unspecified essential hypertension Low blood potassium Hypopotassemia Other chest pain Reason for Referral Status Reason Specialty Diagnoses / Referred By Referred To Procedures Contact Contact Pending Review PCP Requested Cardiology Diagnoses Other chest pain Andre Talavera Referral Procedures CONSULT TO CARDIOLOGY NEW PATIENT VISIT LEVEL 5 (Siri), LUCIAN[address] [place] [address] Additional Source Comments FOR RECORDS PERTAINING TO PATIENTS WHO ARE OR HAVE BEEN ENROLLED IN A CHEMICAL DEPENDENCY/SUBSTANCE ABUSE PROGRAM, SOME INFORMATION MAY BE OMITTED. This clinical summary was aggregated from multiple sources. Caution should be exercised in using it in the provision of clinical care. This summary normalizes information from multiple sources, and as a consequence, information in this document may materially changethe coding, format and clinical context of patient data. In addition, data may be omittedin some cases. CLINICAL DECISIONS SHOULD BE BASED ON THE PRIMARY CLINICAL RECORDS. [facility] provides no warranty or guarantee of the accuracy or completeness of information in this document. UNRECOGNIZED CONTENT PROVIDED BELOW FOR UNRECOGNIZED SECTION No Status Records FoundNo Status Records Found UNRECOGNIZED CONTENT PROVIDED BELOW FOR UNRECOGNIZED SECTION INFORMATION SOURCE DATE CREATED AUTHOR AUTHOR'S ORGANIZATIO N 10/30/2019 [facility] DATE CREATED AUTHOR AUTHOR'S ORGANIZATIO N 04/12/2020 [facility] UNRECOGNIZED CONTENT PROVIDED BELOW FOR UNRECOGNIZED SECTION Source Comments In the event this information is protected by the Federal Confidentiality of Alcohol and Drug Abuse Patient Records regulations: The Federal rules restrict any use of the information to criminally investigate or prosecute any alcohol or drug abuse patient.[facility] event this information is protected by the Federal Confidentiality of Alcohol and Drug Abuse Patient Records regulations: The Federal rules restrict any use of the information to criminally investigate or prosecute any alcohol or drug abuse patient.[facility] UNRECOGNIZED CONTENT PROVIDED BELOW FOR UNRECOGNIZED SECTION Reason for Visit Reason Comments Follow Up Elevated BP, swelling in fee ts and ankles intermittently Reason Comments Follow Up
== END | disposition home or self-care (01) ==
LOC: LABSPEC 12:30
PROVIDERS: PCP Nurse Practitioner Family; Referring Provider Surgery; Visit Provider Surgery
DX: R51 Headache (principal); R06.02 Shortness of breath
CPT/HCPCS: 87635; G2023; U0002

== ENCOUNTER 2019-11-20 08:54 | Day surgery (SDC) | payer OTHER, SELFPAY ==
[2019-11-16 14:43] VITALS: BMI 33.7
[2019-11-20] VITALS (8 sets, daily range): BP systolic 135–162; BP diastolic 86–102; PULSE 76–91; RESP 16; TEMP 36.2–36.5; O2SAT 93–99; BMI 31.9
--- NOTE | 2019-11-20 07:16 | HP_ITS ---
Intake Vital Signs 11/16/19 BMI 33.7 11/16/19 Height 6 ft 1 in 11/16/19 Weight: 238 lb 4 oz 11/16/19 BMI 31.4 11/16/19 BP 133/86 H 11/16/19 Blood Pressure Location Rt brachial 11/16/19 Position Sitting 11/16/19 Respiration 18 11/16/19 Pulse 94 11/16/19 Temp 97.6 F L 11/16/19 Temp Source Temporal 11/16/19 Pulse Oximetry (%) 95 Intake Visit Reasons: Gallstones Chief Complaint: gallstones Quantitative Developer Required: No Is patient in pain?: No Allergies Sulfa (Sulfonamide Antibiotics) Allergy (Verified 11/17/19 10:16) Rash Medications omeprazole 40 mg capsule,delayed release 40 ea PO QHS 11/16/19 [History Confirmed 11/17/19] Triamcinolone Acetonide [Nasacort Aq Nasal [place]] 1 spray NASAL DAILY 11/17/19 [History Confirmed 11/17/19] [facility] Medical History GERD (gastroesophageal reflux disease) (Acute) Hemorrhoid (Acute) Sleep apnea (Acute) HTN (hypertension) (Chronic) Surgical History History of colonoscopy (Acute ~2015) History of hernia repair (Acute ~2009) History of tonsillectomy (Acute) History of wisdom tooth extraction (Acute) Family History Mother Diabetes Hypertension Social History (Updated 11/20/19 @ 07:[address] Andre Sanchez MD) Smoking Status: Never smoker HPI HPI HPI: ZEV ASIF, is a 59 M who presents to the office today for HPI HPI Surgical H&P: Yes HPI: ZEV ASIF, is a 59 M who presents to the office today for Evaluation of symptomatic cholelithiasis. Patient over the last 2 months has had increasing abdominal bloating right upper quadrant and right flank pain. He has been taking omeprazole with no benefit and just increased bloating. In late September she was diagnosed with a pneumonia and treated effectively with doxycycline and through that work-up it was discovered that he was positive with cholelithiasis without obstruction. He has had a rather exhaustive pulmonary and cardiac work-up. And his symptoms seem to be just more GI related now. ROS General General: Yes weight change and fatigue; no appetite, colon cancer, breast cancer or weakness HEENT HEENT: No difficulty swallowing, eye injury, eye surgery, swollen glands or hoarseness Endo Endocrine: No thyroid disease, diabetes mellitus, thyroid cancer, Hair loss, heat intolerance or cold intolerance Musc Musculoskeletal: No back problems, arthritis, rheumatoid arthritis, gout or joint pain Cardio Cardiovascular: Yes high blood pressure; no murmur, pacemaker, heart disease, atrial fibrillation, heart attack, heart stent, palpitations, shortness of breat with exertion or chest pain Psych Psychiatric: No depression, anxiety or hearing voices Resp Respiratory: Yes shortness of breath, Yes sleep apnea, No cough, No COPD, No asthma, No emphysema, No wheezing Gastro Gastrointestinal: Yes abdominal pain, No nausea or vomiting, No diarrhea, No constipation, No blood in stool, Yes acid reflux, Yes hemorrhoids, No ulcers, Yes gallbladder problem, No black,tarry stools Tre Hematologic: No blood thinners, No blood disorders, No bleeding, No anemia, No blood clots Neuro Neurologic: No weakness Exam Const General: no acute distress, well developed, well hydrated Orientation: oriented to person, oriented to place, oriented to time [facility] Head: normocephalic, atraumatic Ears: external ears normal Mouth: moist mucous membranes Eyes Sclera: sclerae normal Pupils: normal by confrontation Neck Neck: no lymphadenopathy noted Neck mass: No Thyroid: thyroid normal, symmetrical Chest Chest palpation & inspection: normal inspection of the chest Resp Effort & Inspection: normal respiratory effort Auscultation: clear to auscultation bilaterally Percussion: percussion normal Cardio Rate: regular rate Rhythm: regular rhythm Heart Sounds: no murmurs GI Palpation: soft, no hepatosplenomegaly, no masses, tender Auscultation: normal bowel sounds Rectal Exam: other Other: Rectal exam deferred. Extrem General: normal to inspection, no clubbing, cyanosis or edema Assessment & Plan Problems 1. Calculus of gallbladder with acute on chronic cholecystitis without obstruction K80.12 Plan Reviewed the anatomy with the patient and discussed the procedure: laparoscopic cholecystectomy with possible cholangiograms, possible open. Review risks including but not limited to bleeding, infection, hernia, bile leak, retained gallstones requiring another procedure ERCP- Endoscopic Retrograde Cholangiopancreatography, injury to another organ (bile ducts, common bile duct, small bowel, etc.) and conversion to an open procedure. All questions were answered. Orders Orders: SARS-CoV-2 (COVID 19) RT-PCR 11/17/19 R06.02, R51 Coding Level of Care Code Off vis,new,level 4 Diagnoses Calculus of gallbladder with acute on chronic cholecystitis without obstruction K80.12 ??Cholelithiasis location: gallbladder ??Cholecystitis acuity: acute and chronic 11/20/19 0716 <Electronically signed by Andre giron MD> Date _ Andre Sanchez MD
--- NOTE | 2019-11-20 09:01 | EKG12_ITS ---
Test Reason : PRE OP Blood Pressure : / mmHG Vent. Rate : 090 BPM Atrial Rate : 090 BPM P-R Int : 178 ms QRS Dur : 084 ms QT Int : 350 ms P-R-T Axes : 052 018 030 degrees QTc Int : 428 ms Normal sinus rhythm with sinus arrhythmia Inferior infarct , age undetermined Abnormal ECG When compared with ECG of 07-JUN-2017 22:39, No significant change was found Confirmed by PAO HURD, SUKHDEEP ([id number]), editor farm journal EULA DREW ([id number]) on 11/22/2019 10:33:55 AM Referred By: Andre Sanchez Confirmed By:SUKHDEEP CEDENO MD
[2019-11-20 09:19] LABS: Hematocrit 47.3 % (40-54); Hemoglobin 16.7 g/dL (13.0-16.5); Mean Corp Hgb Conc 35.3 g/dL (32-36); Mean Corpuscular Hgb 29.7 pg (27.0-32.0); Mean Corpuscular Volume 84.2 fL (80-94); Mean Platelet Vol. 9.9 fl (6.2-12.0); Platelet Count 225 K/mm3 (150-450); RBC Distribution Width CV 13.7 % (11.6-14.6); RBC Distribution Width SD 41.6 fl (35.1-43.9); Red Blood Count 5.62 M/mm3 (4.6-6.2); White Blood Count 8.2 K/mm3 (4.4-11.0)
[2019-11-20 09:30] LABS: Anion Gap 5 (5-15); BUN 10 mg/dL (7-18); BUN/Creat Ratio 10.3 RATIO (10-20); Calcium,Total 9.1 mg/dL (8.5-10.1); Chloride 106 mmol/L (98-107); Creatinine, Serum 0.97 mg/dL (0.70-1.30); EST Glomerular Filtration Rate 85 mL/min (>60); Est Glom Filt Rate - Afr Amer 103 mL/min (>60); Glucose 94 mg/dL (74-106); Potassium 3.7 mmol/L (3.5-5.1); Sodium Level 139 mmol/L (136-145)
[2019-11-20] MEDS: Lactated Ringers 1,000 ML 100 ML IV ×2 (09:54→12:45)
--- NOTE | 2019-11-20 10:15 | HP.PCM_ITS ---
History and Physical Date of Admission: 11/20/19 [facility] [address] [place], [place] [id number] OFFICE VISIT Date of Service: 11/16/19 MR#: [id number] Acct: [id number] Name: ZEV ASIF Rep #: [id number] : 1960 Provider: Dr. Cornelius Sanchez MD Age/Sex: 59/M Location: [facility] Status: Signed Intake Vital Signs 11/16/19 BMI 33.7 11/16/19 Height 6 ft 1 in 11/16/19 Weight: 238 lb 4 oz 11/16/19 BMI 31.4 11/16/19 BP 133/86 H 11/16/19 Blood Pressure Location Rt brachial 11/16/19 Position Sitting 11/16/19 Respiration 18 11/16/19 Pulse 94 11/16/19 Temp 97.6 F L 11/16/19 Temp Source Temporal 11/16/19 Pulse Oximetry (%) 95 Intake Visit Reasons: Gallstones Chief Complaint: gallstones Garage Worker Required: No Is patient in pain?: No Allergies Sulfa (Sulfonamide Antibiotics) Allergy (Verified 11/17/19 10:16) Rash Medications omeprazole 40 mg capsule,delayed release 40 ea PO QHS 11/16/19 [History Confirmed 11/17/19] Triamcinolone Acetonide [Nasacort Aq Nasal [place]] 1 spray NASAL DAILY 11/17/19 [History Confirmed 11/17/19] [facility] Medical History GERD (gastroesophageal reflux disease) (Acute) Hemorrhoid (Acute) Sleep apnea (Acute) HTN (hypertension) (Chronic) Surgical History History of colonoscopy (Acute ~2015) History of hernia repair (Acute ~2009) History of tonsillectomy (Acute) History of wisdom tooth extraction (Acute) Family History Mother Diabetes Hypertension Social History (Updated 11/20/19 @ 07:[address] Andre Sanchez MD) Smoking Status: Never smoker HPI HPI HPI: ZEV ASIF, is a 59 M who presents to the office today for HPI HPI Surgical H&P: Yes HPI: ZEV ASIF, is a 59 M who presents to the office today for Evaluation of symptomatic cholelithiasis. Patient over the last 2 months has had increasing abdominal bloating right upper quadrant and right flank pain. He has been taking omeprazole with no benefit and just increased bloating. In late September she was diagnosed with a pneumonia and treated effectively with doxycycline and through that work-up it was discovered that he was positive with cholelithiasis without obstruction. He has had a rather exhaustive pulmonary and cardiac work-up. And his symptoms seem to be just more GI related now. ROS General General: Yes weight change and fatigue; no appetite, colon cancer, breast cancer or weakness HEENT HEENT: No difficulty swallowing, eye injury, eye surgery, swollen glands or hoarseness Endo Endocrine: No thyroid disease, diabetes mellitus, thyroid cancer, Hair loss, heat intolerance or cold intolerance Musc Musculoskeletal: No back problems, arthritis, rheumatoid arthritis, gout or joint pain Cardio Cardiovascular: Yes high blood pressure; no murmur, pacemaker, heart disease, atrial fibrillation, heart attack, heart stent, palpitations, shortness of breat with exertion or chest pain Psych Psychiatric: No depression, anxiety or hearing voices Resp Respiratory: Yes shortness of breath, Yes sleep apnea, No cough, No COPD, No asthma, No emphysema, No wheezing Gastro Gastrointestinal: Yes abdominal pain, No nausea or vomiting, No diarrhea, No constipation, No blood in stool, Yes acid reflux, Yes hemorrhoids, No ulcers, Yes gallbladder problem, No black,tarry stools Tre Hematologic: No blood thinners, No blood disorders, No bleeding, No anemia, No blood clots Neuro Neurologic: No weakness Exam Const General: no acute distress, well developed, well hydrated Orientation: oriented to person, oriented to place, oriented to time [facility] Head: normocephalic, atraumatic Ears: external ears normal Mouth: moist mucous membranes Eyes Sclera: sclerae normal Pupils: normal by confrontation Neck Neck: no lymphadenopathy noted Neck mass: No Thyroid: thyroid normal, symmetrical Chest Chest palpation & inspection: normal inspection of the chest Resp Effort & Inspection: normal respiratory effort Auscultation: clear to auscultation bilaterally Percussion: percussion normal Cardio Rate: regular rate Rhythm: regular rhythm Heart Sounds: no murmurs GI Palpation: soft, no hepatosplenomegaly, no masses, tender Auscultation: normal bowel sounds Rectal Exam: other Other: Rectal exam deferred. Extrem General: normal to inspection, no clubbing, cyanosis or edema Assessment & Plan Problems 1. Calculus of gallbladder with acute on chronic cholecystitis without obstruction K80.12 Plan Reviewed the anatomy with the patient and discussed the procedure: laparoscopic cholecystectomy with possible cholangiograms, possible open. Review risks including but not limited to bleeding, infection, hernia, bile leak, retained gallstones requiring another procedure ERCP- Endoscopic Retrograde Cholangiopancreatography, injury to another organ (bile ducts, common bile duct, small bowel, etc.) and conversion to an open procedure. All questions were answered. Orders Orders: SARS-CoV-2 (COVID 19) RT-PCR 11/17/19 R06.02, R51 Coding Level of Care Code Off vis,new,level 4 Diagnoses Calculus of gallbladder with acute on chronic cholecystitis without obstruction K80.12 ??Cholelithiasis location: gallbladder ??Cholecystitis acuity: acute and chronic 11/20/19 0716 <Electronically signed by Andre giron MD> Date _ Andre Sanchez MD Cosigner Signature: Date (if applicable) CC: ORACLE APPLICATION ARCHITECT-Dawna Moore ~ I have re-examined the patient. There are no clinical changes since date of exam.
--- NOTE | 2019-11-20 11:00 | GALL_PTH ---
PATIENT: ZEV ASIF LOC: [facility] U#:[id number] AGE/SX: 59/M ROOM: RE11/20/[address]: Dr. Andre Sanchez MD : 1960 BED: DIS: 11/20/2019 SPEC #: [id number] RECD: 11/20/19 13:22 STATUS: MATTHEW HAROON #: [id number] LURDES: 11/20/19 11:[address]: Andre Sanchez DEPT: SURGICAL PATHOLOGY RECD BY: Chanell Li ENTERED: 11/21/19 08:59 SP TYPE: RELL DAVENPORT DR: VERA Marshall Tissues: Gallbladder, NOS Procedures: Surgery Specimen Level III HEADER OPERATION: Laparoscopic cholecystectomy PRE-OP DIAGNOSIS: Calculus of gallbladder with acute and chronic cholecystitis without obstruction TISSUE SUBMITTED: Gallbladder MICROSCOPIC DIAGNOSIS Gallbladder, cholecystectomy: Chronic cholecystitis and cholelithiasis. SJ:lavonne 11/22/19 MICROSCOPIC DESCRIPTION Slides are reviewed. GROSS DESCRIPTION Received is one container labeled with the patient's name and designated gallbladder. The specimen consists of a gallbladder measuring 7 cm in length and up to 2.5 cm in diameter. The external surface is pink-potts, smooth and glistening for the most part. Focally it is granular, hemorrhagic and contains cautery artifact. The gallbladder contains green-yellow mucoid bile and four variable sized yellowish-black stone and stone fragments measuring in aggregate 1 x 0.5 x 0.3 cm and 0.2 to 0.7 cm in greatest dimension. The mucosa is bile-stained and without any mass lesions. The gallbladder wall measures up to 0.7 cm in thickness. Increased amount of subserosal fat is noted. Taxi Driver sections from the gallbladder and the cystic duct are submitted in one cassette. / SAMMI:lavonne 11/21/19 TC:3 CPT: 69305
[2019-11-20] MEDS: Cefazolin 2 GM in 0.9% Normal Saline 100 ML IV (11:06)
--- NOTE | 2019-11-20 11:20 | PCM.OPRPT ---
Problem List (1) Calculus of gallbladder Status: Acute Qualifiers: Cholecystitis presence: with cholecystitis Cholecystitis acuity: acute and chronic Biliary obstruction: without biliary obstruction Qualified Code(s): K80.12 - Calculus of gallbladder with acute and chronic cholecystitis without obstruction Report of Operation Date of Procedure: 11/20/19 Pre-Operative Diagnosis: Symptomatic cholelithiasis Post-Operative Diagnosis: Same Surgery/Procedure Performed:: Laparoscopic cholecystectomy Type of Anesthesia:: General Anesthesiologist: Miguel Melchor Specimen's removed: Gallbladder Estimated Blood Loss (mL): < 25 cc Fluids Replaced: 1 L of LR. Description of Procedure: She was brought into the operating room. Placed in the supine position. Under excellent general trach intubation the abdomen was sterilely prepped and draped in usual fashion. Local was injected in the right upper quadrant incision was made varies needle was placed inside the abdomen the abdomen was insufflated to 15 torr. Visiport was used to gain access into the abdominal cavity without difficulty. Under direct visualization a subxiphoid #5 trochars placed inferior to this another #5 trochars placed and then in the right lower quadrant a #10/12 trocar was placed. Patient was placed in the head up and rotated to the left position fundus of the gallbladder was grasped and retracted in cephalad direction. Patient had a very contracted gallbladder adhesions on the liver were taken down with electrocautery. I dissected out the cystic duct placed hemoclips proximally and distally and ligated the duct. Identified the cystic artery placed hemoclips proximally distally and ligated the artery. Posterior cystic branch was also identified and I placed a Hemoclip on this deliver the gallbladder from the gallbladder bed with use of electrocautery. This was rather difficult since it was intrahepatic. But I did not have any spillage of bile or stones. Placed a specimen specimen bag and delivered through the 10/12 trocar without difficulty. Reinflated the abdomen. Used electrocautery on the liver bed for good pneumostasis. I placed some Dayron in my surgical bed. I remove the trochars under direct visualization. I closed the fascia of the 10/12 trocar with a [id number] stitch of 0 Vicryl. Skin incisions were closed with subcuticular stitches of 4-0 Monocryl. Steri-Strips were applied sterile dressings were applied and the patient tolerated the procedure well. - Admit VTE Documentation VTE Present on Admission: No VTE Mechan Device Prophylaxis: SCD's VTE Pharm Prophylaxis ordered?: No Reason prophylaxis not ordered:: Treatment Not Indicated [id number]: [id number] Laparoscopic cholecystectomy
--- NOTE | 2019-11-20 11:22 | DCINST_ITS ---
Discharge Diet: Light diet - advance as tolerated Discharge Activity: May Not Drive - for 2-3 days or while taking narcotic pain medications., - - Do not drive, work heavy equipment or sign legal documents for 24 hours. May shower in (days): 1 - with the bandage in place. Additional Activity Instructions:: Pain medication may cause nausea. You should typically eat light foods as you take your pain medications. Pain medication may also cause constipation. If this is a problem for you, please discuss with your doctor. Call your doctor if your incision/area has: Continuous Slow Oozing, Sudden Increased Bleeding, Increased Pain/ Swelling, Increased Redness, Foul Smelling Discharge Call your doctor if you observe: Fever of 101 or Higher Suture Line Care: Avoid Pulling/Pushing, Avoid Pinching/Bending Additional Dressing/Incision Instructions:: Leave operative bandaids on for 2 days. When you remove dressing, leave Steri-Strips on until your follow-up appointment, or until the Steri-Strips fall off on their own. Allergies/Adverse Reactions: Allergies Sulfa (Sulfonamide Antibiotics) Allergy (Verified 11/17/19 10:16) Rash Medications to take at Discharge omeprazole 40 mg capsule,delayed release 40 ea PO QHS 11/16/19 Triamcinolone Acetonide [Nasacort Aq Nasal [place]] 1 spray NASAL DAILY 11/17/19 Oxycodone HCl/Acetaminophen [Percocet 5/325] 1 - 2 tablet PO Q4H PRN PRN 6 Days #30 tablet 11/20/19 The following prescriptions were given: Oxycodone HCl/Acetaminophen [Percocet 5/325] 1 - 2 tablet PO Q4H PRN PRN 6 Days #30 tablet PRN Reason: Pain Transmission Status: Sent to [id number] Primary Care Physician: Inocencia Moore NP-C [Primary Care Provider] - Test Results: Test results from this visit will be discussed in further detail at your follow- up appointment, if applicable. Please Follow Up With: Andre Sanchez MD - Please call [phone] to schedule an appointment. When: 7 days after your surgery.
[2019-11-20] MEDS: Bupivacaine Mpf 0.5% 30 ML VIAL (12:05)
[2019-11-20] MEDS: oxyCODONE 5 MG Tablet 10 MG PO (14:17)
[2019-11-20] MEDS: Acetaminophen 325 MG Tablet 650 MG PO (14:18)
--- OUTSIDE RECORDS SUMMARY | 2020-04-23 08:20 | XMS RPT_ITS | CCD ---
:1960 External Reference #:[id number] Author Organization [employer] Care Team Providers [...] PROVIDER Consulting Unavailable PROVIDER Consulting Unavailable Teresa (Auto Painter Helper) Primary Care Provider Allergies Reported Allergen Reaction(s) Severity Date of Onset Location Sulfonamides (Antibiotic) [facility] Sulfonamides (Antibiotic) 07-20-2005 - [facility] (73203) Medications Medication Name Sig Date Prescriber Location Omeprazole omeprazole 40 mg capsule [facility] Provider [facility] (02849) Take 40 mg by mouth once daily. 0 Active Comment: Take 40 mg by mouth once nilo ly. Spironolactone spironolactone 03-11-2020 Jerry (Auto Painter Helper) [facility] (ALDACTONE) 25 mg tablet Teresa (44 195) Indications: Essential hypertension , Pedal edema Take 1 tablet by mouth once daily. 30 tablet 2 03/11/2020 Active Comment: Take 1 tablet by mouth once daily. Problems Category Problem Name Status Date Location Abdominal pain Left upper quadrant Active [facility] pain (32005) Allergic reactions Allergy status to Active 10-08-2019 - [facility] sulfonamides [facility] (96587) Anxiety disorders Anxiety Active [facility] (80052) Essential hypertension Essential (primary) Active 11-25-2013 - [facility] hypertension [facility] (68669) Fluid and electrolyte Hypokalemia Active 10-08-2019 - Jose R P omerene disorders [facility] (37393) Gastrointestinal Hematochezia Active [facility] (92828) Nonspecific chest pain Chest pain Active [facility] (75235) Other lower respiratory Shortness of breath Active 10-08-2019 - Jose R Pomerene disease [facility] (09159) Other upper respiratory Acute upper Active 2019 - Jose R Pomerene infections respiratory [facility] infection, (92285) unspecified Pneumonia (except that Pneumonia, Active 10-08-2019 - Jose R Pomerene caused by tuberculosis or unspecified organism [facility] sexually transmitted (40140) disease) Residual codes; Sleep apnea, Active 10-08-2019 - Jose R Pomeren e unclassified unspecified [facility] (58319) Residual codes; Edema of foot Active [facility] linic unclassified (93266) Results Result Name Value Range Unit Interpretation Flag Date Location progress on 2020-04 PROGRESS HNO ID: [id number] Normal 04-12-2020 [facility] Author: Andre (Arlen.Kathya) REYNA Talavera.KATHYA [facility] (75771) Service: ? Author Type: Nurse Practitioner Type: [...] agrees to the visit: Yes Patient Location: [facility] Jose Asif is a 59 year [...] Dr. Sanchez - COLONOSCOP W/ OR W/O [facility] SPEC 12/16/15 Colonoscopy - COLONOSCOPY 2002 - [...] Recheck CMP - CMP (CMP) (FOR REMOTE [facility] USE) 3. Other chest pain - ICD9: [...] tation. - CONSULT TO CARDIOLOGY Andre Talavera DNP.STITCHER FEEDER This note was completed with [employer] dictation software. Note was reviewed for accuracy. There may be minor misspellings or gr ammar miscues with [employer] Dictation. [facility] [address], [place] [address] Total appointment time on virtual with patient = 20 minutes progress on 2020-02 PROGRESS HNO ID: [id number] Normal 03-11-2020 [facility] Author: Jerry (Auto Painter Helper) [facility] ([id number]) Service: ? Author Type: Nurse Practitioner Type: [...] Dr. Sanchez - COLONOSCOP W/ OR W/O [facility] SPEC 12/16/15 Colonoscopy - COLONOSCOPY 2002 - [...] symptoms. Will continue to monitor. Jerry Lama APRN.STITCHER FEEDER To ER if develops chest pain, shortness of breath, or severe worsening of symptoms. Discussed risks, benefits, alternatives, and potential side effects of medications. Patient expressed understanding and agreed with the plan. Jerry Lama APRN.STITCHER FEEDER [address] [place] [address] cnov on 2020-03-11 CNOV Office Visit (FAMPWS) Normal 03-11-[address] [place] [address] JOSE Rojas ([id number]) 1960 [facility] Date Time Provider Department (73252) 03/11/20 8:40 AM [facility] your visit today, we recorded [...] Dr. Sanchez - COLONOSCOP W/ OR W/O [facility] SPEC 6/6/16 Colonoscopy - COLONOSCOPY 2002 - [...] agreed with the plan. Jerry Lama APRN.CNP [address] [place] [address] Jerry Lama APRN.CNP 03/11/2020 9:12 AM Signed Start taking your spironolactone on a daily basis, in the mo rning. Send me a [employer] message in 3-4 weeks w ith some [...] in the mo rning. Send me a [employer] message in 3-4 weeks with some recent [...] 03/20/20 progress on 2020-01 PROGRESS HNO ID: [id number] Normal 02-06-2020 [facility] Author: Dora Santiago (Alena) Lottie Nolasco ([id number]) Service: ? Author Type: Physician Film Waxer Type: Progress Notes Filed: 02/06/2020 7:32 AM [...] from the tooth. He did take ibuprofen nayr-pep-xigxjvr. No nausea or vomiting. No trouble opening [...] Dr. Sanchez - COLONOSCOP W/ OR W/O [facility] SPEC 12/16/15 Colonoscopy - COLONOSCOPY 2002 - [...] CROW Estrada on 2020-02-06 [email or web address] Normal 02-06-20 [facility] JOSE Rojas R ([id number]) 1960 [address] JEFF [facility] Date Time Provider Department (40667) 02/06/20 7:00 AM DORA LISA (ALENA) [facility] [...] the tooth. He did take ibuprofen o hqo-aqp-jgfaoqq. No nausea or vomiting. No trouble opening and closing his jaw. He has a [facility] appointment next week. Review of Systems HENT: [...] Dr. Sanchez - COLONOSCOP W/ OR W/O [facility] SPEC 12/16/15 Colonoscopy - COLONOSCOPY 2002 - [...] 02/06/20 progress on 2019-12 PROGRESS HNO ID: [id number] Normal 01-08-2020 [facility] Author: Jerry Harmon) Teresa Nolasco ([id number]) Service: ? Author Type: Nurse Practitioner Type: [...] agrees to the visit: Yes Patient Location: [facility] Jose Asif is a 59 year old male who is contacted today f or a virtual visit This is an established patient of MELQUIADES Marshall RN.STITCHER FEEDER Reports: States he is doing better for [...] on 2020-01-08 KAVON Telephone (FAMWS) Normal 01-08-2020 [facility] JOSE Rojas ([id number]) 1960 [address] JE[address] [facility] Date Time Provider Department (32107) 01/08/20 [facility]KATHYA[facility] During your visit today, we recorded the following informati on about you: Jerry Lama APRN.CNP 01/08/2020 5:01 PM Signed Please assist patient to schedule for his Holter monitor. LUCIANO Marshall [facility] 01/09/2020 2:26 PM Signed Spoke with patient who will check with [facility] and see if order can be faxed there for placement. Nohemi Brice 01/09/2020 3:00 PM Signed Patient is calling back and stated that info can be faxed to Allergies As of Date: 01/08/2020 Noted Allergy Reaction SULFA (SULFONAMIDE ANTIBIOTICS) 07/20/2005 Date Reviewed: 01/08/2020 Reviewed by: Jerry [facility] Hospital[facility] Lama - Fully Assessed Reason for [...] Albumin [Mass/Vol] 4.5 3.9-4.9 g/dL Normal 01-02-2020 [facility] (64290) Comment: Performed By: #### CMP ####C [address] [phone] ALP [Catalytic activity/Vol] 64 38-113 U/L Normal 0 01-02-2020 [facility] (60292) Comment: Performed By: #### CMP ####C [address] [phone]- [phone] ALT [Catalytic activity/Vol] 37 10-54 U/L Normal 0 01-02-2020 [facility] (98142) Comment: Performed By: #### CMP ####C [address] [phone]- [phone] Anion gap [Moles/Vol] 12 9-18 mmol/L Normal 01-02-20 [facility] (53354) Comment: Performed By: #### CMP ####C [address] [phone] AST [Catalytic activity/Vol] 26 14-40 U/L Normal 0 01-02-2020 [facility] (38381) Comment: Performed By: #### CMP ####C [address] [phone] Bilirubin [Mass/Vol] 0.7 0.2-1.3 mg/dL Normal 0 [facility] (22689) Comment: Performed By: #### CMP ####C [address] [phone] Calcium [Mass/Vol] 9.2 8.5-10.2 mg/dL Normal 01-02-2020 [facility] (83613) Comment: Performed By: #### CMP ####C [address] [phone]- [phone] Chloride [Moles/Vol] 99 97-105 mmol/L Normal 0 [facility] (42067) Comment: Performed By: #### CMP ####C [address] [phone] CO2 [Moles/Vol] 28 22-30 mmol/L Normal 01-02-2020 [facility] (01410) Comment: Performed By: #### CMP ####C [address] [phone] Creatinine [Mass/Vol] 0.88 0.73-1.22 mg/dL Normal 01-02-20 20 [facility] (53273) Comment: Performed By: #### CMP ####C [address] [phone]- [phone] eGFR- Amer. >60 Normal 01-02-2020 [facility] (72568) Comment: Performed By: #### CMP ####C [address] [phone] GFR/1.73 sq M predicted >60 mL/min/{1.73_m2} Normal 01-02-2020 [facility] among non-blacks [facility] (85564) (S/P/Bld) [Vol rate/Area] Comment: Result Comment: eGFR [...] actual GFR. Performed By: #### CMP ####C [facility] [place], [place] [phone]- [phone] Glucose [Mass/Vol] 85 74-99 mg/dL Normal 01-02-2020 [facility] (27776) Comment: Result Comment: The [place] Diabetes Association (ADA) provides guidance for cutoff [...] for diagnosis of diabetes. Reference: Standards of [facility] Care in Diabetes 2016, [place] Diabetes Association. Diabetes Care. 2016.39(Suppl 1). Performed By: #### CMP ####C [facility] [address] [place], [place] [phone] Potassium [Moles/Vol] 4.1 3.7-5.1 mmol/L Normal 01-02-20 [facility] (76829) Comment: Performed By: #### CMP ####C [facility] [place], [place] [phone] Protein [Mass/Vol] 7.5 6.3-8.0 g/dL Normal 01-02-2020 [facility] (11752) Comment: Performed By: #### CMP ####C [facility] [address] [place], [place] [phone]- [phone] Sodium [Moles/Vol] 139 136-144 mmol/L Normal 01-02-2020 [facility] (54007) Comment: Performed By: #### CMP ####C [facility] [place], [place] [phone]- [phone] Urea nitrogen [Mass/Vol] 12 9-24 mg/dL Normal 01-01 [facility] (71765) Comment: Performed By: #### CMP ####C [facility] [place], [place] [phone]- [phone] cnpn on 2019-12-01 CNPN Telephone (FAMPWS) Normal 12-01-2019 [facility] JOSE ASIF ([id number]) 1960 [facility] Date Time Provider Department (20876) 12/01/19 JERRY LAMA) KAYA During your visit [...] 12/21/19 progress on 2019-11 PROGRESS HNO ID: [id number] Normal 11-29-2019 [facility] Author: Jerry (Kathya) Teresa [facility] Service: ? ([id number]) Author Type: Nurse Practitioner Type: Progress Notes [...] agrees to the visit: Yes Patient Location: [facility] Jose Asif is a 59 year old male who is contacted today f or a phone visit This is an established patient of Dr. Jerry Lama APRN.STITCHER FEEDER Reports: He had surgery to remove his [...] Dr. Sanchez - COLONOSCOP W/ OR W/O [facility] SPEC 12/16/15 Colonoscopy - COLONOSCOPY 2002 - [...] exam as visit was completed over t Personal phone platform. Health Maintenance List HIV SCREENING [...] on 2019-11-22 CNPN Telephone (FAMWS) Normal 11-22-2019 [facility] JOSE Rojas ([id number]) 1960 [address] [facility] Date Time Provider Department (87537) 11/22/19 JERRY L[facility] ([facility] During your visit today, we recorded the following informati on about you: Estefany Whalen RN 11/22/2019 11:17 AM Signed Pt called, verified by name and birthdat e. Pt wanted to verify Upcoming apt on 11-29-2019. Appointment verified. Pt states he is working wit h his employer about extending short term disability 1 week longer an d will contact [facility] for records from gallbladder surgery Estefany Whalen RN Allergies As of Date: 11/22/2019 Noted Allergy Reaction SULFA (SULFONAMIDE ANTIBIOTICS) 07/20/2005 Date Reviewed: 11/09/2019 Reviewed by: Chiara (Anne-Marie) Anne-Marie Marino Reason for Visit: Patient Question [9057] Prescriptions as of 11/22/2019 Sig: LORAZEPAM 0.5 [...] 11/22/19 progress on 2019-11 PROGRESS HNO ID: [id number] Normal 11-14-2019 [facility] Author: Chiara (PartyWithMe) Anne-Marie Marino [facility] ([id number]) Service: ? Author Type: Motor Analyst Type: Progress Notes Filed: 11/14/2019 9:46 AM [...] * * *Final Report* * * Normal [facility] IVCON DATE OF EXAM: Nov 14 2019 9:43AM [facility] ([id number]) [facility] 0530 - CT ABD/PEL W IVCON [...] This c ould represent colitis 4. Cholelithiasis Continuous Process Tanner Rotary Drum: PSCB Transcribe Date/Time: Nov 14 2019 9:50A Dictated by : KAELA MALHOTRA DO This examination was interpreted and the report reviewed and electronically signed by: KAELA MALHOTRA DO on Nov 14 2019 10:26AM EST [id number] channing homen on 2019-11-14 CNPN Telephone (FAMPWS) Normal 11-14-2019 [facility] JOSE Rojas ([id number]) 1960 [address] [place] [facility] Date Time Provider Department (85290) 11/14/19 JERRY LAMA ([facility]) FAMPWS During your visit today, we [...] stress test is scheduled for 11/15 at [facility]. Carla Lama APRN.KATHYA 11/14/2019 3:39 PM Signed Great, thank you. Jerry Lama APRN.CNP Allergies As of Date: 11/14/2019 Noted Allergy Reaction SULFA (SULFONAMIDE ANTIBIOTICS) 07/20/2005 Date Reviewed: 11/09/2019 Reviewed by: Chiara Valiente) Anne-Marie Marino - Anna wright Reason for Visit: Results [95] Primary Visit Diagnosis:Calculus of gallbladder without cholecystitis without obstruction [K80.20] Order(s):CONSULT TO GENERAL SURGERY [9011] Order #: [id number]: 1 FUTURE Prescriptions as of 11/14/2019 [...] * * *Final Report* * * Normal [facility] - DATE OF EXAM: Nov 07 2019 11:33AM [facility] ([id number]) WRU 1232 - US ABD SPLEEN -NB [...] positioning and breath holding for the study Continuous Process Tanner Rotary Drum: OSMAN Transcribe Date/Time: Nov 07 2019 11:34A Dictated by : SANDI GARCIA MD This examination was interpreted and the report reviewed and electronically signed by: SANDI GARCIA MD on Nov 07 2019 11:41AM EST [id number] us abd right upper quadrant on 2019-11-07 US ABD RIGHT * * *Final Report* * * Normal 04- [facility] UPPER QUADRANT DATE OF EXAM: Nov 07 2019 11:33AM [facility] ([id number]) WRU 1032 - US ABD RIGHT UPPER [...] positioning and breath holding for the study Continuous Process Tanner Rotary Drum: OSMAN Transcribe Date/Time: Nov 07 2019 11:34A Dictated by : SANDI GARCIA MD This examination was interpreted and the report reviewed and electronically signed by: SANDI GARCIA MD on Nov 07 2019 11:41AM EST [id number] progress on 2019-10 PROGRESS HNO ID: [id number] Normal 11-07-2019 [facility] Author: Anne-Marie Rao (Tech) [facility] (84657) Service: ? Author Type: Motor Analyst Type: Progress Notes Filed: 11/07/2019 11:34 AM [...] on 2019-11-07 KATHYAN Telephone (FAMPWS) Normal 11-07-2019 [facility] JOSE ASIF ([id number]) 1960 [facility] Date Time Provider Department () 11/07/19 JERRY LAMA ([facility]) FAMPWS During your visit today, we recorded the following informati on about you: Estefany Whalen RN 11/07/2019 8:37 AM Signed Pt called, verified by name and birthdate. Pt states h e is having ultrasound today for his gallbladder. Pt states he has decided he wan ts to have stress test at [facility] so he has not scheduled it. Faxed order to [facility] and advised pt he will need [...] on 11/07/19 KAVON Telephone (FAMPWS) Normal 11-07-2019 [facility] JOSE Rojas ([id number]) 1960 [address] Nolas[place] Date Time Provider Department (84700) 11/07/19 JERRY LAMA (KATHYA) KAYA During your [...] distension (gaseous) [R14.0] Order(s):CT ABD/PEL W IVCON [3282426] Order #: [id number] FU TURE [] iv contrast (will be [...] on 2019-11-07 [facility]CO Letter Text Normal 11-07-2019 [facility] (44599) progress on 2019-10 PROGRESS HNO ID: [id number] Normal 11-02-2019 [facility] Author: Jerry Harmon) [facility] Service: ? ([id number]) Author Type: Nurse Practitioner Type: Progress Notes [...] agrees to the visit: Yes Patient Location: [facility] Jose Asif is a 59 year old male who is contacted today f or a virtual visit This is an established patient of Dr. 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 Reports: He does feel that he is [...] Laterality Date - COLONOSCOP W/ OR W/O [facility] SPEC 12/16/15 Colonoscopy - COLONOSCOPY 2002 - [...] on 2019-11-02 KAVON Telephone (FAMPWS) Normal 11-02-2019 [facility] JOSE ASIF ([id number]) 1960 [address] JE[address] [facility] Date Time Provider Department (27408) 11/02/19 JERRY LAMA (KATHYA) [facility] During your [...] 1:25 PM Signed Pt notified. 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 [...] 11/02/19 progress on 2019-10 PROGRESS HNO ID: [id number] Normal 10-30-2019 [facility] Author: Jerry Harmon) [facility] Service: ? ([id number]) Author Type: Nurse Practitioner Type: Progress Notes [...] agrees to the visit: Yes Patient Location: [facility] Jose Asif is a 59 year [...] Laterality Date - COLONOSCOP W/ OR W/O [facility] SPEC 12/16/15 Colonoscopy - COLONOSCOPY 2002 - [...] as visit was completed over the phone /[employer]. Health Maintenance List DTAP,TDAP,TD(1 - Tdap) due [...] his gallbladder to determine function. Jerry Lama APRN.STITCHER FEEDER emergency report on 2019-10-30 [facility] Normal 10-30-2019 J oel Dieterich REPORT [facility] EMERGENCY ROOM REPORT Hospital ([id number]) NAME ACCOUNT SEX AGE ADMIT DISCHARGE PT MED. RECORD# NUMBER DATE DATE TYPE JOSE ASIF [id number] [place] 59 10/19/19 10/19/19 3 [id number] ROOM: ER DATE OF : 1960 DICTATING PHYSICIAN: Michael Kincaid CHIEF COMPLAINT: Shortness of breath with chest tightness an d dizziness. HISTORY OF PRESENT ILLNESS: This is the patient's third visit to the ED over the past couple of weeks for jennifer oing symptoms. 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 He does appear to have zsls-cy-ceswirep hyperventilation which is probably contributing to wilman [...] Michael Kincaid MD 10/19/19 14:09 JOB #: [id number] Transcribed By: smith 10/20/19 12:14 Electronically signed by: MIQUEL Kincaid M.D. 10/30/19 07:10 Page 2 of 2 JOSE ASIF Emergency Room Report emergency report on 2019-10-28 EMERGENCY REPORT [facility] Normal 10-27 [facility] ospital EMERGENCY ROOM REPORT ([id number]) NAME ACCOUNT SEX AGE ADMIT DISCHARGE PT MED. RECORD# NUMBER DATE DATE TYPE JOSE ASIF [id number] [place] 59 10/08/19 10/08/19 3 [id number] ROOM: ER DATE OF : 1960 DICTATING [...] Jessica Reed DO 10/08/19 19:14 JOB #: [id number] Transcribed By: am 10/08/19 19:52 Electronically signed by: E-Sign: Jessica Reed D.O. 10/28/19 10:30 Page 2 of 2 JOSE ASIF Emergency Room Report cnpn on 2019-10-[facility]) Normal 10-25-2019 [facility] JOSE ASIF ([id number]) 1960 [address] [facility] Date Time Provider Department (76960) 10/25/19 JERRY LAMA ([facility]) JONELWS During your visit today, we [...] day to , definitely by Wednesday. If [facility] is unable to perform this testing, I believe [facility] is still doing testing. Please assist him to schedule this. LUCIANO Marshall Ma 10/25/2019 5:03 PM Signed Please see message below. Help assist pt to schedule PFT's Pt notified of results Deidre English Pss 10/26/2019 1:59 PM Signed Patient called back and stated that the soonest he could get into [facility] for the Pulmonary Function Te sting would be October 30. If this is a problem, the patient would like to be abigail led back at [phone]. He scheduled the appointment incase that was [...] [R53.1] Order(s):SPIROMETRY - BASELINE AND POST DILATOR [5763747] Order #: [id number] FUTURE COMP METABOLIC PANEL [SQCMP] Order #: [id number] FUTURE URINE CYTOLOGY VOIDED [[id number]] Order #: [id number] Prescriptions as of 10/25/2019 Sig: TRIAMTERENE 37.5 [...] Troponin T.cardiac <0.010 0.000-0.029 ug/L Normal 0 [facility] [Mass/Vol] [facility] ([id number]) Comment: Performed By: #### CRP, MBE, NTBNP, JO, DDMER #### [facility] Laboratorie s [address] [place], [place] [phone] tb by quantiferon o n 2019-10-24 Interpretation No evidence of current or Normal 10-24-2019 [facility] previous infection with [facility] ([id number]) Mycobacterium tuberculosis. Comment: Performed By: #### INFTBP ## ##[facility] [address] [place], [place] [phone]- [phone] Mitogen minus Nil 3.92 Normal 10-24-2019 [facility] (77619) Comment: Performed By: #### INFTBP ## ##[facility] [address] [place], [place] [phone]- [phone] TB NIL 0.02 IU/mL Normal 10-24-2019 [facility] (80610) Comment: Performed By: #### INFTBP ## ##[place] [id number] [phone] TB Result Negative Negative Normal 10-24-2019 [facility] (32294) Comment: Performed By: #### INFTBP ## ##[place] [id number] [phone] TB1 Ag minus Nil 0.00 <0.35 IU/mL Normal 10-24-2019 [facility] (29616) Comment: Performed By: #### INFTBP ## ##[place] [id number] [phone] TB2 Ag minus Nil 0.01 <0.35 IU/mL Normal 10-24-2019 [facility] (62575) Comment: Performed By: #### INFTBP ## ##[place] [id number] [phone] progress on 2019-10 PROGRESS HNO ID: [id number] Normal 10-24-2019 [facility] Author: Anne-Marie Benavides (Tech) [facility] (22648) Service: ? Author Type: Motor Analyst Type: Progress Notes Filed: 10/24/2019 1:52 PM [...] B Natr Peptide <50 <125 Normal 10-24-2019 [facility] (75151) Comment: Performed By: #### CRP, MBE, NTBNP, JO, DDMER #### [facility] Labor[facility] s [address] [place], [place] [address] d dimer on D dimer 210 <500 ng/mL FEU Normal 10-24-2019 [facility] (55531) Comment: Result Comment: 500 ng/mL FE U [...] By: #### CRP, MBE, NTBNP, JO, DDMER ####[facility] [address] [place], [place] [phone] ct chest w ivcon pe on 2019-10-24 CT CHEST W * * *Final Report* * * Normal 2019 [facility] IVCON PE DATE OF EXAM: Oct 24 2019 1:26PM [facility] ([id number]) [facility] 0540 - CT CHEST W IVCON [...] on Abdominal CT. JACR 20 10; 17:754 Continuous Process Tanner Rotary Drum: OSMAN Transcribe Date/Time: Oct 24 2019 1:29P Dictated by : BLACK CHAVEZ MD This examination was interpreted and the report reviewed and electronically signed by: BLACK CHAVEZ MD on Oct 24 2019 1:42PM EST [id number] comp metabolic panel on 2019-10-24 Albumin [Mass/Vol] 4.2 3.9-4.9 g/dL Normal 10-24-2019 [facility] (63458) ALP [Catalytic 60 38-113 U/L Normal 10-24-2019 [facility] activity/Vol] [facility] and (27019) ALT [Catalytic 62 10-54 U/L High 10-24-2019 [facility] activity/Vol] [facility] and (29490) Anion gap 12 9-18 mmol/L Normal 10-24-2019 [facility] [Moles/Vol] [facility] (30458) AST [Catalytic 26 14-40 U/L Normal 10-24-2019 [facility] activity/Vol] [place] and (60006) Bilirubin [Mass/Vol] 0.6 0.2-1.3 mg/dL Normal 0 [facility] (44861) Calcium [Mass/Vol] 8.8 8.5-10.2 mg/dL Normal 10-24-2019 [facility] (69308) Chloride [Moles/Vol] 94 97-105 mmol/L Low 0 [facility] (81782) CO2 [Moles/Vol] 21 22-30 mmol/L Low 10-24-2019 [facility] (98773) Creatinine 0.86 0.73-1.22 mg/dL Normal 10-24-2019 [facility] [Mass/Vol] [facility] (01715) eGFR- Amer. >60 Normal 10-24-2019 [facility] (01936) GFR/1.73 sq M >60 mL/min/{1.73_m Normal 10-24-2019 [facility] predicted among 2} Bismrak hampton (54416) non-blacks MDRD (S/P/Bld) [Vol rate/Area] Comment: Result [...] Glucose [Mass/Vol] 89 74-99 mg/dL Normal 10-24-2019 [facility] (14939) Comment: Result Comment: The [place] [employer] (ADA) provides guidance for cutoff [...] for diagnosis of diabetes. Reference: Standards of [facility] Care in Diabetes 2016, [place] [employer]. Diabetes Care. 2016.39(Suppl 1). Potassium [Moles/Vol] 3.6 3.7-5.1 mmol/L Low 10-24-19 20 [facility] (42376) Protein [Mass/Vol] 6.9 6.3-8.0 g/dL Normal 10-24-2019 [facility] (98022) Sodium [Moles/Vol] 127 136-144 mmol/L Low 10-24-2019 [facility] (40442) Urea nitrogen [Mass/Vol] 8 9-24 mg/dL Low 10-23 [facility] (31020) ckmb on 2019-10-24 CK.MB [Mass/Vol] 1.8 <7.8 ng/mL Normal 10-24-2019 [facility] (22847) Comment: Performed By: #### CRP, MBE, NTBNP, JO, DDMER #### [facility] [address] [place] [id number] cbc and differential on 2019-10-24 Abs Baso 0.06 <0.11 k/uL Normal 10-24-2019 [facility] (91408) Abs Collin 0.69 <0.87 k/uL Normal 10-24-2019 [facility] (07816) Abs Neut 8.17 1.45-7.50 k/uL High 10-24-2019 [facility] (71825) Absolute nRBC <0.01 <0.01 Normal 10-24-2019 [facility] (42006) Basophils/100 WBC 0.6 % Normal [facility]-24-2019 [facility] (Bld) [facility] (18284) DTYPE Auto Diff Normal 10-24-2019 [facility] (07523) Eosinophils (Bld) 0.08 <0.46 k/uL Normal 10-24-2019 [facility] [#/Vol] [facility] (31539) Eosinophils/100 WBC 0.8 % Normal 10-24-2019 [facility] (Bld) [facility] (61358) Erythrocyte 13.1 11.5-15.0 % Normal 10-24-2019 [facility] distribution width C [facility] (40444) (RBC) [Ratio] Hematocrit (Bld) 48.3 39.0-51.0 % Normal 10-24-2019 [facility] [Volume fraction] [facility] (17849) Hemoglobin (Bld) 17.5 13.0-17.0 g/dL High 10-24-2019 [facility] [Mass/Vol] [facility] (57997) Lymphocytes (Bld) 1.63 1.00-4.00 k/uL Normal 10-24-2019 [facility] [#/Vol] [facility] (06071) Lymphocytes/100 WBC 15.3 % Normal 10-24-2019 [facility] (Bld) [facility] (69006) MCH (RBC) [Entitic 29.4 26.0-34.0 pG Normal 10-24-2019 [facility] mass] [facility] (50042) MCHC (RBC) 36.2 30.5-36.0 g/dL High 10-24-2019 [facility] [Mass/Vol] [place] (31656) MCV (RBC) [Entitic 81.2 80.0-100.0 fL Normal 10-24-2019 [facility] vol] [facility] (60641) Monocytes/100 WBC 6.5 % Normal 10-24-2019 [facility] (d) [facility] (04887) Neutrophils/100 WBC 76.8 % Normal 10-24-2019 [facility] ([facility]) [facility] (03430) NRBCs 0.0 0 /100 WBC Normal 10-24-2019 [facility] (40867) Platelet mean volume 9.6 9.0-12.7 fL Normal 0 [facility] ([facility]) [Entitic vol] [facility] (17864) Platelets (d) 266 150-400 k/uL Normal 10-24-2019 [facility] [#/Vol] [place] (33286) RBC (Bld) [#/Vol] 5.95 4.20-6.00 m/uL Normal 10-24-2019 C [facility] (52722) WBC (Bld) [#/Vol] 10.63 3.70-11.00 k/uL Normal 10-24-2019 [facility] (16696) c-reactive protein on 2019-10-24 CRP [Mass/Vol] 0.3 <0.9 mg/dL Normal 10-24-2019 [facility] (82941) Comment: Performed By: #### CRP, MBE, NTBNP, JO, DDMER #### [facility] [address] [place], [place] [id number] progress on 2019-10 PROGRESS HNO ID: [id number] Normal 10-23-2019 [facility] Author: Jerry (Kathya) TeresaFormerly [facility] (53893) Service: ? Author Type: Nurse Practitioner Type: [...] agrees to the visit: Yes Patient Location: [facility] Jose Asif is a 59 year old male who is contacted today f or a phone visit This is an established patient of Nannette Bill. Reports: Started on 09/30 with noticeable SOB and continued t o worsen-is winded going up stairs, any activity. On 10/03, 10/07 was seen in the Emergency Room in [facility]. They did EKG, lab work, kaci st [...] Laterality Date - COLONOSCOP W/ OR W/O [facility] SPEC 12/16/15 Colonoscopy - COLONOSCOPY 2002 - [...] on 2019-10-23 KATHYAN Telephone (FAMWS) Normal 10-23-2019 [facility] JOSE ASIF ([id number]) 1960 Nannette JEFF [facility] Date Time Provider Department ([id number]) 10/23/19 J[facility]Y LAMA [facility] your visit today, we recorded [...] assist him to schedule this. Jerry Lama APRN.STITCHER FEEDER Marybel Ignacio Ma 10/23/2019 5:13 PM Signed Patient notified. Please assist pt with CT scan. See below message Keith Cabrera [facility] 10/24/2019 12:57 PM Signed Patient scheduled for October 24, 2019. Patient voiced underst anding. Allergies As of Date: 10/23/2019 Noted Allergy Reaction SULFA (SULFONAMIDE ANTIBIOTICS) 07/20/2005 Date Reviewed: 10/23/2019 Reviewed by: Jerry (Auto Painter Helper) Teresa - Fully Assessed Reason for Visit: [...] 2.0 0.5 - 2.0 mmol/L Normal 10-19-2019 [facility] ( 64080) Comment: Performed By: #### [id number] ## ##[facility],[address] [place] [address] 46288 d-dimer, quantitative on 2019-10-19 D-DIMER QUANT 177 0 - 230 ng/ml Normal 10-19-2019 [facility] (02348) Comment: Performed By: #### [id number] ## ##[facility],[address] [place] [address] 55695 D-DIMER, QUANTITATIVE Normal 10-19-19 [facility] (09009) Comment: Result Comment: QUANT D-DIME R Performed By: #### [id number] ## ##[facility],[address] [place] [address] 20620 cmp with egfr on 29-10-08 Age - Reported 59 years Normal 10-19-2019 [facility] (65324) Comment: Performed By: #### [id number] ## ##[facility],[address] [place] [address] 86839 Albumin [Mass/Vol] 4.6 3.4 - 4.8 g/dL Normal 10-19-2019 [facility] ( 00109) Comment: Performed By: #### [id number] ## ##[facility],[address] [place] [address] 68262 Albumin/Globulin [Mass 1.4 0.9 - 1.6 {ratio} Normal [address] [place] [address] (04208) Comment: Performed By: #### [id number] ## ##[facility],[address] [place] [address] 58473 ALK PHOS 56 38 - 126 U/L Normal 10-19-2019 [facility] (97357) Comment: Performed By: #### [id number] ## ##[facility],[address] [place] [address] 86151 ALT/SGPT 55 10 - 40 U/L High 10-19-2019 [facility] (06652) Comment: Performed By: #### [id number] ## ##[facility],[address] [place] [address] 99979 Anion gap [Moles/Vol] 15 10 - 20 mmol/L Normal 10-19-19 [facility] ( 28986) Comment: Performed By: #### [id number] ## ##[facility],[address] [place] [address] 39581 AST/SGOT 27 13 - 39 U/L Normal 10-19-2019 [facility] (92789) Comment: Performed By: #### [id number] ## ##[facility],[address] [place] [address] [place] [address] B/C RATIO 14 0 - 30 ratio Normal 10-19-2019 [facility] (63716) Comment: Performed By: #### [id number] ## ##[facility],[address] [place] [address] [place] [address] Bilirubin [Mass/Vol] 0.8 0.0 - 1.5 mg/dl Normal 0 [facility] ( 03918) Comment: Performed By: #### [id number] ## ##[facility],[address] [place] [address] 70164 Calcium [Mass/Vol] 9.3 8.6 - 10.2 mg/dl Normal 10-19-2019 [facility] ( 72408) Comment: Performed By: #### [id number] ## ##[facility],[address] [place] [address] 91780 Chloride [Moles/Vol] 99 98 - 107 mmol/L Normal 0 [facility] ( 89839) Comment: Performed By: #### [id number] ## ##[facility],[address] [place] [address] 42208 CO2 [Moles/Vol] 21.2 21.0 - 31.0 mmol/L Normal 10-19-2019 [facility] ( 81271) Comment: Performed By: #### [id number] ## ##[facility],[address] [place] [address] [place] [address] Creatinine [Mass/Vol] 0.9 0.7 - 1.3 mg/dl Normal 10-19-19 20 [facility] ( 81934) Comment: Performed By: #### [id number] ## ##[facility],[address] [place] [address] 79840 GFR/1.73 sq M predicted among Normal 10-19-2019 [facility] non-blacks MDRD (S/P/Bld) [Vol Hospital (99736) rate/Area] Comment: Result Comment: COMPREHENSIV E METABOLIC PANEL Performed By: #### [id number] ## ##[facility],[address] [place] [address] 24363 GFR/1.73 sq M >60 60 - 999 mL/min/{1.73_m2} Normal 0 [facility] among [facility] non-blacks MDRD (000 00) (S/P/Bld) [Vol [...] OF AGE AND OLDER. Performed By: #### [id number] ## ##[address] [address] Globulin (S) [Mass/Vol] 3.2 1.5 - 3.8 G/DL Normal 2019 [facility] ( 06068) Comment: Performed By: #### [id number] ## ##[address] [address] Glucose [Mass/Vol] 106 74 - 106 mg/dl Normal 10-19-2019 [facility] ( 03599) Comment: Performed By: #### [id number] ## ##[address] [address] Potassium [Moles/Vol] 3.2 3.5 - 5.1 mmol/L Low 10-19-19 20 [facility] ( 53221) Comment: Performed By: #### [id number] ## ##[address] [address] Protein [Mass/Vol] 7.8 6.4 - 8.3 g/dl Normal 10-19-2019 [facility] ( 12976) Comment: Performed By: #### [id number] ## ##[facility],[address] [place] [address] 22997 Sodium [Moles/Vol] 132 136 - 145 mmol/l Low 10-19-2019 [facility] ( 83452) Comment: Performed By: #### [id number] ## ##[facility],[address] [place] [address] 38276 Urea nitrogen [Mass/Vol] 13 6 - 20 mg/dl Normal 10-18 [facility] ( 21314) Comment: Performed By: #### [id number] ## ##[facility],[address] [place] [address] 44071 chest 1 view on 0-10-18 CHEST 1 VIEW [facility] Normal 0 [facility] o[facility]ital [address] [place] [address] (23857) Patient: JOSE ASIF Phone#: : 1960 Age: 59 Gender: M Pt. Type: ER Account: [id number] Location: [facility] Ordering: MICHAEL KINCAID Exam Date: 10/19/2019/11:52 Family Phys: VIKTOR HORTON Charge Code: 595863 Physician: [place] Order #: [id number] DLP Dose#: PROCEDURE: X-RAY CHEST 1 VIEW COMPARISON: [facility], XR, CHEST 2 VIEWS, 0, 3:33. [facility], XR, CHEST 2 VIEWS, 10/08/2019, 17:06. INDICATIONS: [...] - 0.10 x10EE3/UL Normal 10-19-2019 Jayro angeline Dieterich [#/Vol] [facility] (13086) Comment: Performed By: #### [id number] ## ##[address] [address] Basophils/100 WBC (Bld) 0.2 0.0 - 2.0 % Normal 2019 [facility] ( 30359) Comment: Performed By: #### [id number] ## ##[address] [address] CBC + DIFF Normal 10-19-2019 [facility] (65257) Comment: Result Comment: CBC-COMPLETE BLOOD COUNT Performed By: #### [id number] ## ##[address] [address]83 Eosinophils (Bld) 0.00 0.00 - 0.50 x10EE3/UL Normal 10-19-2019 [facility] [#/Vol] [facility] (19058) Comment: Performed By: #### [id number] ## ##[address] [address] Eosinophils/100 WBC (Bld) 0.4 0.0 - 7.0 % Normal [facility] ( 00434) Comment: Performed By: #### [id number] ## ##[address] [address] Erythrocyte distribution 13.6 12.0 - 15.6 % Normal [facility] (RBC) [Ratio] Hospital (72253) Comment: Performed By: #### [id number] ## ##[address] [address] Hematocrit (Bld) [Volume 50.7 40.0 - 52.0 % Normal [facility] ( 84743) Comment: Performed By: #### [id number] ## ##[facility],[address] [place] [address] 10423 Hemoglobin (Bld) 17.9 13.0 - 17.5 g/dl High 10-19-2019 [facility] [Mass/Vol] [facility] (08689) Comment: Performed By: #### [id number] ## ##[facility],[address] [place] [address] 88142 Lymphocytes (Bld) 1.70 0.80 - 2.80 x10EE3/UL Normal 10-19-2019 [facility] [#/Vol] [facility] ospital (41250) Comment: Performed By: #### [id number] ## ##[address] [address]107 Lymphocytes/100 WBC (Bld) 14.2 20.0 - 45.0 % Low [facility] ( 62830) Comment: Performed By: #### [id number] ## ##[address] [address] MANUAL DIFF N/A Normal 10-19-2019 [facility] (29431) Comment: Performed By: #### [id number] ## ##[address] [address]48 MCH (RBC) [Entitic mass] 29 27 - 33 pg Normal 10-18 [facility] ( 64214) Comment: Performed By: #### [id number] ## ##[address] [address]95 MCHC (RBC) [Mass/Vol] 35 32 - 36 X10 3 Normal 10-19-19 20 [facility] ( 87102) Comment: Performed By: #### [id number] ## ##[address] [address]607 MCV (RBC) [Entitic vol] 83 81 - 98 fl Normal 2019 [facility] ( 43979) Comment: Performed By: #### [id number] ## ##[facility],[address] [place] [address] 70130 Monocytes (Bld) 0.80 0.20 - 1.00 x10EE3/UL Normal 10-19-2019 [facility] [#/Vol] [facility] (19127) Comment: Performed By: #### [id number] ## ##[facility],[address] [place] [address] 29490 MONOS % 6.6 0.0 - 10.0 % Normal 10-19-2019 [facility] (51231) Comment: Performed By: #### [id number] ## ##[address] [address]28 Morphology Gerardo (Bld) [Interp] N/A Normal 10-19-2019 [facility] ( 25019) Comment: Performed By: #### [id number] ## ##[address] [address]291 Neutrophils (Bld) 9.40 1.50 - 7.10 x10EE3/UL High 10-19-2019 [facility] [#/Vol] [facility] (89641) Comment: Performed By: #### [id number] ## ##[address] 13434 Neutrophils/100 WBC (Bld) 78.6 46.0 - 76.0 % High [facility] ( 38165) Comment: Performed By: #### [id number] ## ##[address] 83534 Platelet mean volume 8.0 6.4 - 10.5 fl Normal 10-19-19 20 [facility] (Bld) [Entitic vol] [facility] (43019) Comment: Result Comment: AUTOMATED DI FFERENTIAL Performed By: #### [id number] ## ##[address] [address]64 Platelets (Bld) 293 150 - 450 x10EE3/UL Normal 10-19-2019 [facility] [#/Vol] [facility] Maryann dalaltal (56234) Comment: Performed By: #### 100270 ## ##[facility],[address] [place] [address] 75032 RBC (Bld) [#/Vol] 6.12 4.50 - 6.00 x 10EE6/UL High 0 [facility] ( 28211) Comment: Performed By: #### [id number] ## ##[facility],[address] [place] [address] 25042 WBC (Bld) [#/Vol] 11.9 4.5 - 10.8 x 10EE3/UL High 10-19-2019 [facility] ( 88540) Comment: Performed By: #### 601892 ## ##[facility],[address] [place] [address] 60649 bnp (b-type natriuretic peptide) on 2019-10-19 Natriuretic peptide B (Bld) 10 1 - 100 pg/ml Normal [facility] [Mass/Vol] [facility] (57938) Comment: Performed By: #### 480857 ## ##[facility],[address] [place] [address] 31794 arterial blood gas analysis on 2019-10-19 ALLENS TEST + Normal 10-19-2019 [facility] (54273) Comment: Result Comment: { TIME LLOYD D Performed By: #### [id number] ## ##[facility],[address] [place] [address] 57837 ARTERIAL BLOOD GAS ANALYSIS Normal [facility] (77894) Comment: Result Comment: ARTERIAL BLO OD GAS Performed By: #### [id number] ## ##[facility],[address] [place] [address] 97756 Base excess Calc (Bld) -4 -2 - 3 mmol/L Low 020 [facility] [Moles/Vol] [facility] (46617) Comment: Performed By: #### [id number] ## ##[facility],[address] [place] [address] 20284 HCO3 (Bld) [Moles/Vol] 19 22 - 26 mmol/L Low 020 [facility] ( 37251) Comment: Performed By: #### 099192 ## ##[facility],[address] [place] [address] 94337 MODALITY RA Normal 10-19-2019 [facility] (94101) Comment: Performed By: #### [id number] ## ##[facility],[address] [place] [address] 57272 Oxygen (Bld) [Partial 99 80 - 105 mm Hg Normal 10-19-19 20 [facility] ( 83260) Comment: Performed By: #### [id number] ## ##[address] [address] PCO2 22 35 - 45 mm Hg Low 10-19-2019 [facility] (72606) Comment: Performed By: #### [id number] ## ##[address] [address] pH (Bld) 7.54 7.35 - 7.45 [pH] High 10-19-2019 [facility] (18091) Comment: Performed By: #### 703431 ## ##[address] [address]231 SAMPLE SITE RR Normal 10-19-2019 [facility] (80714) Comment: Performed By: #### 392747 ## ##[address] [address] SaO2 99 95 - 98 High 10-19-2019 [facility] (67400) Comment: Result Comment: TIME RESULT CALLED _. 10/19/19.1202.JHV. { FIO2/LPM .21 Performed By: #### [id number] ## ##[facility],[address] [place] [address] 77080 VENT N/A Normal 10-19-2019 [facility] (10571) Comment: Performed By: #### [id number] ## ##[facility],[address] [place] [address] 50747 troponin on 2019-09 Troponin I.cardiac 0.02 0.00 - 0.05 ng/ml Normal 0 [facility] [Mass/Vol] [facility] (93991) Comment: Result Comment: Elevated tro ponin (above [...] as heterophile antibodi es). Performed By: #### 473484 ## ## [facility],[address] [place] [address] 22293 lactate on Lactate [Moles/Vol] 1.2 0.5 - 2.0 mmol/L Normal 10-08-2019 [facility] ( 19292) Comment: Performed By: #### 821417 ## ## [facility],[address] [place] [address] 78141 d-dimer, quantitative on 2019-10-08 D-DIMER QUANT 157 0 - 230 ng/ml Normal 10-08-2019 [facility] (52703) Comment: Performed By: #### 937903 ## ## [facility],[address] [place] [address] 50836 D-DIMER, QUANTITATIVE Normal 10-08-19 20 [facility] (51008) Comment: Result Comment: QUANT D-DIME R Performed By: #### [id number] ## ## [facility] [facility] 47814 cmp with egfr on 28-09-28 Age - Reported 59 years Normal 10-08-2019 [facility] (63476) Comment: Performed By: #### 540400 ## ## [facility] [facility] 27148 Albumin [Mass/Vol] 4.8 3.4 - 4.8 g/dL Normal 10-08-2019 [facility] ( 22904) Comment: Performed By: #### [id number] ## ## [facility],[address] [place] [address] 68259 Albumin/Globulin [Mass 1.5 0.9 - 1.6 {ratio} Normal 020 [facility]] [facility] (31777) Comment: Performed By: #### 707872 ## ## [facility],[address] [place] [address] 84412 ALK PHOS 50 38 - 126 U/L Normal 10-08-2019 [facility] (44912) Comment: Performed By: #### [id number] ## ## [facility] 92622 ALT/SGPT 61 10 - 40 U/L High 10-08-2019 [facility] (96150) Comment: Performed By: #### [id number] ## ## [facility] 46075 Anion gap [Moles/Vol] 16 10 - 20 mmol/L Normal 10-08-19 20 [facility] ( 11996) Comment: Performed By: #### 850350 ## ## [facility] [facility] 13435 AST/SGOT 33 13 - 39 U/L Normal 10-08-2019 [facility] (38035) Comment: Performed By: #### [id number] ## ## [facility],[address] [facility] 08123 B/C RATIO 14 0 - 30 ratio Normal 10-08-2019 [facility] (75613) Comment: Performed By: #### [id number] ## ## [facility],[address] [facility] 08656 Bilirubin [Mass/Vol] 1.0 0.0 - 1.5 mg/dl Normal 0 [facility] ( 23121) Comment: Performed By: #### [id number] ## ## [facility] [facility] 88039 Calcium [Mass/Vol] 10.3 8.6 - 10.2 mg/dl High 10-08-2019 [facility] ( 80638) Comment: Performed By: #### [id number] ## ## [facility] [facility] 99999 Chloride [Moles/Vol] 96 98 - 107 mmol/L Low 0 [facility] ( 50933) Comment: Performed By: #### [id number] ## ## [facility],[address] [place] [address] CO2 [Moles/Vol] 23.6 21.0 - 31.0 mmol/L Normal 10-08-2019 [facility] ( 53497) Comment: Performed By: #### [id number] ## ## [facility] [facility] 59301 Creatinine [Mass/Vol] 1.0 0.7 - 1.3 mg/dl Normal 10-08-19 20 [facility] ( 68447) Comment: Performed By: #### [id number] ## ## [facility] [facility] 77428 GFR/1.73 sq M predicted among Normal 10-08-2019 [facility] non-blacks MDRD (S/P/Bld) [Vol Hospital (89812) rate/Area] Comment: Result Comment: COMPREHENSIV E METABOLIC PANEL Performed By: #### [id number] ## ## [facility],[address] [place] [address] 35496 GFR/1.73 sq M >60 60 - 999 mL/min/{1.73_m2} Normal 0 [facility] non-blacks MDRD (000 00) (S/P/Bld) [...] OF AGE AND OLDER. Performed By: #### [id number] ## ## [facility],[address] [place] [address] 97231 Globulin (S) [Mass/Vol] 3.1 1.5 - 3.8 G/DL Normal 2019 [facility] ( 63279) Comment: Performed By: #### [id number] ## ## [facility],[address] [place] [address] 62024 Glucose [Mass/Vol] 110 74 - 106 mg/dl High 10-08-2019 [facility] (37930) Comment: Performed By: #### [id number] ## ## [facility],[address] [place] [address] 68525 Potassium [Moles/Vol] 2.9 3.5 - 5.1 mmol/L Critically low [facility]spital (28357) Comment: Result Comment: { CALLED TO KINGSTON@1652 / WKK { READ BACK BY KINGSTON / RA@16 52 Performed By: #### [id number] ## ## [facility],[address] [place] [address] 63308 Protein [Mass/Vol] 7.9 6.4 - 8.3 g/dl Normal 10-08-2019 [facility] ( 18417) Comment: Performed By: #### [id number] ## ## [facility] [facility] 36998 Sodium [Moles/Vol] 133 136 - 145 mmol/l Low 10-08-2019 [facility] ( 30092) Comment: Performed By: #### [id number] ## ## [facility],[address] [place] [address] 16888 Urea nitrogen [Mass/Vol] 14 6 - 20 mg/dl Normal 10-07 [facility] ( 38667) Comment: Performed By: #### [id number] ## ## [facility],[address] [place] [address] 45620 chest 2 views on 20 28-09-28 CHEST 2 VIEWS [facility] Normal 10-08-19 [facility]spital [address] [place], [place] [id number] ([id number]) Patient: JOSE ASIF Phone#: : 1960 Age: 59 Gender: M Pt. Type: ER Account: [id number] Location: [facility] Ordering: JESSICA REED Exam Date: 10/08/2019/17:06 Family Phys: VIKTOR HORTON Charge Code: 200435 Physician: Camuy Order #: [id number] DLP Dose#: PROCEDURE: X-RAY CHEST 2 VIEWS COMPARISON: [facility], XR, CHEST 2 VIEWS, 2019, 3:33. INDICATIONS: [...] 0.00 - 0.10 x10EE3/UL Normal 10-08-2019 [facility] [#/Vol] [facility] (89135) Comment: Performed By: #### [id number] ## ## [facility],[address] [place] [address] 59481 Basophils/100 WBC (Bld) 0.4 0.0 - 2.0 % Normal 2019 [facility] ( 54502) Comment: Performed By: #### [id number] ## ## [facility],[address] [place] [address] 46182 CBC + DIFF Normal 10-08-2019 [facility] (05210) Comment: Result Comment: CBC-COMPLETE BLOOD COUNT Performed By: #### [id number] ## ## [facility],[address] [place] [address] 24506 Eosinophils (Bld) 0.00 0.00 - 0.50 x10EE3/UL Normal 10-08-2019 [facility] [#/Vol] [facility] (03979) Comment: Performed By: #### [id number] ## ## [facility],[address] [place] [address] 97848 Eosinophils/100 WBC (Bld) 0.2 0.0 - 7.0 % Normal 09-10 [facility] ( 68521) Comment: Performed By: #### [id number] ## ## [facility],[address] [place] [address] 33573 Erythrocyte distribution 13.7 12.0 - 15.6 % Normal [facility] (RBC) [Ratio] [facility] (65414) Comment: Performed By: #### [id number] ## ## [facility],[address] [place] [address] 60205 Hematocrit (Bld) [Volume 51.5 40.0 - 52.0 % Normal [facility] ( 54927) Comment: Performed By: #### [id number] ## ## [facility],[address] [place] [address] 54094 Hemoglobin (Bld) 18.3 13.0 - 17.5 g/dl High 10-08-2019 [facility] [Mass/Vol] [facility] (44468) Comment: Performed By: #### [id number] ## ## [facility],[address] [place] [address] 46473 Lymphocytes (Bld) 1.50 0.80 - 2.80 x10EE3/UL Normal 10-08-2019 [facility] [#/Vol] [facility] (71048) Comment: Performed By: #### [id number] ## ## [facility],[address] [place] [address] 90898 Lymphocytes/100 WBC (Bld) 11.1 20.0 - 45.0 % Low [facility] ( 02826) Comment: Performed By: #### [id number] ## ## [facility],[address] [place] [address] 39575 MANUAL DIFF N/A Normal 10-08-2019 [facility] (84705) Comment: Performed By: #### [id number] ## ## [facility],[address] [place] [address] 82205 MCH (RBC) [Entitic mass] 29 27 - 33 pg Normal 10-07 [facility] ( 32348) Comment: Performed By: #### [id number] ## ## [facility],[address] [place] [address] 18577 MCHC (RBC) [Mass/Vol] 36 32 - 36 X10 3 Normal 10-08-19 20 [facility] ( 87174) Comment: Performed By: #### [id number] ## ## [facility],[address] [place] [address] 91355 MCV (RBC) [Entitic vol] 82 81 - 98 fl Normal 2019 [facility] ( 63239) Comment: Performed By: #### [id number] ## ## [facility],[address] [place] [address] 17097 Monocytes (Bld) 1.00 0.20 - 1.00 x10EE3/UL Normal 10-08-2019 [facility] [#/Vol] [facility] (85629) Comment: Performed By: #### [id number] ## ## [facility],[address] [place] [address] 14670 MONOS % 7.4 0.0 - 10.0 % Normal 10-08-2019 [facility] (77514) Comment: Performed By: #### [id number] ## ## [facility],[address] [place] [address] 56614 Morphology Gerardo (Bld) [Interp] N/A Normal 10-08-2019 [facility] ( 89057) Comment: Performed By: #### [id number] ## ## [facility],[address] [place] [address] 75259 Neutrophils (Bld) 11.00 1.50 - 7.10 x10EE3/UL High 10-08-2019 [facility] [#/Vol] [facility] (91279) Comment: Performed By: #### [id number] ## ## [facility],[address] [place] [address] 88257 Neutrophils/100 WBC (Bld) 80.9 46.0 - 76.0 % High [facility] ( 10122) Comment: Performed By: #### [id number] ## ## [facility],[address] [place] [address] 99367 Platelet mean volume 8.5 6.4 - 10.5 fl Normal 10-08-19 20 [facility] (Bld) [Entitic vol] [facility] (71225) Comment: Result Comment: AUTOMATED DI FFERENTIAL Performed By: #### [id number] ## ## [facility],[address] [place] [address] 23797 Platelets (Bld) 258 150 - 450 x10EE3/UL Normal 10-08-2019 [facility] [#/Vol] [facility] (81317) Comment: Performed By: #### [id number] ## ## [facility],[address] [place] [address] 98655 RBC (Bld) [#/Vol] 6.28 4.50 - 6.00 x 10EE6/UL High 0 [facility] ( 61282) Comment: Performed By: #### [id number] ## ## [facility],[address] [place] [address] 28901 WBC (Bld) [#/Vol] 13.6 4.5 - 10.8 x 10EE3/UL High 10-08-2019 [facility] ( 46151) Comment: Performed By: #### [id number] ## ## [facility],[address] [place] [address] 32429 influenza virus rapid a/b on 2019 INFLUENZA VIRUS INFLUENZA A Normal 2019 [facility] RAPID A/B NEGATIVE [facility] INFLUENZA [facility] (16052) NEGATIVE INTERNAL NEG QC PASS INTERNAL POS [...] TO THREE DAYS. Comment: Performed By: #### [id number] ## ## [facility] saul,[address] [facility] 13227 emergency report on 2019 EMERGENCY REPORT [facility] Normal 10-03 [facility] EMERGENCY ROOM REPORT ([id number]) NAME ACCOUNT SEX AGE ADMIT DISCHARGE PT MED. 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 Phone#: : 1960 Age: 58 Gender: M Pt. Type: ER Account: [id number] Location: 2 Ordering: Jayro MARIE Exam Date: 10/04/2019/3:33 Family Phys: VIKTOR HORTON Charge Code: [id number] Physician: Camuy Order #: [id number] DLP Dose#: PROCEDURE: X-RAY CHEST 2 VIEWS [...] [id number] 1. Body weight 117.48 kg 03-11-2020 [facility] (10579) BP Diastolic 92 mm[Hg] 03-11-2020 [facility] (10370) BP Systolic 138 mm[Hg] 03-11-2020 [facility] (67648) Pulse (Heart Rate) 84 /min 03-11-2020 [facility] (70796) Respiratory Rate 16 /min 03-11-2020 [facility] (52915) Encounters Date Type Reason Provider Location 10-19-2019 - Emergency MICHAEL pradhan 10-19-2019 department patient C KINCAIDKlaus Toney [facility] visit [facility] ([phone]) SOL HORTON UNKNOWN PROVIDER UNKNOWN PROVIDER UNKNOWN PROVIDER 10-08-2019 - Emergency Shortness of breath VIKTOR milligan 10-08-2019 department patient JESSICA EVANS [place] Memoria l visit [facility] ([phone]) [facility] CAROLYN HORTON UNKNOWN PROVIDER UNKNOWN PROVIDER UNKNOWN PROVIDER 2019 - Emergency J. W[place] Perales 2019 department patient Mary WASHINGTON MARIE Memoria l visit [facility] ([phone]) [place] HORTON UNKNOWN PROVIDER UNKNOWN PROVIDER UNKNOWN PROVIDER 04-12-2020 - Patient encounter Essential Andre (Siri) Family Medicine 04-12-2020 procedure hypertension Ilan Johnson Comment: Essential hypertension (Prim shreyas Dx); Low blood potassium; Other chest pain 03-11-2020 - Patient encounter Essential Jerry (Kathya) Family Ma dicine 03-11-2020 procedure hypertension Teresa Alex Comment: Essential hypertension (Prim shreyas Dx); Pedal edema; Situational anxiety 04-12-2020 - Telemedicine Andre (Siri) [facility] melissa 04-12-2020 consultation with Ilan patient Procedures Procedure Name Date Provider Location Microscopic examination of blood, 10-19-2019 [facility] culture (24775) Comment: Performed By: #### [id number] ## ##[facility],[address] [place] [address] Microscopic examination of 10-08-2019 - 10-08-2019 [facility] blood, culture [facility] (40675) Comment: Performed By: #### [id number] ## ##[facility],[address] [place] [address] 14639 Performed By: #### [id number] ## ## [facility],[address] [place] [address] 34511 Colonoscopy 12-17-2015 - 12-17-2015 [facility] (27672) Plan of Treatment Plan Description Date Location COLONOSCOPY COLONOSCOPY 12-16-2025 - [facility] 12-16-2025 (56489) DIABETES SCREEN DIABETES SCREEN 01-01-2023 - [facility] 01-01-2023 (05906) ANNUAL PCP TEAM CHRONIC ANNUAL PCP TEAM CHRONIC 03-11-2021 - [facility] DISEASE VISIT DISEASE VISIT 03-11-2021 (16777) INFLUENZA (#1) INFLUENZA (#1) 2020 - [facility] 03-12-2020 (77615) PROSTATE CANCER PROSTATE CANCER 2017 - [facility] SCREENING DISCUSSION SCREENING DISCUSSION 2017 (09429 ) SHINGRIX VACCINE (1 of SHINGRIX VACCINE (1 of 2012 - [facility] 2) 2) 2012 (34800) LIPID SCREEN LIPID SCREEN 1997 - [facility] 1997 (41724) DTAP,TDAP,TD (1 - Tdap) DTAP,TDAP,TD (1 - Tdap) 1981 - [facility] 1981 (60165) BP CONTROLLED (<130/80) BP CONTROLLED (<130/80) 1980 - [facility] 1980 (08077) HEPATITIS C SCREENING HEPATITIS C SCREENING 1980 - [facility] 1980 (68668) HIV SCREENING HIV SCREENING 1980 - [facility] 1980 (55321) CMP (CMP) (FOR REMOTE CMP (CMP) (FOR REMOTE 04-12-2021 [facility] USE) [facility] USE) Lab Routine Low (80057) blood potassium 1 Occurrences starting 04/12/2020 until 04/12/2021 Comment: 1 Occurrences starting 04/12 until 04/12/2021 no information [facility] (51969) Payers Payer Name Policy Number Location [facility] [id number] [facility] (44 195) [facility] [employer] [id number] [facility] OUTPAITIENT ([id number]) [id number] [facility] ([id number]) [id number] [facility] ([id number]) [id number] [facility] ([id number]) The following information is from the original human readable contentNo Payer Records Found Social History Type Social History Date Location Description Tobacco use and exposure Former user 03-11-2020 - [facility] 04-12-2020 (72560) History SDOH Social 98 11-01-2019 - [facility] Phone 11-01-2019 (06133) History of tobacco use User of smokeless 10-22-2008 [facility] tobacco (95547) Alcohol intake [facility] 04-12-2020 (48222) History SDOH Alcohol 2 11-01-2019 - [facility] Frequency 11-26-2019 (93893) History SDOH Alcohol Std 1 11-01-2019 - [facility] Drinks 11-26-2019 (14539) Tobacco smoking status Never smoker 03-11-2020 - [facility] NHIS 04-12-2020 (49065) History SDOH Social 3 11-01-2019 - [facility] [employer] Living 11-26-2019 (92019) History SDOH Education 12 11-26-2019 - [facility] 11-26-2019 (01671) History SDOH Financial 4 11-26-2019 - [facility] 11-26-2019 (80881) Tobacco Comment used for 20-30 years, 10-23-2019 - [facility] quit about 13 years ago 10-23-2019 (71368) Sex Assigned At Not on file [facility] (55394) Exposure to SARS-CoV-2 Not sure [facility] (event) (90544) The following information is from the original human readable contentNo Social History Records FoundNo Social History Records FoundNo Social History Records Found Summary Purpose Family History No Family History Records FoundNo Family History Records Found Advance Directives No Advanced Directives Records Found Documents on File Type Date 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 Send me a [employer] message in 3-4 weeks with some recent [...] Dr. Sanchez ? COLONOSCOP W/ OR W/O [facility] SPEC 12/16/15 Colonoscopy ? COLONOSCOPY 2002 ? [...] agreed with the plan. Jerry Lama APRN.CNP [address] [place] [address] documented in this encounterAndre Talavera.LUCIANO Wright - [...] agrees to the visit: Yes Patient Location: [facility] Jose Asif is a 59 year [...] Dr. Sanchez ? COLONOSCOP W/ OR W/O [facility] SPEC 12/16/15 Colonoscopy ? COLONOSCOPY 2002 ? [...] Recheck CMP - CMP (CMP) (FOR REMOTE [facility] USE) 3. Other chest pain - ICD9: [...] Talavera DNP.CNP This note was completed with [employer] dictation software. Note was reviewed for accuracy. There may be minor misspellings or grammar miscues with [employer] Dictation. [place] [phone] Total appointment time on virtual with patient [...] PATIENT VISIT LEVEL 5 (Siri), LUCIAN[address] [place] [address] Additional Source Comments FOR RECORDS PERTAINING TO [...] BE BASED ON THE PRIMARY CLINICAL RECORDS. [facility] provides no warranty or guarantee of the accuracy or completeness of information in this document. UNRECOGNIZED CONTENT PROVIDED BELOW FOR UNRECOGNIZED SECTION No Status Records FoundNo Status Records Found UNRECOGNIZED CONTENT PROVIDED BELOW FOR UNRECOGNIZED SECTION INFORMATION SOURCE DATE CREATED AUTHOR AUTHOR'S ORGANIZATIO N 10/30/[address] [facility] DATE CREATED AUTHOR AUTHOR'S ORGANIZATIO N 04/12/2020 [facility] UNRECOGNIZED CONTENT PROVIDED BELOW FOR UNRECOGNIZED SECTION Source Comments In the event this information is protected by the Federal Confidentiality of Alcohol and Drug Abuse Patient Records regulations: The Federal rules restrict any use of the information to criminally investigate or prosecute any alcohol or drug abuse patient.[facility] the event this information is protected by the Federal Confidentiality of Alcohol and Drug Abuse Patient Records regulations: The Federal rules restrict any use of the information to criminally investigate or prosecute any alcohol or drug abuse patient.[facility] UNRECOGNIZED CONTENT PROVIDED BELOW FOR UNRECOGNIZED SECTION Reason for Visit Reason Comments Follow Up Elevated BP, swelling in fee ts and ankles intermittently Reason Comments Follow Up
== END 2019-11-20 15:10 | disposition home or self-care (01) ==
LOC: SDC 08:56 → AC 08:57
PROVIDERS: Anesthesiology; PCP Nurse Practitioner Family; Referring Provider Surgery; Visit Provider Surgery
PROC: (CPT 47562; principal; 2019-11-20 10:40)
DX: K80.12 Calculus of gallbladder with acute and chronic cholecystitis without obstruction (principal); K21.9 Gastro-esophageal reflux disease without esophagitis; G47.30 Sleep apnea, unspecified; I10 Essential (primary) hypertension; Z86.73 Personal history of transient ischemic attack (TIA), and cerebral infarction without residual deficits; Z79.899 Other long term (current) drug therapy
CPT/HCPCS: 00790; 47562; 36415; 80048; 85027; 88304; 93005; J7120; J0330; J2405

== ENCOUNTER → 2020-05-22 14:25 | Outpatient (CLI) | payer OTHER, SELFPAY ==
[2020-05-20 10:50] VITALS: BMI 33.6
--- NOTE | 2020-05-22 14:55 | RAD_ITS ---
STUDY: X-RAY CHEST REASON FOR EXAM: Male, 59 years old. Chest tightness, sob, upcoming heart cath TECHNIQUE: PA and lateral views of the chest. COMPARISON: 06/07/2017 FINDINGS: The lungs are clear and expanded. There is no demonstrated pleural abnormality. Normal size heart. Normal mediastinum and yoandy. Normal visualized pulmonary arteries. Normal visualized aortic arch and descending thoracic aorta. Normal visualized thoracic spine. Normal visualized ribs, clavicles, and shoulders. There is no demonstrated abnormality of the visualized soft tissue structures of the upper abdomen. RAD/Chest PA and Lateral IMPRESSION: Normal x-ray examination of the chest. Electronically Signed: Jonah Brandon MD at 15:31 EST Tel , Service support ,
[2020-05-22 15:15] LABS: Absolute Lymphocyte Count 1.42 X10^3/uL (0.83-4.51); Absolute Neutrophil Count 6.6 X10^3/uL (2.0-7.7); Basophil# 0.04 X10^3/uL; Basophil% 0.5 % (0-1); Eosinophils% 1.1 % (0-5); Hematocrit 44.6 % (40-54); Hemoglobin 15.5 g/dL (13.0-16.5); Lymphocyte # 1.42 X10^3/ul (4.0); Lymphocyte % 16.1 % (19-41); Mean Corp Hgb Conc 34.8 g/dL (32-36); Mean Corpuscular Hgb 29.4 pg (27.0-32.0); Mean Corpuscular Volume 84.6 fL (80-94); Mean Platelet Vol. 10.6 fl (6.2-12.0); Monocyte# 0.63 X10^3/uL; Monocyte% 7.1 % (0-10); NRBC Flagged by Analyzer 0 % (0-5); Neutrophil # 6.61 X10^3/uL (2.7-7.7); Neutrophil % 74.9 % (47-70); Platelet Count 230 K/mm3 (150-450); RBC Distribution Width CV 13.1 % (11.6-14.6); RBC Distribution Width SD 40.5 fl (35.1-43.9); Red Blood Count 5.27 M/mm3 (4.6-6.2); White Blood Count 8.8 K/mm3 (4.4-11.0)
[2020-05-22 15:25] LABS: Partial Thromboplast Time 27.6 Seconds (24.1-36.2); Prothrombin Time (Protime)PT. 12.7 SECONDS (11.7-14.9)
[2020-05-22 15:56] LABS: Anion Gap 5 (5-15); BUN 13 mg/dL (7-18); BUN/Creat Ratio 14.1 RATIO (10-20); Calcium,Total 8.9 mg/dL (8.5-10.1); Chloride 104 mmol/L (98-107); Creatinine, Serum 0.92 mg/dL (0.70-1.30); EST Glomerular Filtration Rate 90 mL/min (>60); Est Glom Filt Rate - Afr Amer 108 mL/min (>60); Glucose 83 mg/dL (74-106); Potassium 3.9 mmol/L (3.5-5.1); Sodium Level 136 mmol/L (136-145)
== END ==
PROVIDERS: PCP Nurse Practitioner Family; Visit Provider Specialist
DX: I10 Essential (primary) hypertension (principal); R06.02 Shortness of breath; R07.9 Chest pain, unspecified
CPT/HCPCS: 36415; 71046; 80048; 85025; 85610; 85730

== ENCOUNTER 2020-05-30 07:42 | Day surgery (SDC) | payer OTHER, SELFPAY ==
[2020-05-20 10:50] VITALS: BMI 33.6
[2020-05-29 07:35] VITALS: BMI 33.6
--- NOTE | 2020-05-30 06:03 | HP_ITS ---
HPI HPI History of Present Illness Details: 05/20/2020: This 59-year-old male referred to us because of chest tightness and shortness of breath. Patient had a stress test during which he had chest tightness at baseline and it got worse with exertion. The chest tightness is not always exertional. No clear aggravating or relieving factors. Patient had a 2D echo which was unremarkable. He has had pulmonary function tests which were unremarkable and also had a CT chest that was unremarkable. Intake Vital Signs 05/20/20 Height 6 ft 1 in 05/20/20 Weight: 255 lb 05/20/20 BP 138/92 H 05/20/20 Blood Pressure Location Lt brachial 05/20/20 Position Sitting 05/20/20 Respiration 16 05/20/20 Pulse 80 05/20/20 Pulse Source Auscultation Intake Visit Reasons: SOB/ PCP Ref. [facility] Required: No Accompanied by: None Is patient in pain?: No Allergies Sulfa (Sulfonamide Antibiotics) Allergy (Verified 05/20/20 10:52) Rash Medications omeprazole 40 mg capsule,delayed release 40 ea PO QHS 11/16/19 [History Confirmed 05/20/20] spironolactone 25 mg tablet 25 mg PO DAILY 05/17/20 [History Confirmed 05/20/20] PFSH Medical History Chest pain (Acute) Essential hypertension (Chronic) GERD (gastroesophageal reflux disease) (Chronic) Hemorrhoid (Chronic) Hyperlipidemia (Chronic) MILTON on CPAP (Chronic) Calculus of gallbladder (Resolved) Surgical History History of cholecystectomy (Resolved) History of colonoscopy (Resolved ~2015) History of hernia repair (Resolved ~2009) History of tonsillectomy (Resolved) History of wisdom tooth extraction (Resolved) Family History Mother Diabetes Hypertension Hyperlipidemia Grandmother Diabetes Social History (Updated 05/20/20 @ 12:[address] Zita Barclay MD) Smoking Status: Never smoker alcohol intake: current alcohol intake frequency: a few times a week details: Occasionally substance use type: does not use caffeine: Yes Type: coffee, tea ROS Const Const: Positive for fatigue; negative for weakness, headache(s), frequent falls, difficulty sleeping or excessive sweating Eyes Eyes: Negative for loss of peripheral vision, transient loss of vision, blurry vision, double vision or tunnel vision ENT ENT: Negative for headache(s), dizziness, Nosebleed/epistaxis or balance problems Cardio Chest Pain: Yes Frequency: daily Character: tightness Onset: other (randomly) Location: mid sternal, left chest, right chest Duration: hours (Starts after getting up in the morning and continues ) Exacerbation: eating Relieving: exercise (Occasionally help to relieve) Palpitations: Yes feels like its: irregular Edema: Bilateral Muscle aches with walking: None Resp Respiratory: Positive for SOB with activity and SOB at rest; negative for SOB orthopnea\SOB lying down, Cough or paroxysmal nocturnal dyspnea GI GI: Negative nausea, vomiting, heartburn or black,tarry stools : Negative for hematuria Musc Musc: Positive for muscle weakness (Weakness in legs over the last week); negative for muscle aches/ myalgia, joint pain or balance problems Skin Skin: Negative non-healing lesions, rash or unusual bruising Neuro Neuro: Positive for lightheadedness (head feels funny); negative for dizziness, near syncope, syncope, frequent falls, headache(s), weakness, blurry vision, double vision or lack of coordination Tre Hematologic/Lymphatic: Negative for easy bleeding or easy bruising Endo Endo: Positive for fatigue; negative for excessive sweating or increased thirst/drinking Psych Psych: Negative for anxiety or depression Allergy Allergy/Immunology: Negative for hives, Negative for rash Cardiology Exam Const Appearance: cooperative; negative acute distress Nutritional Appearance: well nourished Head Head: normocephalic and atraumatic Ears: hearing grossly normal bilaterally Nose: external nose normal Face and Sinus: face symmetric Mouth: moist mucous membranes Teeth and gingiva: fair dentition Eyes General: appearance normal, both eyes and all related structures Eyelids: eyelids normal Conjunctivae: conjunctivae normal Neck Neck: trachea midline and no JVD Chest Chest inspection: symmetric chest movement; negative pursed lip breathing Auscultation: Bilateral: Clear to Auscultation Cardio Rate: regular rate Rhythm: regular rhythm Heart sounds: S1 normal and S2 normal No Murmurs GI GI: normal to inspection Neuro General: alert, awake and oriented x3 Gait: Negative ataxic Skin Skin: no rashes or lesions noted; negative atrophy or jaundice Extremities Pulses: Normal: Right Posterior Tibial Pulse, Left Posterior Tibial Pulse Lower Extremity Edema: None: Bilateral Musculoskel Musculoskeletal: No joint tenderness Psych Psychological: normal affect Assessment & Plan 1. Chest pain, unspecified type R07.9 Plan This is concerning for unstable angina. He did have chest pain that was worse on exertion when he had a stress test. Explained the risks and benefits to the patient. Patient wants to discuss this with his and he will get back to us. If patient is agreeable we will proceed with coronary angiography. Orders Orders: Left Heart Cath/COR/LV Percut Today Basic Metabolic Profile (BMP) Today CBC W/Diff, Automated Today 2. Essential hypertension I10 Plan Detail Follow Up 6 Weeks Coding Level of Care Code Off vis,new,level 4 Diagnoses Chest pain, unspecified type R07.9 ??Chest pain type: unspecified Essential hypertension I10 Coding Level of Care Code Off vis,new,level 4 Diagnoses Chest pain, unspecified type R07.9 ??Chest pain type: unspecified Essential hypertension I10 Supplemental Info Supplemental Information Diagnostics Electrocardiogram 11/20/19 Stress Test 11/17/19 Chest X-Ray 06/07/17 Pulmonary Pulmonary Function Test 11/02/19
--- NOTE | 2020-05-30 13:56 | CL.D_ITS ---
Patient Name: ZEV ASIF Study Date: 05/30/2020 Performing: Jaclyn Barclay MD Ht: 72.83 inches 185 cm : 1960 Wt: 255.74 lbs 116 kg Age: 59 Gender: male BSA: 2.38 PROCEDURE(S) PERFORMED IS35-ZLU/COR/LV CLINICAL PROFILE AND INDICATIONS Indications: New Onset Angina <= 2 months Heart Failure: None Stress/Imaging Standard Exercise Stress Test: Yes Result: Indeterminant CAD Presentations: Unstable angina. CONCLUSIONS No significant CAD, Preserved EF, No significant or MR RECOMMENDATIONS DESCRIPTION OF PROCEDURE The patient arrived to the procedure lab. The risks and benefits of the procedure as well as a full d escription of our services here and current unavailability of surgical backup were fully explained to the patient and/or their significant other prior to the catheterization. The Timeout was completed, verifying the correct patient and procedure. The patient's procedural site was prepped and draped in the usual fashion. Local anesthetic was given subcutaneously to right radial region with Lidocaine 2% . Using a modified Seldinger technique, arterial access was obtained via the right radial artery, a 6 Fr sheath was inserted. Left Coronary Artery selective angiography was performed in multiple views u sing a 5 Fr. JL3.5 catheter. Left Ventriculography was performed in THOMAS projection using a 5 Fr. JR 4 . LV to AO pullback pressures were then recorded. Right Coronary Artery selective angiography was the n performed in multiple views using a 5 Fr. JR 4 catheter.The arterial sheath was pulled and a TR Band was applied for hemostasis. 12cc of air CORONARY ANGIOGRAPHY DOMINANCE: Right Dominant LEFT HEART ASSESSMENT Left Ventricular Ejection Fraction: by LV Gram 60 % LEFT MAIN: No significant disease noted LEFT ANTERIOR DESCENDING ARTERY: No significant disease noted CIRCUMFLEX ARTERY: No significant disease noted RIGHT CORONARY ARTERY: No significant disease noted VALVE FINDINGS: No Aortic Valve Stenosis No Mitral Insufficency COMPLICATIONS No Complications PROCEDURE MEDICATIONS Fentanyl 50 mcg IV Versed 1 mg IV Oxygen: 2 L/min via nasal cannula Heparin given IA 05/30/2020 09:44:50 Verapamil 2.5mg, Ntg 100mcgs, 3000 units of Heparin given IA 05/30/2020 09:44:50 SUMMARY OF HEMODYNAMIC DATA Time AIR REST ECG 08:21:01 AO 113/82 (97) SA 09:48:01 LV 136/-9, 9 09:53:42 LV 130/-11, 5 09:53:49 LV 124/-5, 10 09:54:40 LVp 129/-4, 6 09:54:50 AOp 131/82 (106) 09:54:55 Signed By Jaclyn Barclay MD On 05/30/2020 13:55:25 Jaclyn Barclay MD
== END 2020-05-30 11:40 | disposition home or self-care (01) ==
LOC: CLSP 07:43
PROVIDERS: PCP Nurse Practitioner Family; Referring Provider Specialist; Visit Provider Specialist
DX: R07.9 Chest pain, unspecified (principal); R06.02 Shortness of breath; I10 Essential (primary) hypertension; K21.9 Gastro-esophageal reflux disease without esophagitis; E78.5 Hyperlipidemia, unspecified; G47.33 Obstructive sleep apnea (adult) (pediatric); Z79.899 Other long term (current) drug therapy
CPT/HCPCS: 93005; 93458; 99152; 99153; J7040; Q9967; C1769; C1894

== ENCOUNTER 2020-07-31 06:24 | Day surgery (SDC) | payer OTHER, SELFPAY ==
[2020-06-28 09:13] VITALS: BMI 32.3
[2020-07-15 11:18] VITALS: BMI 33.7
--- NOTE | 2020-07-31 06:00 | HP_ITS ---
Intake Vital Signs 06/28/20 Height 6 ft 1 in 06/28/20 Weight: 245 lb 06/28/20 BMI 32.3 06/28/20 BP 153/92 H 06/28/20 Blood Pressure Location Rt brachial 06/28/20 Position Sitting 06/28/20 Respiration 18 Intake Visit Reasons: Esophagogastroduodenoscopy Chief Complaint: sob, ruq pain [employer] Required: No Is patient in pain?: Yes (ruq abdomen) Allergies Sulfa (Sulfonamide Antibiotics) Allergy (Verified 06/28/20 09:14) Rash Medications multivitamin combination no.56 tab PO 06/28/20 [History] PFS Medical History Chest pain (Acute) Essential hypertension (Chronic) GERD (gastroesophageal reflux disease) (Chronic) Hemorrhoid (Chronic) Hyperlipidemia (Chronic) MILTON on CPAP (Chronic) Calculus of gallbladder (Resolved) Surgical History History of cholecystectomy (Resolved) History of colonoscopy (Resolved ~2015) History of hernia repair (Resolved ~2009) History of left heart catheterization (Resolved 05/30/20) History of tonsillectomy (Resolved) History of wisdom tooth extraction (Resolved) Family History Mother Diabetes Hypertension Hyperlipidemia Grandmother Diabetes Social History (Updated 06/28/20 @ 09:[address] Andre Sanchez MD) Smoking Status: Never smoker alcohol intake: current alcohol intake frequency: a few times a week details: Occasionally substance use type: does not use caffeine: Yes Type: coffee, tea HPI HPI Surgical H&P: Yes HPI: ZEV ASIF, is a 59 M who presents to the office today for Evaluation for endoscopy. I last saw this patient back in November of this year I had done a laparoscopic cholecystectomy on him he was having significant right upper quadrant abdominal pain after eating. His pain improved however not soon after he had his gallbladder removed did he started to develop shortness of breath fatigue abdominal bloating pain in the right side of his upper abdomen. Patient has had a rather exhaustive heart work-up is actually had a negative heart cath he has had no new meds he is on multivitamins he has had a history of H. pylori in the past. ROS General General: Yes weight change and fatigue; no appetite, colon cancer, breast cancer or weakness HEENT HEENT: No difficulty swallowing, eye injury, eye surgery, swollen glands or hoarseness Endo Endocrine: No thyroid disease, diabetes mellitus, thyroid cancer, Hair loss, heat intolerance or cold intolerance Musc Musculoskeletal: No back problems, arthritis, rheumatoid arthritis, gout or joint pain Cardio Cardiovascular: Yes high blood pressure; no murmur, pacemaker, heart disease, atrial fibrillation, heart attack, heart stent, palpitations, shortness of breat with exertion or chest pain Psych Psychiatric: No depression, anxiety or hearing voices Resp Respiratory: Yes shortness of breath, Yes sleep apnea, No cough, No COPD, No asthma, No emphysema, No wheezing Gastro Gastrointestinal: Yes abdominal pain, No nausea or vomiting, No diarrhea, No constipation, No blood in stool, Yes acid reflux, Yes hemorrhoids, No ulcers, Yes gallbladder problem, No black,tarry stools Tre Hematologic: No blood thinners, No blood disorders, No bleeding, No anemia, No blood clots Neuro Neurologic: No weakness Exam Const General: no acute distress, well developed, well hydrated Orientation: oriented to person, oriented to place, oriented to time [facility] Head: normocephalic, atraumatic Ears: external ears normal Mouth: moist mucous membranes Eyes Sclera: sclerae normal Pupils: normal by confrontation Neck Neck: no lymphadenopathy noted Neck mass: No Thyroid: thyroid normal, symmetrical Chest Chest palpation & inspection: normal inspection of the chest Resp Effort & Inspection: normal respiratory effort Auscultation: clear to auscultation bilaterally Percussion: percussion normal Cardio Rate: regular rate Rhythm: regular rhythm Heart Sounds: no murmurs GI Palpation: soft, no hepatosplenomegaly, no masses, nontender Rectal Exam: other Other: Rectal exam deferred. Extrem General: normal to inspection, no clubbing, cyanosis or edema Assessment & Plan Problems 1. Right upper quadrant abdominal pain R10.11 2. Abdominal bloating R14.0 Plan I have discussed the above with the patient. I have offered the patient esophagogastroduodenoscopy for evaluation. I have explained the risks/benefits of the procedure and described the procedure. I have discussed the risks with the patient, including but not limited to: infection, bleeding, perforation of the GI tract requiring emergency surgery, inability to complete the procedure, injury to any internal organs, complications of anesthesia, etc. - the patient understands and agrees to proceed. I have answered all the patient's questions to the patient's satisfaction and the patient has no further questions. The patient has been given instructions for the colon cleansing preparation. We will do a biopsy of his duodenum as well as check for H. pylori. If the upper scope is negative then I think getting an MRCP to make sure that there is nothing going on with the biliopancreatic system would be appropriate. Coding Level of Care Code Off vis,est,level 3 Diagnoses Right upper quadrant abdominal pain R10.11 Abdominal bloating R14.0 COVID (Procedure Consent) Procedure Criteria Procedure Criteria: Yes Elective The surgeon/proceduralist and patient have discussed in detail the risk of exposure to and/or potential harm posed by the COVID-19 virus with having a surgery/procedure at this time versus the risk of? delaying the surgery/procedure. It is not possible to know either the risk of delaying the surgery or procedure or chance of getting an infection with perfect accuracy, but a joint decision was made between the patient and the surgeon/proceduralist ?to proceed at this time with the scheduled surgery/procedure as indicated on the consent form. I have re-examined the patient. There are no clinical changes since date of exam.
[2020-07-31 06:52] VITALS: BP 132/83; PULSE 86; RESP 16; TEMP 36.6; O2SAT 95; BMI 34.7
[2020-07-31] MEDS: Lactated Ringers 1,000 ML 100 ML IV (07:02)
--- NOTE | 2020-07-31 07:30 | EGD_PTH ---
PATIENT: ZEV ASIF LOC: EN U#:[id number] AGE/SX: 59/M ROOM: RE07/31/[address]: Dr. Andre Sanchez MD : 1960 BED: DIS: 07/31/2020 SPEC #: [id number] RECD: 07/31/20 10:52 STATUS: MATTHEW PATIÑO #: [id number] LURDES: 07/31/20 07:[address]: Andre Sanchez DEPT: SURGICAL PATHOLOGY RECD BY: Chanell Li ENTERED: 07/31/20 12:54 SP TYPE: EGD BIOPSY OT DR: Inocencia Moore, VERA Tissues: Duodenum, NOS Procedures: Surgery Specimen Level IV HEADER OPERATION: EGD ([facility] – [place]) PRE-OP DIAGNOSIS: Right upper quadrant abdominal pain; abdominal bloating TISSUE SUBMITTED: Duodenum MICROSCOPIC DIAGNOSIS Duodenum, biopsy: No pathologic change. AM:lavonne 08/01/2020 MICROSCOPIC DESCRIPTION Slides are reviewed. GROSS DESCRIPTION Received in fixative is one container labeled with the patient's name and designated duodenum. The specimen consists of two irregular fragments of light potts soft tissue that in aggregate measure 0.8 x 0.6 x 0.1 cm. The specimen is totally submitted in one cassette. / AM:lavonne 07/31/20 TC:5 CPT: 62868
[2020-07-31 07:35] VITALS: BP 132/97; BP 140/97; PULSE 86; RESP 16; TEMP 36.1; O2SAT 95
[2020-07-31 07:40] VITALS: BP 118/105; BP 132/97; PULSE 88; RESP 16; O2SAT 93
[2020-07-31 07:45] VITALS: BP 131/98; BP 132/97; PULSE 85; RESP 16; O2SAT 96
[2020-07-31 07:50] VITALS: BP 132/97; BP 136/97; PULSE 85; RESP 16; TEMP 36.4; O2SAT 97
[2020-07-31 08:15] VITALS: BP 132/97
--- NOTE | 2020-07-31 13:39 | OP.EGD_ITS ---
Patient Name: Ezequiel Perez Procedure Date: 07/31/2020 6:59 AM Date of : 1960 Age: 59 Procedure: Upper GI endoscopy Indications: Abdominal pain in the right upper quadrant, Abdominal bloating Providers: Andre Sanchez MD Referring MD: Kieran Marshall Medicines: See the Anesthesia note for documentation of the administered medications Patient Profile: This is a 59 year old male. Refer to note in patient chart for documentation of history and physical. Complications: No immediate complications. Procedure: Pre-Anesthesia Assessment: - Prior to the procedure, a History and Physical was performed, and patient medications and allergies were reviewed. The patient's tolerance of previous anesthesia was also reviewed. The risks and benefits of the procedure and the sedation options and risks were discussed with the patient. All questions were answered, and informed consent was obtained. Prior Anticoagulants: The patient has taken no previous anticoagulant or antiplatelet agents. ASA Grade Assessment: II - A patient with mild systemic disease. After reviewing the risks and benefits, the patient was deemed in satisfactory condition to undergo the procedure. After obtaining informed consent, the endoscope was passed under direct vision. Throughout the procedure, the patient's blood pressure, pulse, and oxygen saturations were monitored continuously. The gastroscope was introduced through the mouth, and advanced to the second part of duodenum. The upper GI endoscopy was accomplished without difficulty. The patient tolerated the procedure well. Scope In: 7:27:38 AM Scope Out: 7:32:04 AM Total Procedure Duration Time 0 hours 4 minutes 26 seconds Findings: A small hiatal hernia was present. No biopsies or other specimens were collected for this exam. The entire examined stomach was normal. No biopsies or other specimens were collected for this exam. The examined duodenum was normal. Biopsies for histology were taken with a cold forceps for evaluation of celiac disease. Impression: - Small hiatal hernia. No specimens collected. - Normal stomach. No specimens collected. - Normal examined duodenum. Biopsied. - For all intensive purposes this was an entirely negative study. He had absolutely no erythema within the stomach no signs of ulcers no polyps no masses his Z-line was located at 45 cm and was normal he may have had a tiny hiatal hernia. I am going to obtain stool serology as well as possible breath test for H. pylori but I doubt seriously if anything is can show up with the exam being so negative. Recommendation: - Await pathology results. - Repeat upper endoscopy PRN for surveillance. - Telephone my office for pathology results in 1 week. - Perform an H. pylori breath test at appointment to be scheduled. - Perform an H. pylori stool antigen (HpSA) test at appointment to be scheduled. - Continue present medications. Procedure Code(s): --- Professional --- 35068, Esophagogastroduodenoscopy, flexible, transoral; with biopsy, single or multiple Diagnosis Code(s): --- Professional --- K44.9, Diaphragmatic hernia without obstruction or gangrene R10.11, Right upper quadrant pain R14.0, Abdominal distension (gaseous) CPT copyright 2017 [employer]. All rights reserved. The codes documented in this report are preliminary and upon parent coach review may be revised to meet current compliance requirements. MD Andre Machado MD 07/31/2020 7:39:44 AM This report has been signed electronically. Number of Addenda: 0 Note Initiated On: 07/31/2020 6:59 AM
--- NOTE | 2020-07-31 13:39 | OP.CCLET_ITS ---
07/31/2020 Kieran Marshall Re : Upper GI endoscopy procedure for Ezequiel Mcclainr Teresa This procedure was performed on Friday, July 31, 2020. My impressions and recommendations are as follows: Impressions : - Small hiatal hernia. No specimens collected. - Normal stomach. No specimens collected. - Normal examined duodenum. Biopsied. - For all intensive purposes this was an entirely negative study. He had absolutely no erythema within the stomach no signs of ulcers no polyps no masses his Z-line was located at 45 cm and was normal he may have had a tiny hiatal hernia. I am going to obtain stool serology as well as possible breath test for H. pylori but I doubt seriously if anything is can show up with the exam being so negative. Recommendations : - Await pathology results. - Repeat upper endoscopy PRN for surveillance. - Telephone my office for pathology results in 1 week. - Perform an H. pylori breath test at appointment to be scheduled. - Perform an H. pylori stool antigen (HpSA) test at appointment to be scheduled. - Continue present medications. My findings are described in the full procedure note, which is enclosed. If I can be of further assistance, please feel free to contact me at Doctor phone number(s): , Fax: [phone], Work: . Sincerely, MD Andre Machado MD 07/31/2020 7:39:44 AM This report has been signed electronically.
== END 2020-07-31 08:24 | disposition home or self-care (01) ==
LOC: EN 06:30 → AC 06:31
PROVIDERS: PCP Nurse Practitioner Family; Referring Provider Nurse Practitioner Family; Visit Provider Surgery
PROC: 0DJ08ZZ Inspection of Upper Intestinal Tract, Via Natural or Artificial Opening Endoscopic (ICD-10-PCS; CPT 43235; principal; 2020-07-31 07:25)
DX: K44.9 Diaphragmatic hernia without obstruction or gangrene (principal); K21.9 Gastro-esophageal reflux disease without esophagitis; I10 Essential (primary) hypertension; E78.5 Hyperlipidemia, unspecified; G47.33 Obstructive sleep apnea (adult) (pediatric); Z79.899 Other long term (current) drug therapy; Z20.822 Contact with and (suspected) exposure to COVID-19
CPT/HCPCS: 43239; 87426; 88305; C9803; J7120; J2405

== ENCOUNTER 2022-09-29 09:08 | Emergency (ER) | payer OTHER, SELFPAY ==
[2022-09-29 09:09] VITALS: BP 168/111; PULSE 94; RESP 14; TEMP 36.1; O2SAT 99; BMI 36.7
--- NOTE | 2022-09-29 09:29 | EDS_ITS ---
HPI History of Present Illness Chief Complaint: Palpitations Narrative Narrative: 61-year-old male past medical history of hypertension, hypercholesterolemia has had problems with heart palpitations for the last 20 to 30 years. He states at times he used to feel his heart skip a beat. He denies any exacerbating or alleviating factors. Over the last few weeks, the skipped beats have become more frequent. At times he may have a racing heartbeat. He states that recently he wore a Holter monitor for 4 days, and sent the results in. He does not have the reading of his Holter monitor as of yet. He states he saw his primary care provider, who increased his triamterene for his blood pressure, and also for his cholesterol medication. He has an appointment to have carotid artery Dopplers performed today. He is concerned because he keeps feeling the skipped beats more frequently. They can happen when he is at rest, or when he exerts himself. This is accompanied with shortness of breath. No recent fevers or chills, or other symptoms. [facility] Medical History (Updated 09/29/22 @ 11:28 by Roel Chaves MD) Calculus of gallbladder Chest pain Essential hypertension GERD (gastroesophageal reflux disease) Hemorrhoid Hyperlipidemia MILTON on CPAP Home Medications multivitamin combination no.56 (Jt-Life Multivitamin chewable tablet) 1 tab PO DAILY 06/28/20 [History Last Taken Unknown] aspirin 81 mg chewable tablet 81 mg PO DAILY@0800 07/24/20 [History Last Taken Unknown] omeprazole 40 mg capsule,delayed release 40 mg PO DAILY 07/24/20 [History Last Taken Unknown] fenofibrate nanocrystallized 48 mg tablet 48 mg PO DAILY 09/29/22 [History Last Taken Unknown] Allergy/AdvReac Type Severity Reaction Status Date / Time Sulfa (Sulfonamide Allergy Rash Verified 09/29/22 09:09 Antibiotics) Family History Mother Diabetes Hypertension Hyperlipidemia Grandmother Diabetes Surgical History History of cholecystectomy History of colonoscopy (~2015) History of hernia repair (~2009) History of left heart catheterization (05/30/20) History of tonsillectomy History of wisdom tooth extraction Social History Smoking Status: Never smoker alcohol intake: current alcohol intake frequency: a few times a week details: Occasionally substance use type: does not use caffeine: Yes Type: coffee and tea ROS ROS ED ROS Narrative Constitutional: No fever, no chills. HEENT: No sore throat. No neck pain. No loss of vision. No rhinorrhea. Cardiovascular: No chest pain. Positive heart skipping beats/palpitations. Respiratory: No cough, positive shortness of breath. Abdominal: No abdominal pain. No nausea. No vomiting. Genitourinary: No dysuria. No hematuria. Musculoskeletal: No myalgias. No arthralgias. Neurologic: No headaches. No dizziness. No lightheadedness. Skin: No rash. No change in color. Psychiatric: No depression. No anxiety. EXAM Physical Exam Narrative Exam Narrative: Afebrile. Vital signs noted. HEENT: Normocephalic. Atraumatic. PERRL, EOMI. Neck soft and supple. No point tenderness or step off. Cardiovascular: Regular rate and rhythm. No murmurs, rubs, or gallops appreciated. Respiratory: No tachypnea. Lungs clear to auscultation bilaterally. Gastrointestinal: Abdomen soft, nontender, with normoactive bowel sounds. No rebound or guarding. Neurological: Awake. Alert. Nonfocal, nonlateralizing. Skin: No rash. Normal color. No pallor. Musculoskeletal: No pedal edema. Full range of motion extremities. Const Vital Signs: 09/29/22 09:09 09/29/22 09:38 09/29/22 11:10 Temperature 97 F L Temperature Source Temporal Pulse Rate 94 84 Respiratory Rate 14 12 Respiratory Effort Normal Non-Labored Respiratory Pattern Normal Blood Pressure 168/111 H 153/96 H Blood Pressure Mean 130 115 Pulse Ox 99 95 Oxygen Delivery Method Room Air Room Air MDM MDM MDM Narrative Medical decision making narrative: In the differential diagnosis is premature supraventricular contractions versus premature ventricular contractions versus atrial fibrillation. Patient has already worn a Holter monitor. I will obtain a chest x-ray for shortness of breath to rule out any pneumonia or pneumothorax, however this is less likely because his pulse ox is 99% on room air and he is afebrile. EKG will be obtained along with CBC, CMP, and magnesium level to look for an electrolyte imbalance causing his skipped beats. EKG was obtained and interpreted by myself as normal sinus rhythm at 88 bpm without ectopy or acute ST changes. No STEMI. There is no significant change from an EKG even dated as far back as June 07, 2017. He did have these Q waves that were present at that time and leads III and aVF. I reviewed his laboratory work and he has a normal WBC count of 10.5, hemoglobin slightly hemoconcentrated at 17.7 with a platelet count of 231. As his sodium is slightly low at 135 and chloride 97, with the elevated hemoglobin, he may be slightly dehydrated so he was bolused normal saline 1 L intravenously. Additi onally, his potassium was low at 3.1 which was replaced orally with 40 mill equivalents. Patient did relate history that in the past he had an extremely low potassium below 2. BUN and creatinine are normal. High-sensitivity troponin is 10. Chest x-ray interpreted by myself shows no acute process, no pneumonia or pneumothorax. I reviewed the radiology report which confirms my independent interpretation. At this point in time, he has already worn a Holter monitor/heart monitor, with results pending. I feel he can be discharged safely home to follow-up with his primary care provider for possible referral to cardiology based on the results of his monitor. Return instructions to the emergency department were reviewed. Disposition is discharged home in stable condition. History & Record Review Discussion w/independent historian: Patient and Family Additional record(s) reviewed:: Prior outpatient record and Prior ED visit Lab Data Attestation: I reviewed the patient's lab results. Labs: Laboratory Results - last 24 hr 09/29/22 09/29/22 08:40 08:40 WBC 10.5 RBC 5.85 Hgb 17.7 H Hct 48.8 MCV 83.4 MCH 30.3 MCHC 36.3 H RDW Std Deviation 38.8 RDW Coeff of Sherrill 12.8 Plt Count 231 MPV 10.3 Immature Gran % (Auto) 0.600 Neut % (Auto) 78.7 H Lymph % (Auto) 13.7 L [place] % (Auto) 5.8 Eos % (Auto) 0.6 Baso % (Auto) 0.6 Absolute Neuts (auto) 8.3 H Absolute Lymphs (auto) 1.43 Nucleated RBC % 0 Sodium 135 L Potassium 3.1 L Chloride 97 L Carbon Dioxide 32.0 Anion Gap 6 BUN 14 Creatinine 1.10 Estim Creat Clear Calc 77.01 Est GFR (MDRD) Af Amer 88 Est GFR (MDRD) Non-Af 73 BUN/Creatinine Ratio 12.7 Glucose 105 Calcium 9.3 Magnesium 2.4 Total Bilirubin 0.90 AST 48 H ALT 74 H Alkaline Phosphatase 58 Troponin I High Sens 10 Total Protein 7.8 Albumin 4.1 Globulin 3.7 Albumin/Globulin Ratio 1.1 Radiography Diagnostic Testing: Clinical Impression(s) from Imaging Studies Chest X-Ray 09/29/22 09:35 IMPRESSION: No acute abnormality is seen. Electronically Signed: Dimitrios Bhakta MD at 9:57 EDT , Discharge Plan Triage Chief Complaint: Palpitations ED Provider: Roel Chaves Dx/Rx/DC Orders Clinical Impression: Heart palpitations, Essential hypertension, Hypokalemia Instructions: ED Hypertension, Established, ED Hypokalemia, ED Palpitations Prescriptions: No Action multivitamin combination no.56 tablet,chewable 1 tab PO DAILY omeprazole 40 MG capsule,delayed release(DR/EC) 40 mg PO DAILY aspirin 81 MG tablet,chewable 81 mg PO DAILY@0800 fenofibrate nanocrystallized 48 mg tablet 48 mg PO DAILY Label Comments: TAKE 1 TABLET BY MOUTH ONCE DAILY Primary Care Provider: Inocencia Moore NP Referrals: Inocencia Moore NP, [employer] [Primary Care Provider] - As soon as possible Activity Restrictions/Additional Instructions: Have your potassium rechecked by your primary care provider in the next few days. You may require further potassium supplementation. Disposition Disposition: Home, Self Care
--- NOTE | 2022-09-29 09:35 | RAD_ITS ---
STUDY: X-RAY CHEST REASON FOR EXAM: Male, 61 years old. CAD TECHNIQUE: Single AP portable view of the chest. COMPARISON: Comparison is made with prior study June 21, 2020. FINDINGS: EKG electrodes are seen. Stable elevation of the right hemidiaphragm. No acute abnormality is seen. There is no demonstrated pleural abnormality. Normal size heart. Normal mediastinum and yoandy. Normal visualized pulmonary arteries. There is atherosclerotic tortuosity of the aortic arch and descending thoracic aorta. There are degenerative changes of the visualized thoracic spine. Normal visualized ribs, clavicles, and shoulders. There is no demonstrated abnormality of the visualized soft tissue structures of the upper abdomen. RAD/Chest 1 View (Portable) IMPRESSION: No acute abnormality is seen. Electronically Signed: Dimitrios Bhakta MD at 9:57 EDT ,
[2022-09-29 09:47] LABS: Absolute Lymphocyte Count 1.43 X10^3/uL (0.83-4.51); Absolute Neutrophil Count 8.3 X10^3/uL (2.0-7.7); Basophil# 0.06 X10^3/uL; Basophil% 0.6 % (0-1); Eosinophil# 0.06 X10^3/uL; Eosinophils% 0.6 % (0-5); Hematocrit 48.8 % (40-54); Hemoglobin 17.7 g/dL (13.0-16.5); Lymphocyte # 1.43 X10^3/ul (0.83-4.51); Lymphocyte % 13.7 % (19-41); Mean Corp Hgb Conc 36.3 g/dL (32-36); Mean Corpuscular Hgb 30.3 pg (27.0-32.0); Mean Corpuscular Volume 83.4 fL (80-94); Mean Platelet Vol. 10.3 fl (6.2-12.0); Monocyte# 0.61 X10^3/uL; Monocyte% 5.8 % (0-10); NRBC Flagged by Analyzer 0 % (0-5); Neutrophil # 8.25 X10^3/uL (2.7-7.7); Neutrophil % 78.7 % (47-70); Platelet Count 231 K/mm3 (150-450); RBC Distribution Width CV 12.8 % (11.6-14.6); RBC Distribution Width SD 38.8 fl (35.1-43.9); Red Blood Count 5.85 M/mm3 (4.6-6.2); White Blood Count 10.5 K/mm3 (4.4-11.0)
[2022-09-29 10:05] LABS: ALB/GLOB Ratio 1.1 RATIO (0.9-2.4); AST(SGOT) 48 U/L (15-37); Alanine Aminotransfer ALT/SGPT 74 U/L (16-61); Albumin, Serum 4.1 g/dL (3.2-5.0); Alkaline Phosphatase 58 U/L (45-117); Anion Gap 6 (5-15); BUN 14 mg/dL (7-18); BUN/Creat Ratio 12.7 RATIO (10-20); Calcium,Total 9.3 mg/dL (8.5-10.1); Chloride 97 mmol/L (98-107); EST Glomerular Filtration Rate 73 mL/min (>60); Est Glom Filt Rate - Afr Amer 88 mL/min (>60); Estimated Creatinine Clearance 77.01 ml/min; Globulin 3.7 g/dL (2.2-4.2); Glucose 105 mg/dL (74-106); Magnesium 2.4 mg/dL (1.6-2.6); Potassium 3.1 mmol/L (3.5-5.1); Protein, Total 7.8 g/dL (6.4-8.2); Sodium Level 135 mmol/L (136-145); Troponin-I HS 10 pg/mL (3.0-78.0)
[2022-09-29] MEDS: 0.9% Normal Saline 1,000 ML 999 ML IV (10:52)
[2022-09-29] MEDS: Potassium Chloride Oral Tablet 20 MEQ 40 MEQ PO (10:52)
[2022-09-29 11:10] VITALS: BP 153/96; PULSE 84; RESP 12; O2SAT 95
[2022-09-29 11:48] VITALS: BP 150/92; PULSE 87; RESP 13; O2SAT 95
== END 2022-09-29 11:49 | disposition home or self-care (01) ==
PROVIDERS: Emergency Provider Emergency Medicine; PCP Nurse Practitioner Family; Visit Provider Emergency Medicine
DX: R00.2 Palpitations (principal); E87.6 Hypokalemia; E78.00 Pure hypercholesterolemia, unspecified; R06.02 Shortness of breath; I10 Essential (primary) hypertension
CPT/HCPCS: 71045; 80053; 83735; 84484; 85025; 93005; 96360; 99284; J7030; A4216